=== PATIENT | female | born 1975 | race African-American/Black ===

== ENCOUNTER 2018-02-13 08:09 | Emergency (ER) | payer OTHER ==
[2018-02-13 09:10] LABS: Absolute Lymphocytes (CBC) 2.3 K/uL (0.7-4.9); Absolute Monocytes 0.4 K/uL (0.1-1.3); Absolute Neutrophil 4.7 K/uL (1.8-8.0); Basophils % 0.6 % (0-1.3); Eosinophils % 2.2 % (0-4.4); Hematocrit 39.2 % (36.0-45.0); Lymphocytes % 29.5 % (15.3-44.8); MCH 26.9 pg (27.0-35.0); MCV 83.8 fL (80-100); MPV 9.2 fL (7.6-11.3); Monocytes % 5.7 % (3.3-12.3); RBC Red Blood Cell Count 4.68 M/uL (3.86-4.86)
[2018-02-13] MEDS ORDERED: KETOROLAC 30 MG/ML INJ ONE (09:37)
[2018-02-13 10:01] LABS: Thyroid Stimulating Hormone 1.08 uIU/mL (0.34-5.60)
--- NOTE | 2018-02-13 10:49 | RAD REPORT ---
EXAM DESCRIPTION: CT - Soft Tissue Neck W/Contr - 02/13/2018 10:19 am CLINICAL HISTORY: Neck pain and neck swelling COMPARISON: September 2017 TECHNIQUE: Computed axial tomography of the neck was obtained. 50 cc Isovue-300 administered intrave nously. Coronal and sagittal reconstruction was performed All CT scans are performed using dose optimization technique as appropriate and may include automated exposure control or mA/KV adjustment according to patient size. FINDINGS: The adenoids and tonsils are mildly prominent without change from the prior exam. No stran ding is seen within the parapharyngeal fat. The remainder of the pharynx, larynx, tongue base and sub glottic trachea appear unremarkable. A left thyroidectomy has been performed. The right lobe of the thyroid gland is homogeneous. No lymphadenopathy is seen. The parotid and submandibular glands appear unremarkable. IMPRESSION: Mild prominence of the tonsils and adenoids without change from the prior exam may gopal jolie hypertrophy. Otherwise, unremarkable exam
--- NOTE | 2018-02-13 10:56 | ER ---
Nurse's Notes [facility] Name: Italia Avendano Age: 42 yrs Sex: Female : 1975 Arrival Date: 02/13/2018 Time: 08:12 Bed 20 Private MD: Diagnosis: Cervicalgia Presentation: 02/13 08:15 Presenting complaint: Patient states: Upper back and right sided neck pain x 4 days. hb Denies injury/fever. Transition of care: patient was not received from another setting of care. Onset of symptoms was February 10, 2018. Initial Sepsis Screen: Does the patient meet any 2 criteria? No. Patient's initial sepsis screen is negative. Does the patient have a suspected source of infection? No. Patient's initial sepsis screen is negative. Care prior to arrival: Aleve at 0300. 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 - Social history:: Smoking status: Patient/guardian denies using tobacco. Screenin:20 Abuse screen: Denies threats or abuse. Nutritional screening: No deficits noted. tw2 Tuberculosis screening: No symptoms or risk factors identified. Fall Risk None identified. Assessment: 08:25 General: Appears in no apparent distress. well groomed, Behavior is calm, cooperative, tw2 appropriate for age. Pain: Complains of pain in back of neck, right side, and pain right side of neck. Neuro: Level of Consciousness is awake, alert, obeys commands, Oriented to person, place, time, situation. Cardiovascular: Denies chest pain, shortness of breath, Heart tones S1 S2 Capillary refill < 3 seconds Patient's skin is warm and dry. Respiratory: Airway is patent Respiratory effort is even, unlabored, Respiratory pattern is regular, symmetrical, Breath sounds are clear bilaterally. GI: No signs and/or symptoms were reported involving the gastrointestinal system. : No signs and/or symptoms were reported regarding the genitourinary system. EENT: No signs and/or symptoms were reported regarding the EENT system. Derm: No signs and/or symptoms reported regarding the dermatologic system. Musculoskeletal: Reports pain in neck and upper back. 09:46 Reassessment: Patient appears in no apparent distress at this time. Patient and/or tw2 family updated on plan of care and expected duration. Pain level reassessed. Patient is alert, oriented x 3, equal unlabored respirations, skin warm/dry/pink. 10:34 Reassessment: Patient appears in no apparent distress at this time. Patient and/or tw2 family updated on plan of care and expected duration. Pain level reassessed. Patient is alert, oriented x 3, equal unlabored respirations, skin warm/dry/pink. 11:14 Reassessment: Patient appears in no apparent distress at this time. Patient and/or tw2 family updated on plan of care and expected duration. Pain level reassessed. Patient is alert, oriented x 3, equal unlabored respirations, skin warm/dry/pink. Vital Signs: 08:18 BP 130 / 83; Pulse 87; Resp 16; Temp 98.2; Pulse Ox 100% on R/A; Weight 107.5 kg; hb Height 5 ft. 3 in. (160.02 cm); Pain 8/10; 09:46 BP 134 / 93; Pulse 65; Resp 18; Pulse Ox 97% on R/A; tw2 10:34 BP 143 / 90; Pulse 72; Resp 17; Pulse Ox 98% on R/A; tw2 11:14 BP 124 / 74; Pulse 65; Resp 17; Pulse Ox 98% on R/A; tw2 08:18 Body Mass Index 41.98 (107.50 kg, 160.02 cm) ED Course: 08:12 Patient arrived in ED. mr 08:17 Triage completed. hb 08:17 Caty Diggs FNP-C is PHCP. kb 08:17 Jourdan Sanchez MD is Attending Physician. kb 08:18 Arm band placed on right wrist. hb 08:19 Deidre Alvarado, DESHAWN is Primary Nurse. tw2 08:20 Bed in low position. Call light in reach. Pulse ox on. NIBP on. tw2 08:40 No provider procedures requiring assistance completed. Missed attempt(s): 22 gauge in tw2 right antecubital area. Bleeding controlled, band aid applied, catheter tip intact. Inserted saline lock: 24 gauge in left antecubital area, using aseptic technique. Blood collected. 08:58 Radiology exam delayed due to lab results not completed at this time. (BUN/Creatinine). kw1 10:20 CT Soft Tissue Neck W/contr In Process Unspecified. EDMS 11:23 IV discontinued, intact, bleeding controlled, No redness/swelling at site. Pressure tw2 dressing applied. Administered Medications: 09:45 Drug: TORadol 30 mg Route: IVP; Site: left antecubital; tw2 11:23 Follow up: Response: No adverse reaction; Pain is decreased tw2 Outcome: 10:55 Discharge ordered by . marie 11:23 Discharged to home ambulatory. tw2 11:23 Condition: stable 11:23 Discharge instructions given to patient, Instructed on discharge instructions, follow up and referral plans. no drinking with medication, no driving heavy equipment, medication usage, Demonstrated understanding of instructions, follow-up care, medications, Prescriptions given X 1. 11:23 Patient left the ED. tw2 Signatures: Dispatcher [employer] EDMS Caty Diggs, BAG SHOP WORKER-C BAG SHOP WORKER-Lidia Her Heather, RN RN Deidre Alvarado RN RN tw2 Jazzy Jackson kw1
--- NOTE | 2018-02-13 10:56 | EDPHYS ---
Physician Documentation [facility] Name: Italia Avendano Age: 42 yrs Sex: Female : 1975 Arrival Date: 02/13/2018 Time: 08:12 Bed 20 Private MD: ED Physician Jourdan Sanchez HPI: 02/13 08:54 This 42 yrs old Black Female presents to ER via Ambulatory with complaints of Back kb Pain, Neck Problem. 08:54 The patient or guardian complains of pain, that is acute, tenderness. The symptoms are kb located at the right trapezius and right side of neck. Onset: The symptoms/episode began/occurred 5 day(s) ago. Context: The problem was sustained at home, The neck injury/problem resulted from from unknown cause. Associated signs and symptoms: The patient has no apparent associated signs or symptoms, The patient denies any alcohol use. The patient is not apparently intoxicated. No neurological symptoms were experienced by the patient prior to arrival in the emergency department. The pain radiates to the right trapezius. Modifying factors: The symptoms are alleviated by nothing. the symptoms are aggravated by movement, pressure. Severity of symptoms: At their worst the symptoms were moderate, in the emergency department the symptoms are unchanged. The patient has not experienced similar symptoms in the past. The patient has not recently seen a physician. 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 - Social history:: Smoking status: Patient/guardian denies using tobacco. ROS: 08:52 Constitutional: Negative for fever, chills, and weight loss, ENT: Negative for injury, kb pain, and discharge, Cardiovascular: Negative for chest pain, palpitations, and edema, Respiratory: Negative for shortness of breath, cough, wheezing, and pleuritic chest pain, Abdomen/GI: Negative for abdominal pain, nausea, vomiting, diarrhea, and constipation, : Negative for injury, bleeding, discharge, and swelling, MS/Extremity: Negative for injury and deformity, Skin: Negative for injury, rash, and discoloration, Neuro: Negative for headache, weakness, numbness, tingling, and seizure. 08:52 Neck: Positive for pain with movement, pain at rest, tenderness, of the right side of neck. 08:52 Back: Positive for pain at rest, pain with movement, of the right trapezius. Exam: 08:52 Constitutional: This is a well developed, well nourished patient who is awake, alert, kb and in no acute distress. Head/Face: Normocephalic, atraumatic. Chest/axilla: Normal chest wall appearance and motion. Nontender with no deformity. No lesions are appreciated. Cardiovascular: Regular rate and rhythm with a normal S1 and S2. No gallops, murmurs, or rubs. Normal PMI, no JVD. No pulse deficits. Respiratory: Lungs have equal breath sounds bilaterally, clear to auscultation and percussion. No rales, rhonchi or wheezes noted. No increased work of breathing, no retractions or nasal flaring. Abdomen/GI: Soft, non-tender, with normal bowel sounds. No distension or tympany. No guarding or rebound. No evidence of tenderness throughout. Skin: Warm, dry with normal turgor. Normal color with no rashes, no lesions, and no evidence of cellulitis. MS/ Extremity: Pulses equal, no cyanosis. Neurovascular intact. Full, normal range of motion. Neuro: Awake and alert, GCS 15, oriented to person, place, time, and situation. Cranial nerves II-XII grossly intact. Motor strength 5/5 in all extremities. Sensory grossly intact. Cerebellar exam normal. Normal gait. 08:52 Neck: External neck: tenderness, that is moderate, of the right side of neck. 08:52 Back: pain, that is moderate, ROM is painful, with rotation to the left, vertebral tenderness, is not appreciated. Vital Signs: 08:18 BP 130 / 83; Pulse 87; Resp 16; Temp 98.2; Pulse Ox 100% on R/A; Weight 107.5 kg; hb Height 5 ft. 3 in. (160.02 cm); Pain 8/10; 09:46 BP 134 / 93; Pulse 65; Resp 18; Pulse Ox 97% on R/A; tw2 10:34 BP 143 / 90; Pulse 72; Resp 17; Pulse Ox 98% on R/A; tw2 11:14 BP 124 / 74; Pulse 65; Resp 17; Pulse Ox 98% on R/A; tw2 08:18 Body Mass Index 41.98 (107.50 kg, 160.02 cm) hb MDM: 08:19 Patient medically screened. kb 08:54 Data reviewed: vital signs, nurses notes. Data interpreted: Pulse oximetry: on room air kb is 100 %. Interpretation: normal. 10:53 Counseling: I had a detailed discussion with the patient and/or guardian regarding: the kb historical points, exam findings, and any diagnostic results supporting the discharge/admit diagnosis, lab results, radiology results, the need for outpatient follow up, a family practitioner, to return to the emergency department if symptoms worsen or persist or if there are any questions or concerns that arise at home. 02/13 08:27 Order name: CBC with Diff; Complete Time: 09:14 kb 02/13 08:27 Order name: Basic Metabolic Panel; Complete Time: 10:04 kb 02/13 08:27 Order name: IV Start; Complete Time: 08:44 kb 02/13 08:27 Order name: CT Soft Tissue Neck W/contr; Complete Time: 10:50 kb 02/13 08:27 Order name: TSH; Complete Time: 10:04 kb Administered Medications: 09:45 Drug: TORadol 30 mg Route: IVP; Site: left antecubital; tw2 11:23 Follow up: Response: No adverse reaction; Pain is decreased tw2 Disposition: 14:19 Co-signature as Attending Physician, Jourdan Sanchez MD I agree with the assessment and vince plan of care. Disposition: 02/13/18 10:55 Discharged to Home. Impression: Cervicalgia. - Condition is Stable. - Discharge Instructions: Muscle Pain, Adult. - Prescriptions for Cyclobenzaprine 10 mg Oral Tablet - take 1 tablet by ORAL route every 8 hours As needed; 21 tablet. - Medication Reconciliation Form, Thank You Letter, Antibiotic Education, Prescription Opioid Use, Work release form form. - Follow up: Emergency Department; When: As needed; Reason: Worsening of condition. Follow up: Private Physician; When: 2 - 3 days; Reason: Recheck today's complaints, Continuance of care, Re-evaluation by your physician. Signatures: Dispatcher [employer] Caty Owens FNP-C CAN LINE OPERATOR-Jourdan Auguste MD MD cha Baxter, Heather, RN RN Deidre Alvarado RN RN tw2 Corrections: (The following items were deleted from the chart) 11:23 10:55 02/13/2018 10:55 Discharged to Home. Impression: Cervicalgia. Condition is tw2 Stable. Forms are Medication Reconciliation Form, Thank You Letter, Antibiotic Education, Prescription Opioid Use. Follow up: Emergency Department; When: As needed; Reason: Worsening of condition. Follow up: Private Physician; When: 2 - 3 days; Reason: Recheck today's complaints, Continuance of care, Re-evaluation by your physician. kb
[2018-02-13 11:27] VITALS: TEMP 98.2
[2018-02-13 11:30] VITALS: O2SAT 98
[2018-02-13 11:31] VITALS: BP 124/74
== END 2018-02-13 11:23 | disposition home or self-care (01) ==
LOC: ER 08:09
DX: M54.2 Cervicalgia (principal); Z88.0 Allergy status to penicillin; Z91.013 Allergy to seafood
CPT/HCPCS: 36415; 70491; 80048; 84443; 85025; 96374; 99284; Q9967

== ENCOUNTER 2018-11-15 09:12 | Emergency (ER) | payer OTHER ==
[2018-11-15] MEDS ORDERED: IBUPROFEN 400 MG TAB ONE (09:59)
[2018-11-15] MEDS ORDERED: NA CHLORIDE 0.9% 1,000 ML ONE (09:59)
--- NOTE | 2018-11-15 10:10 | RAD REPORT ---
EXAM DESCRIPTION: CT - Head Brain Wo Cont - 11/15/2018 10:04 am CLINICAL HISTORY: HEADACHE COMPARISON: No comparisons TECHNIQUE: All CT scans are performed using dose optimization technique as appropriate and may inclu de automated exposure control or mA/KV adjustment according to patient size. FINDINGS: No intracranial hemorrhage, hydrocephalus or extra-axial fluid collection.No areas of brai n edema or evidence of midline shift. The paranasal sinuses and mastoids are clear. The calvarium is intact. IMPRESSION: No acute intracranial abnormality.
--- NOTE | 2018-11-15 10:21 | RAD REPORT ---
EXAM DESCRIPTION: RAD - Chest Single View - 11/15/2018 10:16 am CLINICAL HISTORY: CHEST PAIN Chest pain. COMPARISON: No comparisons FINDINGS: Portable technique limits examination quality. The lungs are grossly clear. The heart is normal in size. No displaced fractures. IMPRESSION: No acute intrathoracic process suspected.
[2018-11-15] MEDS ORDERED: MEPERIDINE HCL 25 MG/0.5 ML ONE (10:42)
[2018-11-15] MEDS ORDERED: ONDANSETRON 4 MG/2 ML VIAL ONE (10:42)
[2018-11-15 10:46] LABS: Absolute Lymphocytes (CBC) 2.1 K/uL (0.7-4.9); Absolute Monocytes 0.3 K/uL (0.1-1.3); Absolute Neutrophil 4.6 K/uL (1.8-8.0); Basophils % 0.2 % (0-1.3); Eosinophils % 0.9 % (0-4.4); Hematocrit 39.8 % (36.0-45.0); Lymphocytes % 29.7 % (15.3-44.8); MPV 8.7 fL (7.6-11.3); Monocytes % 4.2 % (3.3-12.3); RBC Red Blood Cell Count 4.72 M/uL (3.86-4.86)
[2018-11-15 10:55] LABS: BUN Blood Urea Nitrogen 14 mg/dL (7-18); Bicarbonate 29 mmol/L (21-32); Glucose Level 101 mg/dL (74-106); NT PRO-BNP 8 pg/mL (<125); Potassium 3.7 mmol/L (3.5-5.1); Sodium Level 139 mmol/L (136-145); Troponin (Emerg Dept Use Only) < 0.02 ng/mL (0.0-0.045)
--- NOTE | 2018-11-15 11:30 | EDPHYS ---
Physician Documentation [facility] Name: Italia Avendano Age: 43 yrs Sex: Female : 1975 Arrival Date: 11/15/2018 Time: 09:15 Bed External Waiting Private MD: Ashanti Leach H ED Physician Ga Diaz HPI: 11/15 11:14 This 43 yrs old Black Female presents to ER via Ambulatory with complaints of rn Nausea/Vomiting, Headache, Neck Pain, >24Hrs Old, Chest Pain. 11:14 The patient complains of pain to the forehead. The patient describes the headache as rn aching. Onset: The symptoms/episode began/occurred 3 day(s) ago. Associated signs and symptoms: Pertinent positives: nausea, vomiting, Pertinent negatives: altered mental status, fever, vision changes, vision loss. Severity of symptoms: At its worst the pain was mild, in the emergency department the pain is unchanged. The symptoms are alleviated by nothing. the symptoms are aggravated by nothing. The patient has experienced similar episodes in the past. Reports hx of migraines, for last 3 days has been having headache not as bad as previous headaches, assoc with neck pain/nausea/chills/malaise. NO focal weakness or neuro complaints. . Historical: - Allergies: 09:30 PENICILLINS; ss 09:30 SHELLFISH; ss - PMHx: 13:02 Thyroid problem; Hypertension; sg - PSHx: 09:30 partial thyroidectomy; Tubal ligation; ss - Immunization history:: Adult Immunizations unknown. - Social history:: Smoking status: Patient/guardian denies using tobacco. - Ebola Screening: : Patient denies exposure to infectious person Patient denies travel to an Ebola-affected area in the 21 days before illness onset. Exam: 10:28 ECG was reviewed by the Attending Physician. rn Vital Signs: 09:30 BP 130 / 87; Pulse 104; Resp 15; Temp 99.3(TE); Pulse Ox 100% on R/A; Weight 111.58 kg; ss Height 5 ft. 3 in. (160.02 cm); Pain 10/10; 10:00 BP 142 / 98; Pulse 92; Resp 17; Pulse Ox 99% on R/A; Pain 7/10; sg 11:15 BP 140 / 112; Pulse 92; Resp 16; Pulse Ox 99% on R/A; sg 12:50 BP 121 / 97; Pulse 77; Resp 17; Pulse Ox 100% on R/A; sg 09:30 Body Mass Index 43.58 (111.58 kg, 160.02 cm) ss Annia Coma Score: 11:27 Eye Response: spontaneous(4). Verbal Response: oriented(5). Motor Response: obeys rn commands(6). Total: 15. MDM: 09:36 Patient medically screened. rn 11:27 Differential diagnosis: hypertensive headache, migraine, sinusitis, tension headache, rn vasomotor headache. Data reviewed: vital signs, nurses notes, lab test result(s), EKG, radiologic studies, CT scan, plain films, and as a result, I will discharge patient. Counseling: I had a detailed discussion with the patient and/or guardian regarding: the historical points, exam findings, and any diagnostic results supporting the discharge/admit diagnosis, lab results, radiology results, the need for outpatient follow up, to return to the emergency department if symptoms worsen or persist or if there are any questions or concerns that arise at home. Response to treatment: the patient's symptoms have mildly improved after treatment, and as a result, I will discharge patient. Special discussion: Based on the patient's history, exam, and Dx evaluation, there is no indication for emergent intervention or inpatient Tx. It is understood by the patient/guardian that if the Sx's persist or worsen they need to return immediately for re-evaluation. I discussed with the patient/guardian in detail that at this point there is no indication for admission to the hospital. It is understood, however, that if the symptoms persist or worsen the patient needs to return immediately for re-evaluation. 11:27 ED course: Constant chest pain for 3 days, normal ecg and neg trop, neg ct head, will rn dc home with return precautions, + low grade temp, possible viral cephalgia/syndrome. . 11:36 Counseling: I had a detailed discussion with the patient and/or guardian regarding: the rn presence of at least one elevated blood pressure reading (>120/80) during this emergency department visit. 11/15 09:45 Order name: CBC with Diff; Complete Time: 11: rn 11/15 09:45 Order name: Basic Metabolic Panel; Complete Time: 11: rn 11/15 09:45 Order name: Troponin (emerg Dept Use Only); Complete Time: 11:11 rn 11/15 09:45 Order name: PROBNP; Complete Time: 11: rn 11/15 09:45 Order name: Flu; Complete Time: 11: rn 11/15 09:45 Order name: [place] Screen Profile; Complete Time: 11:27 rn 11/15 09:45 Order name: CT Head Brain wo Cont; Complete Time: 10:32 rn 11/15 09:45 Order name: XRAY Chest (1 view); Complete Time: 10:32 rn 11/15 09:45 Order name: IV Start; Complete Time: 10:25 rn 11/15 09:45 Order name: EKG; Complete Time: 09:47 rn 11/15 09:45 Order name: EKG - Nurse/Tech; Complete Time: 10:25 rn EC:28 Rate is 81 beats/min. Rhythm is regular. QRS [place] is Normal. [place] interval is normal. QRS rn interval is normal. QT interval is normal. No Q waves. T waves are Normal. No ST changes noted. Clinical impression: Normal ECG. Interpreted by me. Administered Medications: 10:24 Drug: NS 0.9% 1000 ml Route: IV; Rate: 1000 ml; Site: left hand; ss 11:30 Follow up: Response: No adverse reaction; IV Status: Completed infusion; IV Intake: sv 1000ml 10:37 Drug: Zofran 4 mg Route: IVP; Site: left hand; ss 11:00 Follow up: Response: No adverse reaction sg 10:39 Drug: Motrin 800 mg Route: PO; ss 11:25 Follow up: Response: No adverse reaction sg 10:39 Drug: Demerol 25 mg Route: IVP; Site: left hand; ss 11:15 Follow up: Response: No adverse reaction sg 11:54 Drug: cloNIDine 0.1 mg Route: PO; sg 13:00 Follow up: Response: No adverse reaction; Blood pressure is lowered sv 14:05 Drug: Tylenol #3 (300 mg-30 mg) 1 tablet Route: PO; sv 14:05 Follow up: Response: Medication administered at discharge. sv Disposition: 11/15/18 11:29 Discharged to Home. Impression: Headache, Chest pain, unspecified, Cephalgia. - Condition is Stable. - Discharge Instructions: Nonspecific Chest Pain, General Headache Without Cause. - Medication Reconciliation Form, Thank You Letter, Antibiotic Education, Prescription Opioid Use form. - Follow up: Private Physician; When: As needed; Reason: Recheck today's complaints, Re-evaluation by your physician. - Problem is new. - Symptoms have improved. Signatures: Dispatcher [employer] EDMS Arlette Bryan RN RN sv Gay, Steven, RN RN Ga Diaz MD MD rn Smirch, Shelby, RN RN ss Corrections: (The following items were deleted from the chart) 14:05 11:29 11/15/2018 11:29 Discharged to Home. Impression: Headache; Chest pain, ss unspecified; Cephalgia. Condition is Stable. Forms are Medication Reconciliation Form, Thank You Letter, Antibiotic Education, Prescription Opioid Use. Follow up: Private Physician; When: As needed; Reason: Recheck today's complaints, Re-evaluation by your physician. Problem is new. Symptoms have improved. rn 17:27 14:05 11/15/2018 11:29 Discharged to Home. Impression: Headache; Chest pain, sv unspecified; Cephalgia. Condition is Stable. Discharge Instructions: Nonspecific Chest Pain, General Headache Without Cause. Forms are Medication Reconciliation Form, Thank You Letter, Antibiotic Education, Prescription Opioid Use. Follow up: Private Physician; When: As needed; Reason: Recheck today's complaints, Re-evaluation by your physician. Problem is new. Symptoms have improved. ss
--- NOTE | 2018-11-15 11:30 | ER ---
Nurse's Notes [facility] Name: Italia Avendano Age: 43 yrs Sex: Female : 1975 Arrival Date: 11/15/2018 Time: 09:15 Bed External Waiting Private MD: Ashanti Leach H Diagnosis: Headache;Chest pain, unspecified;Cephalgia Presentation: 11/15 09:26 Presenting complaint: Patient states: Throbbing headache, R sided neck pain, N/V and ss chest discomfort that began 3 days ago. Denies fever. Transition of care: patient was not received from another setting of care. Onset of symptoms was November 13, 2018. Risk Assessment: Do you want to hurt yourself or someone else? Patient reports no desire to harm self or others. Initial Sepsis Screen: Does the patient meet any 2 criteria? HR > 90 bpm. Does the patient have a suspected source of infection? No. Patient's initial sepsis screen is negative. Care prior to arrival: None. 09:26 Method Of Arrival: Ambulatory 09:26 Acuity: BARRY 3 ss Historical: - Allergies: 09:30 PENICILLINS; ss 09:30 SHELLFISH; ss - PMHx: 13:02 Thyroid problem; Hypertension; sg - PSHx: 09:30 partial thyroidectomy; Tubal ligation; ss - Immunization history:: Adult Immunizations unknown. - Social history:: Smoking status: Patient/guardian denies using tobacco. - Ebola Screening: : Patient denies exposure to infectious person Patient denies travel to an Ebola-affected area in the 21 days before illness onset. Screenin:10 Abuse screen: Denies threats or abuse. Denies injuries from another. Nutritional sg screening: No deficits noted. Tuberculosis screening: No symptoms or risk factors identified. Never had TB. Fall Risk None identified. Assessment: 09:55 General: Appears in no apparent distress. comfortable, well groomed, well developed, sg well nourished, Behavior is calm, cooperative, appropriate for age. Pain: Complains of pain in head and neck Quality of pain is described as aching, throbbing. Neuro: Level of Consciousness is awake, alert, obeys commands, Oriented to person, place, time, situation, Speech is normal, Facial symmetry appears normal, Pupils are PERRLA. Cardiovascular: Patient's skin is warm and dry. Chest pain is denied. Respiratory: Airway is patent Respiratory effort is even, unlabored, Respiratory pattern is regular, symmetrical. GI: Abdomen is round Bowel sounds. : No signs and/or symptoms were reported regarding the genitourinary system. EENT: No signs and/or symptoms were reported regarding the EENT system. Derm: Skin is pink, warm \T\ dry. Musculoskeletal: No signs and/or symptoms reported regarding the musculoskeletal system. 10:00 Reassessment: Patient appears in no apparent distress at this time. attempt to find IV sg access at this time, pt reports she is a difficult stick and the ultrasound machine has to be used a lot of times. pt transported to CT will attempt to look with ultrasound when pt returns from CT. 10:07 Reassessment: xray with pt at this time. sg Vital Signs: 09:30 BP 130 / 87; Pulse 104; Resp 15; Temp 99.3(TE); Pulse Ox 100% on R/A; Weight 111.58 kg; ss Height 5 ft. 3 in. (160.02 cm); Pain 10/10; 10:00 BP 142 / 98; Pulse 92; Resp 17; Pulse Ox 99% on R/A; Pain 7/10; sg 11:15 BP 140 / 112; Pulse 92; Resp 16; Pulse Ox 99% on R/A; sg 12:50 BP 121 / 97; Pulse 77; Resp 17; Pulse Ox 100% on R/A; sg 09:30 Body Mass Index 43.58 (111.58 kg, 160.02 cm) ss Annia Coma Score: 11:27 Eye Response: spontaneous(4). Verbal Response: oriented(5). Motor Response: obeys rn commands(6). Total: 15. ED Course: 09:15 Patient arrived in ED. sb2 09:16 Ashanti Leach DO is Private Physician. sb2 09:28 Triage completed. ss 09:30 Arm band placed on right wrist. ss 09:36 Ga Diaz MD is Attending Physician. rn 10:00 Santos Mercer RN is Primary Nurse. sg 10:04 CT completed. Patient tolerated procedure well. Patient moved to CT via wheelchair. jg6 Patient moved back from CT. 10:06 CT Head Brain wo Cont In Process Unspecified. EDMS 10:12 X-ray completed. Portable x-ray completed in exam room. Patient tolerated procedure jb2 well. 10:15 XRAY Chest (1 view) In Process Unspecified. EDMS 10:21 EKG done, by monitor tech. reviewed by Ga Diaz MD. at1 10:25 Inserted saline lock: 24 gauge in left hand, using aseptic technique. Patient maintains ss SpO2 saturation greater than 95% on room air. 10:30 Patient has correct armband on for positive identification. sv 14:05 No provider procedures requiring assistance completed. IV discontinued, intact, sv bleeding controlled, No redness/swelling at site. Pressure dressing applied. Administered Medications: 10:24 Drug: NS 0.9% 1000 ml Route: IV; Rate: 1000 ml; Site: left hand; ss 11:30 Follow up: Response: No adverse reaction; IV Status: Completed infusion; IV Intake: sv 1000ml 10:37 Drug: Zofran 4 mg Route: IVP; Site: left hand; ss 11:00 Follow up: Response: No adverse reaction sg 10:39 Drug: Motrin 800 mg Route: PO; ss 11:25 Follow up: Response: No adverse reaction sg 10:39 Drug: Demerol 25 mg Route: IVP; Site: left hand; ss 11:15 Follow up: Response: No adverse reaction sg 11:54 Drug: cloNIDine 0.1 mg Route: PO; sg 13:00 Follow up: Response: No adverse reaction; Blood pressure is lowered sv 14:05 Drug: Tylenol #3 (300 mg-30 mg) 1 tablet Route: PO; sv 14:05 Follow up: Response: Medication administered at discharge. sv Intake: 11:30 IV: 1000ml; Total: 1000ml. sv Outcome: 11:29 Discharge ordered by . rn 14:05 Patient left the ED. ss 14:05 Discharged to home ambulatory, with family. sv 14:05 Condition: stable 14:05 Discharge instructions given to patient, Instructed on discharge instructions, follow up and referral plans. Demonstrated understanding of instructions, follow-up care. Signatures: Dispatcher [employer] EDMS Arlette Bryan RN RN Santos Mercer RN RN sg Alejandro Hidalgo jb2 Ga Diaz MD MD rn Smirch, Shelby, RN RN Bobbi Rodriguez, veterinary surgeon EKG Tat1 Merle Edmonds sb2 Josette Daly jg6 Corrections: (The following items were deleted from the chart) 18:06 17:27 Patient left the ED. julianne vásquez
[2018-11-15] MEDS ORDERED: cloNIDine HCl 0.1 MG TAB ONE (12:04)
--- NOTE | 2018-11-15 12:22 | EKG ---
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
[2018-11-15] MEDS ORDERED: CODEINE 30MG/APAP 300MG TAB ONE (14:01)
[2018-11-15 14:32] VITALS: TEMP 99.3
[2018-11-15 14:36] VITALS: BP 121/97; O2SAT 100
== END 2018-11-15 17:27 | disposition home or self-care (01) ==
LOC: ER 09:12
DX: R11.2 Nausea with vomiting, unspecified (principal); R51 Headache; R07.9 Chest pain, unspecified; Z88.0 Allergy status to penicillin; Z91.013 Allergy to seafood; I10 Essential (primary) hypertension
CPT/HCPCS: 36415; 70450; 71045; 80048; 83880; 84484; 85025; 86308; 87804; 93005; 96361; 96374; 96375; 99285; J2175; J2405; J7030

== ENCOUNTER 2019-02-05 08:24 | Emergency (ER) | payer OTHER ==
[2019-02-05] MEDS ORDERED: KETOROLAC 30 MG/ML INJ ONE (10:26)
--- NOTE | 2019-02-05 11:02 | RAD REPORT ---
EXAM DESCRIPTION: RAD - Knee Left 2 View - 02/05/2019 10:52 am CLINICAL HISTORY: PAIN COMPARISON: No comparisons FINDINGS: Medial compartment space narrowing is present with small tibial spine osteophytes. No frac ture, dislocation or joint effusion. IMPRESSION: Mild medial compartment osteoarthritis.
--- NOTE | 2019-02-05 11:04 | RAD REPORT ---
EXAM DESCRIPTION: RAD - Lumbar Spine 3 Views - 02/05/2019 10:53 am CLINICAL HISTORY: LOWER BACK PAIN Radiculopathy COMPARISON: Lumbar Spine 3 Views dated 02/03/2017 FINDINGS: Vertebral body heights appear maintained. No compression fracture noted. Mild disc thinnin g with small endplate osteophytes at L5-S1. No spondylolysis or spondylolisthesis. IMPRESSION: Mild spondylosis L5-S1.
--- NOTE | 2019-02-05 11:14 | ER ---
Nurse's Notes [facility] Name: Italia Avendano Age: 43 yrs Sex: Female : 1975 Arrival Date: 02/05/2019 Time: 08:26 Bed 13 Private MD: Ashanti Leach H Diagnosis: Low back pain;Pain in left knee Presentation: 02/05 08:54 Presenting complaint: Patient states: mid low back pain since Tuesday feels like needles iw in her back, pt states she was putting together furniture this weekend, also has left knee pain that feels like needles. Transition of care: patient was not received from another setting of care. Onset of symptoms was February 02, 2019. Risk Assessment: Do you want to hurt yourself or someone else? Patient reports no desire to harm self or others. Initial Sepsis Screen: Does the patient meet any 2 criteria? No. Patient's initial sepsis screen is negative. Does the patient have a suspected source of infection? No. Patient's initial sepsis screen is negative. Care prior to arrival: None. 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 - Social history:: Smoking status: Patient/guardian denies using tobacco. - Ebola Screening: : Patient negative for fever greater than or equal to 101.5 degrees Fahrenheit, and additional compatible Ebola Virus Disease symptoms Patient denies exposure to infectious person Patient denies travel to an Ebola-affected area in the 21 days before illness onset No symptoms or risks identified at this time. Screenin:05 Abuse screen: Denies threats or abuse. Denies injuries from another. Nutritional hb screening: No deficits noted. Tuberculosis screening: No symptoms or risk factors identified. Fall Risk None identified. Assessment: 09:30 General: Appears in no apparent distress. uncomfortable, Behavior is calm, cooperative. hb Pain: Pain currently is 9 out of 10 on a pain scale. Neuro: Level of Consciousness is awake, alert, obeys commands, Oriented to person, place, time, situation. Cardiovascular: Capillary refill < 3 seconds Patient's skin is warm and dry. Respiratory: Airway is patent Respiratory effort is even, unlabored, Respiratory pattern is regular, symmetrical. GI: No signs and/or symptoms were reported involving the gastrointestinal system. : No signs and/or symptoms were reported regarding the genitourinary system. EENT: No signs and/or symptoms were reported regarding the EENT system. Derm: Skin is pink, warm \T\ dry. Musculoskeletal: Reports low back and right knee pain. 10:30 Reassessment: Patient appears in no apparent distress at this time. Patient and/or hb family updated on plan of care and expected duration. Pain level reassessed. Patient is alert, oriented x 3, equal unlabored respirations, skin warm/dry/pink. 11:30 Reassessment: Patient appears in no apparent distress at this time. Patient and/or hb family updated on plan of care and expected duration. Pain level reassessed. Patient is alert, oriented x 3, equal unlabored respirations, skin warm/dry/pink. Vital Signs: 08:58 BP 129 / 84; Pulse 85; Resp 16; Temp 97.6; Pulse Ox 100% on R/A; Weight 95.25 kg; iw Height 5 ft. 2 in. (157.48 cm); Pain 10/10; 08:58 Body Mass Index 38.41 (95.25 kg, 157.48 cm) iw ED Course: 08:26 Patient arrived in ED. mr 08:27 Ashanti Leach DO is Private Physician. mr 08:47 Caty Diggs FNP-C [facility]. kb 08:47 Jourdan Sanchez MD is Attending Physician. kb 08:57 Triage completed. iw 08:58 Arm band placed on. iw 09:06 Sudha Antonio, RN is Primary Nurse. hb 09:30 Patient has correct armband on for positive identification. Bed in low position. Call hb light in reach. Side rails up X 1. 09:50 Radiology exam delayed due to test not completed at this time. jr1 10:51 Lumbar Spine (3 Views) XRAY In Process Unspecified. EDMS 10:51 Knee Left 2 View XRAY In Process Unspecified. EDMS 11:14 Angel LeachDO Benoit is Referral Physician. kb 11:30 No provider procedures requiring assistance completed. Patient did not have IV access hb during this emergency room visit. Administered Medications: 10:16 Drug: TORadol 60 mg Route: IM; Site: left deltoid; hb 11:48 Follow up: Response: No adverse reaction hj 11:36 Drug: [place] (7.5 mg-325 mg) 1 tabs Route: PO; hj 11:48 Follow up: Response: No adverse reaction; Pain is decreased hj Outcome: 11:14 Discharge ordered by MD. kb 11:30 Discharged to home ambulatory. hb 11:30 Condition: stable 11:30 Discharge instructions given to patient, Instructed on discharge instructions, follow up and referral plans. medication usage, Demonstrated understanding of instructions, follow-up care, medications. 11:31 Prescriptions given X 2. hb 11:49 Patient left the ED. hb Signatures: Dispatcher [employer] EDMS Caty Diggs, NUT THREADER-C NUT THREADER-Moni StewartaMarisol mr McelroyElvira [facility] Jaqui Khanna, RN RN Elpidio Vega RN RN hj Baxter, Heather, DESHAWN RN hb
--- NOTE | 2019-02-05 11:14 | EDPHYS ---
Physician Documentation [facility] Name: Italia Avendano Age: 43 yrs Sex: Female : 1975 Arrival Date: 02/05/2019 Time: 08:26 Bed 13 Private MD: Ashanti Leach H ED Physician Jourdan Sanchez HPI: 02/05 09:47 This 43 yrs old Black Female presents to ER via Ambulatory with complaints of Back kb Pain, Knee Pain. 09:47 The patient presents with pain that is acute, with no known mechanism of injury. The kb symptoms are located in the low back. Onset: The symptoms/episode began/occurred 4 day(s) ago. The pain does not radiate. Associated signs and symptoms: The patient has no apparent associated signs or symptoms. The problem was sustained from unknown cause. Modifying factors: The patient symptoms are alleviated by nothing, the patient symptoms are aggravated by any movement. Severity of symptoms: At their worst the symptoms were moderate, in the emergency department the symptoms are unchanged. The patient has not experienced similar symptoms in the past. The patient has not recently seen a physician. Pt reports low back pain and left knee pain that started on Tuesday. Denies any injury or trauma. . 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 - Social history:: Smoking status: Patient/guardian denies using tobacco. - Ebola Screening: : Patient negative for fever greater than or equal to 101.5 degrees Fahrenheit, and additional compatible Ebola Virus Disease symptoms Patient denies exposure to infectious person Patient denies travel to an Ebola-affected area in the 21 days before illness onset No symptoms or risks identified at this time. ROS: 09:42 Constitutional: Negative for fever, chills, and weight loss, Cardiovascular: Negative kb for chest pain, palpitations, and edema, Respiratory: Negative for shortness of breath, cough, wheezing, and pleuritic chest pain, Abdomen/GI: Negative for abdominal pain, nausea, vomiting, diarrhea, and constipation, Skin: Negative for injury, rash, and discoloration, Neuro: Negative for headache, weakness, numbness, tingling, and seizure. 09:42 Back: Positive for pain at rest, pain with movement, of the low back area. 09:42 MS/extremity: Positive for pain, tenderness, of the left knee. Exam: 09:46 Constitutional: This is a well developed, well nourished patient who is awake, alert, kb and in no acute distress. Head/Face: Normocephalic, atraumatic. Chest/axilla: Normal chest wall appearance and motion. Nontender with no deformity. No lesions are appreciated. Cardiovascular: Regular rate and rhythm with a normal S1 and S2. No gallops, murmurs, or rubs. Normal PMI, no JVD. No pulse deficits. Respiratory: Lungs have equal breath sounds bilaterally, clear to auscultation and percussion. No rales, rhonchi or wheezes noted. No increased work of breathing, no retractions or nasal flaring. Abdomen/GI: Soft, non-tender, with normal bowel sounds. No distension or tympany. No guarding or rebound. No evidence of tenderness throughout. Skin: Warm, dry with normal turgor. Normal color with no rashes, no lesions, and no evidence of cellulitis. Neuro: Awake and alert, GCS 15, oriented to person, place, time, and situation. Cranial nerves II-XII grossly intact. Motor strength 5/5 in all extremities. Sensory grossly intact. Cerebellar exam normal. Normal gait. 09:46 Back: pain, that is moderate, ROM is painful, normal spinal alignment noted. 09:46 Musculoskeletal/extremity: Extremities: grossly normal except: noted in the left knee: pain, tenderness, ROM: intact in all extremities, Circulation is intact in all extremities. Sensation intact. Weight bearing: able to fully bear weight. 09:46 Neuro: Exam negative for acute changes. Vital Signs: 08:58 BP 129 / 84; Pulse 85; Resp 16; Temp 97.6; Pulse Ox 100% on R/A; Weight 95.25 kg; iw Height 5 ft. 2 in. (157.48 cm); Pain 10/10; 08:58 Body Mass Index 38.41 (95.25 kg, 157.48 cm) iw MDM: 08:47 Patient medically screened. kb 09:46 Data reviewed: vital signs, nurses notes. Data interpreted: Pulse oximetry: on room air kb is 100 %. Interpretation: normal. 09:48 ED course: x-rays ordered per pt request. kb 11:14 Counseling: I had a detailed discussion with the patient and/or guardian regarding: the kb historical points, exam findings, and any diagnostic results supporting the discharge/admit diagnosis, radiology results, the need for outpatient follow up, a family practitioner, to return to the emergency department if symptoms worsen or persist or if there are any questions or concerns that arise at home. 02/05 09:13 Order name: Lumbar Spine (3 Views) XRAY; Complete Time: 11:05 kb 02/05 09:13 Order name: Knee Left 2 View XRAY; Complete Time: 11:05 kb Administered Medications: 10:16 Drug: TORadol 60 mg Route: IM; Site: left deltoid; hb 11:48 Follow up: Response: No adverse reaction hj 11:36 Drug: [place] (7.5 mg-325 mg) 1 tabs Route: PO; hj 11:48 Follow up: Response: No adverse reaction; Pain is decreased hj Disposition: 02/06 06:57 Co-signature as Attending Physician, Jourdan Sanchez MD I agree with the assessment and vince plan of care. Disposition: 02/05/19 11:14 Discharged to Home. Impression: Low back pain, Pain in left knee. - Condition is Stable. - Discharge Instructions: Back Injury Prevention, [id number]-[id number], Back Pain, Adult, Xmrk-[id number], Back Exercises, Atmw-[id number], Knee Pain, Afvy-cy-Jcvj. - Prescriptions for Cyclobenzaprine 10 mg Oral Tablet - take 1 tablet by ORAL route every 8 hours As needed; 21 tablet. Diclofenac Sodium 75 mg Oral Tablet, Delayed Release (E.C.) - take 1 tablet by ORAL route 2 times per day As needed; 30 tablet. - Medication Reconciliation Form, Thank You Letter, Antibiotic Education, Prescription Opioid Use form. - Follow up: Emergency Department; When: As needed; Reason: Worsening of condition. Follow up: Ashanti Leach DO; When: 2 - 3 days; Reason: Recheck today's complaints, Continuance of care, Re-evaluation by your physician. Signatures: Dispatcher [employer] EDMS Caty Diggs FNP-C COATER HAND-Ckb Jourdan Sanchez MD MD cha Williams, Irene, RN RN Elpidio Vega, RN RN Sudha Hedrick, DESHAWN HESS Corrections: (The following items were deleted from the chart) 02/05 11:49 11:14 02/05/2019 11:14 Discharged to Home. Impression: Low back pain; Pain in left hb knee. Condition is Stable. Forms are Medication Reconciliation Form, Thank You Letter, Antibiotic Education, Prescription Opioid Use. Follow up: Emergency Department; When: As needed; Reason: Worsening of condition. Follow up: Ashanti Leach; When: 2 - 3 days; Reason: Recheck today's complaints, Continuance of care, Re-evaluation by your physician. kb
[2019-02-05] MEDS ORDERED: HYDROCODONE/APAP 7.5/325 MG TAB ONE (11:50)
[2019-02-05 12:20] VITALS: BP 129/84; TEMP 97.6; O2SAT 100
== END 2019-02-05 11:49 | disposition home or self-care (01) ==
LOC: ER 08:24
DX: M54.5 Low back pain (principal); M25.562 Pain in left knee; I10 Essential (primary) hypertension; E07.9 Disorder of thyroid, unspecified; Z88.0 Allergy status to penicillin; Z91.013 Allergy to seafood
CPT/HCPCS: 72100; 96372; 99283

== ENCOUNTER 2019-02-06 21:44 | Emergency (ER) | payer OTHER ==
[2019-02-06] MEDS ORDERED: KETOROLAC 30 MG/ML INJ ONE (22:22)
[2019-02-06] MEDS ORDERED: NA CHLORIDE 0.9% 1,000 ML ONE (22:22)
[2019-02-06 22:30] LABS: Urine Blood 2+ (NEG); Urine Glucose NEGATIVE (NEG); Urine Protein TRACE (NEG); Urine Specific Gravity 1.015 (1.005-1.030)
[2019-02-06] MEDS ORDERED: ONDANSETRON 4 MG/2 ML VIAL ONE (22:34)
[2019-02-06] MEDS ORDERED: MORPHINE 4 MG/ML SYR ONE (22:34)
[2019-02-06 23:07] LABS: Absolute Lymphocytes (CBC) 0.7 K/uL (0.7-4.9); Absolute Monocytes 0.2 K/uL (0.1-1.3); Absolute Neutrophil 4.3 K/uL (1.8-8.0); Basophils % 0.4 % (0-1.3); Eosinophils % 0.4 % (0-4.4); Hematocrit 40.1 % (36.0-45.0); MPV 8.8 fL (7.6-11.3); Monocytes % 4.5 % (3.3-12.3); RBC Red Blood Cell Count 4.81 M/uL (3.86-4.86)
[2019-02-06 23:18] LABS: Albumin 3.2 g/dL (3.4-5.0); Bilirubin Direct 0.1 mg/dL (0-0.2); Bilirubin Total 0.4 mg/dL (0.2-1.0); Potassium 4.1 mmol/L (3.5-5.1); Protein, Total 8.3 g/dL (6.4-8.2)
--- NOTE | 2019-02-07 00:34 | ER ---
Nurse's Notes [facility] Name: Italia Avendano Age: 43 yrs Sex: Female : 1975 Arrival Date: 02/06/2019 Time: 21:45 Bed 23 Private MD: Ashanti Leach H Diagnosis: Sciatica, left side Presentation: 02/06 21:47 Presenting complaint: Patient states: I was here yesterday and it is the same problem ed1 except I am getting worse. I can't eat and I just throw up. Transition of care: patient was not received from another setting of care. Onset of symptoms was February 01, 2019. Risk Assessment: Do you want to hurt yourself or someone else? Patient reports no desire to harm self or others. Initial Sepsis Screen: Does the patient meet any 2 criteria? No. Patient's initial sepsis screen is negative. Does the patient have a suspected source of infection? No. Patient's initial sepsis screen is negative. Care prior to arrival: None. 21:47 Method Of Arrival: Ambulatory ed1 21:47 Acuity: BARRY 3 ed1 Triage Assessment: 21:48 General: Appears uncomfortable, Behavior is calm, cooperative. Pain: Complains of pain ed1 in low back area Pain currently is 10 out of 10 on a pain scale. 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 - Social history:: Smoking status: Patient/guardian denies using tobacco. - Ebola Screening: : Patient negative for fever greater than or equal to 101.5 degrees Fahrenheit, and additional compatible Ebola Virus Disease symptoms Patient denies exposure to infectious person Patient denies travel to an Ebola-affected area in the 21 days before illness onset No symptoms or risks identified at this time. Screenin:58 Abuse screen: Denies threats or abuse. Denies injuries from another. Nutritional ca1 screening: No deficits noted. Tuberculosis screening: No symptoms or risk factors identified. Fall Risk None identified. Assessment: 21:58 General: Appears in no apparent distress. uncomfortable, Behavior is calm, cooperative, ca1 appropriate for age. Pain: Complains of pain in low back area Pain radiates to right leg and left leg Pain currently is 10 out of 10 on a pain scale. Quality of pain is described as stinging, Pain began 2-3 days ago. Is continuous. Neuro: Level of Consciousness is awake, alert, obeys commands, Oriented to person, place, time, situation. Cardiovascular: Heart tones S1 S2 present Capillary refill < 3 seconds Patient's skin is warm and dry. Respiratory: Airway is patent Respiratory effort is even, unlabored, Respiratory pattern is regular, symmetrical, Breath sounds are clear bilaterally. GI: Abdomen is round non-distended, Bowel sounds present X 4 quads. Abd is soft and non tender X 4 quads. Reports nausea, vomiting. : No deficits noted. No signs and/or symptoms were reported regarding the genitourinary system. EENT: No deficits noted. No signs and/or symptoms were reported regarding the EENT system. Derm: Skin is intact, is healthy with good turgor, Skin is pink, warm \T\ dry. Musculoskeletal: Circulation, motion, and sensation intact. Capillary refill < 3 seconds, Range of motion: intact in all extremities. 22:55 Reassessment: Patient appears in no apparent distress at this time. Patient and/or ca1 family updated on plan of care and expected duration. Pain level reassessed. Patient is alert, oriented x 3, equal unlabored respirations, skin warm/dry/pink. Vital Signs: 21:48 BP 130 / 89; Pulse 109; Resp 20; Temp 98.7(O); Pulse Ox 96% on R/A; Weight 97.52 kg; ed1 Height 5 ft. 3 in. (160.02 cm); Pain 10/10; 22:40 BP 138 / 95; Pulse 81; Resp 19 S; Temp 98.1(O); Pulse Ox 99% on R/A; ca1 23:30 BP 140 / 98; Pulse 92; Resp 18 S; Temp 98.6(O); Pulse Ox 100% on R/A; ca1 02/07 00:53 BP 134 / 86; Pulse 79; Resp 17; Temp 98; Pulse Ox 98% ; rv 02/06 21:48 Body Mass Index 38.09 (97.52 kg, 160.02 cm) ed1 ED Course: 02/06 21:45 Patient arrived in ED. am2 21:45 Stevie Bustillos MD is Private Physician. am2 21:45 Ashanti Leach DO is Private Physician. am2 21:48 Triage completed. ed1 21:48 Arm band placed on right wrist. ed1 21:52 Reina Lyons RN is Primary Nurse. ca1 21:58 Patient has correct armband on for positive identification. Bed in low position. Call ca1 light in reach. Side rails up X 1. Pulse ox on. NIBP on. Warm blanket given. 21:59 Miguelito Garcia MD is Attending Physician. tw4 22:30 Missed attempt(s): 20 gauge in right antecubital area. 22 gauge in left antecubital ca1 area. Bleeding controlled, band aid applied, catheter tip intact. 22:40 Inserted saline lock: 20 gauge in right antecubital area, using aseptic technique. ca1 ,using aseptic technique. by Andrew Macedo RN Blood collected. 02/07 00:09 CT completed. Patient tolerated procedure well. Patient moved to CT via wheelchair. eh Patient moved back from CT. 00:11 CT Stone Protocol In Process Unspecified. EDMS 00:33 Ashanti Leach DO is Referral Physician. tw4 00:53 No provider procedures requiring assistance completed. IV discontinued, intact, rv bleeding controlled, No redness/swelling at site. Pressure dressing applied. Administered Medications: 02/06 22:18 Not Given (Physician Discretion): TORadol 30 mg IVP once tw4 22:40 Drug: NS 0.9% 1000 ml Route: IV; Rate: 1 bolus; Site: left antecubital; ca1 02/07 00:53 Follow up: IV Status: Completed infusion; IV Intake: 1000ml rv 02/06 22:42 Drug: Zofran 4 mg Route: IVP; Site: left antecubital; ca1 02/07 00:52 Follow up: Response: No adverse reaction rv 02/06 22:45 Drug: morphine 4 mg Route: IVP; Site: left antecubital; ca1 02/07 00:52 Follow up: Response: Pain is decreased rv 00:52 Drug: morphine 2 mg Route: IVP; Site: left antecubital; rv 00:52 Follow up: Response: Medication administered at discharge. rv Intake: 00:53 IV: 1000ml; Total: 1000ml. rv Outcome: 00:33 Discharge ordered by . tw4 00:54 Discharged to home ambulatory, patient verbalized she has a ride home. is rv picking her up. 00:54 Condition: good 00:54 Discharge instructions given to patient, Instructed on discharge instructions, follow up and referral plans. medication usage, Demonstrated understanding of instructions, follow-up care, medications, Prescriptions given X 2. 00:55 Patient left the ED. rv Signatures: Dispatcher [employer] EDMS Curry Ron Erika, RN RN ed1 Bobbi Brady am2 Miguelito Garcia MD MD tw4 Andrew Macedo, RN RN rv Acob, DESHAWN Huang RN ca1 Corrections: (The following items were deleted from the chart) 02/06 23:15 22:55 Missed attempt(s): 20 gauge in right antecubital area. 22 gauge in left ca1 antecubital area. Bleeding controlled, band aid applied, catheter tip intact. ca1 23:15 23:05 Inserted saline lock: 20 gauge in right antecubital area, using aseptic ca1 technique. ,using aseptic technique. by Andrew Macedo RN Blood collected. ca1 23:48 22:40 Pulse 81bpm; Resp 19bpm; Spontaneous; Pulse Ox 99% RA; Temp 98.1F Oral; ca1 ca1 02/07 00:53 00:53 BP 134 / 86; Pulse 79bpm; Resp 17bpm; Pulse Ox 98%; rv rv
--- NOTE | 2019-02-07 00:34 | EDPHYS ---
Physician Documentation [facility] Name: Italia Avendano Age: 43 yrs Sex: Female : 1975 Arrival Date: 02/06/2019 Time: 21:45 Bed 23 Private MD: Ashanti Leach H ED Physician Miguelito Garcia HPI: 02/07 04:38 This 43 yrs old Black Female presents to ER via Ambulatory with complaints of Low Back tw4 Pain. 04:38 The patient presents with pain that is acute. The patient presents with pain that is tw4 acute. The symptoms are located in the low back. The pain does not radiate. Onset: The symptoms/episode began/occurred today. Modifying factors: The patient symptoms are alleviated by nothing, the patient symptoms are aggravated by any movement. The patient has not experienced similar symptoms in the past. 04:38 Associated signs and symptoms: Pertinent positives: radiation of pain down left leg, tw4 Pertinent negatives: nausea, numbness, tingling, urinary retention, vomiting, weakness. 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 - Social history:: Smoking status: Patient/guardian denies using tobacco. - Ebola Screening: : Patient negative for fever greater than or equal to 101.5 degrees Fahrenheit, and additional compatible Ebola Virus Disease symptoms Patient denies exposure to infectious person Patient denies travel to an Ebola-affected area in the 21 days before illness onset No symptoms or risks identified at this time. ROS: 02/07 04:38 Constitutional: Negative for fever, chills, and weight loss, Eyes: Negative for injury, tw4 pain, redness, and discharge, Cardiovascular: Negative for chest pain, palpitations, and edema, Respiratory: Negative for shortness of breath, cough, wheezing, and pleuritic chest pain, Abdomen/GI: Negative for abdominal pain, nausea, vomiting, diarrhea, and constipation, MS/Extremity: Negative for injury and deformity, Skin: Negative for injury, rash, and discoloration, Neuro: Negative for headache, weakness, numbness, tingling, and seizure. Back: Positive for injury or acute deformity, decreased range of motion, pain at rest, pain with movement, radiated pain, Negative for radiated pain. Exam: 04:38 Constitutional: This is a well developed, well nourished patient who is awake, alert, tw4 and in no acute distress. Head/Face: Normocephalic, atraumatic. Chest/axilla: Normal chest wall appearance and motion. Nontender with no deformity. No lesions are appreciated. Cardiovascular: Regular rate and rhythm with a normal S1 and S2. No gallops, murmurs, or rubs. Normal PMI, no JVD. No pulse deficits. Respiratory: Lungs have equal breath sounds bilaterally, clear to auscultation and percussion. No rales, rhonchi or wheezes noted. No increased work of breathing, no retractions or nasal flaring. Abdomen/GI: Soft, non-tender, with normal bowel sounds. No distension or tympany. No guarding or rebound. No evidence of tenderness throughout. MS/ Extremity: Pulses equal, no cyanosis. Neurovascular intact. Full, normal range of motion. Neuro: Awake and alert, GCS 15, oriented to person, place, time, and situation. Cranial nerves II-XII grossly intact. Motor strength 5/5 in all extremities. Sensory grossly intact. Cerebellar exam normal. Normal gait. 04:38 Back: pain, that is moderate, of the left low back, muscle spasm, is appreciated in the left low back. Vital Signs: 02/06 21:48 BP 130 / 89; Pulse 109; Resp 20; Temp 98.7(O); Pulse Ox 96% on R/A; Weight 97.52 kg; ed1 Height 5 ft. 3 in. (160.02 cm); Pain 10/10; 22:40 BP 138 / 95; Pulse 81; Resp 19 S; Temp 98.1(O); Pulse Ox 99% on R/A; ca1 23:30 BP 140 / 98; Pulse 92; Resp 18 S; Temp 98.6(O); Pulse Ox 100% on R/A; ca1 02/07 00:53 BP 134 / 86; Pulse 79; Resp 17; Temp 98; Pulse Ox 98% ; rv 02/06 21:48 Body Mass Index 38.09 (97.52 kg, 160.02 cm) ed1 MDM: 02/06 21:59 Patient medically screened. 02/07 04:38 Differential diagnosis: arthritis, sciatica, UTI. Data reviewed: vital signs, nurses tw4 notes. Counseling: I had a detailed discussion with the patient and/or guardian regarding: the historical points, exam findings, and any diagnostic results supporting the discharge/admit diagnosis. Medication response: morphine partially relieved the patient's pain. Response to treatment: the patient's symptoms have mildly improved after treatment, and as a result, I will discharge patient. Special discussion: I discussed with the patient/guardian in detail that at this point there is no indication for admission to the hospital. It is understood, however, that if the symptoms persist or worsen the patient needs to return immediately for re-evaluation. 02/06 22:06 Order name: Basic Metabolic Panel; Complete Time: 00:35 02/07 00:35 Interpretation: Normal except: GFR 58. 02/06 22:06 Order name: CBC with Diff; Complete Time: 23:11 [facility] 02/06 22:06 Order name: Creatinine for Radiology; Complete Time: 00:35 [facility] 02/06 22:06 Order name: Hepatic Function; Complete Time: 00:35 02/07 00:35 Interpretation: Normal except: TP 8.3; ALB 3.2; GLOB 5.1; A/G 0.6. 02/06 22:06 Order name: Lipase; Complete Time: 00:35 [facility] 02/07 00:35 Interpretation: Normal except: LIP 57. 02/06 22:28 Order name: Urine Dipstick--Ancillary (enter results) [facility] 02/06 22:01 Order name: Urine Dipstick-Ancillary (obtain specimen); Complete Time: 23:16 [facility] 02/06 22:28 Order name: Urine --Ancillary (enter results) nv02/06 23:11 Order name: CT Stone Protocol [facility] 02/06 22:01 Order name: Urine Test (obtain specimen); Complete Time: 23:16 [facility] 02/06 22:06 Order name: IV Saline Lock; Complete Time: 23:16 [facility] 02/06 22:06 Order name: Labs collected and sent; Complete Time: 23:16 tw4 Administered Medications: 02/06 22:18 Not Given (Physician Discretion): TORadol 30 mg IVP once tw4 22:40 Drug: NS 0.9% 1000 ml Route: IV; Rate: 1 bolus; Site: left antecubital; ca1 02/07 00:53 Follow up: IV Status: Completed infusion; IV Intake: 1000ml rv 02/06 22:42 Drug: Zofran 4 mg Route: IVP; Site: left antecubital; ca1 02/07 00:52 Follow up: Response: No adverse reaction rv 02/06 22:45 Drug: morphine 4 mg Route: IVP; Site: left antecubital; ca1 02/07 00:52 Follow up: Response: Pain is decreased rv 00:52 Drug: morphine 2 mg Route: IVP; Site: left antecubital; rv 00:52 Follow up: Response: Medication administered at discharge. rv Disposition: 02/07/19 00:33 Discharged to Home. Impression: Sciatica, left side. - Condition is Stable. - Discharge Instructions: Sciatica. - Prescriptions for Tylenol- Codeine #4 300-60 mg Oral Tablet - take 1 tablet by ORAL route every 6 hours As needed; 6 tablet. Tramadol 50 mg Oral Tablet - take 1 tablet by ORAL route every 8 hours as needed; 12 tablet. - Medication Reconciliation Form, Thank You Letter, Antibiotic Education, Prescription Opioid Use form. - Follow up: Ashanti Leach DO; When: Upon discharge from the Emergency Department; Reason: If symptoms return, Recheck today's complaints, Continuance of care. - Problem is new. - Symptoms have improved. Signatures: Dispatcher [employer] EDMS Ayesha Alvarado RN RN ed1 Miguelito Garcia MD MD tw4 Andrew Macedo RN RN rv Reina Lyons RN RN ca1 Corrections: (The following items were deleted from the chart) 00:55 00:33 02/07/2019 00:33 Discharged to Home. Impression: Sciatica, left side. Condition rv is Stable. Forms are Medication Reconciliation Form, Thank You Letter, Antibiotic Education, Prescription Opioid Use. Follow up: Ashanti Leach; When: Upon discharge from the Emergency Department; Reason: If symptoms return, Recheck today's complaints, Continuance of care. Problem is new. Symptoms have improved. tw4
[2019-02-07] MEDS ORDERED: MORPHINE 2 MG/ML SYR ONE (01:00)
[2019-02-07 01:20] VITALS: BP 134/86; TEMP 98; O2SAT 98
--- NOTE | 2019-02-07 10:02 | RAD REPORT ---
EXAM DESCRIPTION: CT - Stone Protocol - 02/07/2019 3:05 am CLINICAL HISTORY: The patient is 43 years old and is Female; PAIN TECHNIQUE: Axial computed tomography images of the abdomen and pelvis without intravenous contrast. Sagittal and coronal reformatted images were created and reviewed. This CT exam was performed usi ng one or more of the following dose reduction techniques: automated exposure control, adjustment o f the mA and/or kV according to patient size, and/or use of iterative reconstruction technique. COMPARISON: CT of the abdomen and pelvis June 28, 2014. FINDINGS: LUNG BASES: Unremarkable. No mass. No consolidation. ABDOMEN: LIVER: Redemonstration of ill-defined low attenuating lesion within the inferior right hepatic l obe measuring grossly 2.2 x 3.1 cm is noted. This is overall unchanged from prior exam of June 042013. The liver is otherwise unremarkable. GALLBLADDER AND BILE DUCTS: No calcified stones. No ductal dilation. PANCREAS: Unremarkable. No ductal dilation. SPLEEN: Unremarkable. ADRENALS: Unremarkable. No mass. KIDNEYS AND URETERS: No obstructing stones. No hydronephrosis. STOMACH AND BOWEL: The stomach is minimally distended. The small bowel is normal in caliber. A m oderate amount stool is present throughout colon. No evidence of bowel obstruction. No significant jimmy wel wall thickening. Colonic diverticulosis is noted, without associated inflammatory changes to sugg est diverticulitis. PELVIS: APPENDIX: The appendix is normal in caliber without surrounding inflammation. BLADDER: Unremarkable. No stones. REPRODUCTIVE: Unremarkable as visualized. ABDOMEN and PELVIS: INTRAPERITONEAL SPACE: Trace free fluid is present within the pelvis which is likely physiologic . No free air. BONES/JOINTS: No acute fracture. SOFT TISSUES: The soft tissues are normal. VASCULATURE: Unremarkable. No abdominal aortic aneurysm. LYMPH NODES: Unremarkable. No enlarged lymph nodes. IMPRESSION: Colonic diverticulosis without evidence of diverticulitis. Electronically signed by: Yoselin Brown MD 02/07/2019 12:14 AM CDT Due to temporary technical issues with the PACS/Fluency reporting system, reports are being signed by the in house radiologist as a courtesy to ensure prompt reporting. The interpreting radiologist is f ully responsible for the content of the report.
== END 2019-02-07 00:55 | disposition home or self-care (01) ==
LOC: ER 21:44
DX: M54.32 Sciatica, left side (principal); I10 Essential (primary) hypertension; Z88.0 Allergy status to penicillin; Z91.013 Allergy to seafood
CPT/HCPCS: 36415; 74176; 76377; 80048; 80076; 81003; 81025; 83690; 85025; 96361; 96374; 96375; 99284; J2270; J2405; J7030

== ENCOUNTER 2019-06-06 15:53 | Emergency (ER) | payer OTHER ==
[2019-06-06] MEDS ORDERED: NA CHLORIDE 0.9% 1,000 ML ONE ×2 (16:38→18:47)
[2019-06-06] MEDS ORDERED: MORPHINE 4 MG/ML SYR ONE ×2 (16:38→19:14)
[2019-06-06] MEDS ORDERED: ONDANSETRON 4 MG/2 ML VIAL ONE (16:38)
[2019-06-06] MEDS ORDERED: FAMOTIDINE 20 MG/2 ML VIAL IV ONE (17:06)
[2019-06-06 17:18] LABS: Absolute Lymphocytes (CBC) 2.5 K/uL (0.7-4.9); Basophils % 0.7 % (0-1.3); Hematocrit 42.7 % (36.0-45.0); MPV 8.6 fL (7.6-11.3); RBC Red Blood Cell Count 5.07 M/uL (3.86-4.86)
[2019-06-06 17:37] LABS: ALT/SGPT 26 U/L (12-78); AST/SGOT 18 U/L (15-37); Albumin 3.8 g/dL (3.4-5.0); Alkaline Phosphatase 101 U/L (45-117); BUN Blood Urea Nitrogen 13 mg/dL (7-18); Bicarbonate 27 mmol/L (21-32); Bilirubin Direct < 0.1 mg/dL (0-0.2); Bilirubin Total 0.4 mg/dL (0.2-1.0); Glucose Level 87 mg/dL (74-106); Lipase 74 U/L (73-393); Magnesium 2.2 mg/dL (1.8-2.4); Potassium 4.8 mmol/L (3.5-5.1); Protein, Total 9.3 g/dL (6.4-8.2); Sodium Level 139 mmol/L (136-145)
[2019-06-06] MEDS ORDERED: METHYLPREDNISOLONE 125 MG INJ ONE (18:10)
[2019-06-06] MEDS ORDERED: DIPHENHYDRAMINE 50 MG/ML VIAL ONE (18:10)
--- NOTE | 2019-06-06 18:28 | RAD REPORT ---
EXAM DESCRIPTION: CTAbdomen Pelvis W Contrast - 06/06/2019 6:20 pm CLINICAL HISTORY: Abdominal pain. ABD PAIN COMPARISON: <Comparisons> TECHNIQUE: Biphasic CT imaging of the abdomen and pelvis was performed with 100 ml non-ionic IV cont rast. All CT scans are performed using dose optimization technique as appropriate and may include automated exposure control or mA/KV adjustment according to patient size. FINDINGS: The lung bases are clear. The liver demonstrates a 3 cm benign hemangioma in the inferior right lobe. No additional liver lesio n or biliary dilatation. Spleen, pancreas, adrenal glands and kidneys are within normal limits. No bowel obstruction, free air, free fluid or abscess. The appendix is normal. No evidence of signi ficant lymphadenopathy. No suspicious bony findings. IMPRESSION: No acute intra-abdominal or pelvic finding.
[2019-06-06 18:46] LABS: Urine Blood 1+ (NEG); Urine Glucose NEGATIVE (NEG); Urine Protein NEGATIVE (NEG)
--- NOTE | 2019-06-06 19:00 | ER ---
Nurse's Notes [facility] Name: Italia Avendano Age: 44 yrs Sex: Female : 1975 Arrival Date: 06/06/2019 Time: 15:57 Bed 6 Private MD: Ashanti Leach H Diagnosis: Nausea and vomiting;Diarrhea, unspecified Presentation: 06/06 16:02 Presenting complaint: Patient states: going on 2 days now i have been having real tw2 really bad lower abdomen pain, vomiting, diarrhea, my throat has been burning. Transition of care: patient was not received from another setting of care. Onset of symptoms was June 06, 2019. Risk Assessment: Do you want to hurt yourself or someone else? Patient reports no desire to harm self or others. Initial Sepsis Screen: Does the patient meet any 2 criteria? No. Patient's initial sepsis screen is negative. Does the patient have a suspected source of infection? No. Patient's initial sepsis screen is negative. Care prior to arrival: None. 16:02 Method Of Arrival: Ambulatory tw2 16:02 Acuity: BARRY 3 tw2 Triage Assessment: 16:04 General: Appears uncomfortable, obese, Behavior is calm, cooperative, appropriate for tw2 age. Pain: Complains of pain in abdomen. Respiratory: Reports sore throat. GI: Reports lower abdominal pain, diarrhea, nausea, vomiting. 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 - Social history:: Smoking status: . - Ebola Screening: : Patient denies travel to an Ebola-affected area in the 21 days before illness onset. Screenin:50 Abuse screen: Denies threats or abuse. Denies injuries from another. Nutritional sv screening: No deficits noted. Tuberculosis screening: No symptoms or risk factors identified. Fall Risk None identified. Assessment: 16:55 General: Appears in no apparent distress. uncomfortable, well groomed, well developed, sv Behavior is calm, cooperative, appropriate for age. Pain: Complains of pain in abdomen Pain currently is 10 out of 10 on a pain scale. Is continuous. Neuro: Level of Consciousness is awake, alert, obeys commands, Oriented to person, place, time, situation, Moves all extremities. Full function Speech is normal. Respiratory: Respiratory effort is even, unlabored, Respiratory pattern is regular, symmetrical. GI: Abdomen is round Reports diarrhea, vomiting. Derm: Skin is normal. 17:50 Reassessment: Patient appears in no apparent distress at this time. Patient and/or sg family updated on plan of care and expected duration. Pain level reassessed. Patient is alert, oriented x 3, equal unlabored respirations, skin warm/dry/pink. 18:09 Reassessment: pt reports a mild reaction to CT contrast during a previous exam, reports sg having itching after IV contrast, Caitlyn DOYLE notified, ordered to premedicate pt, pt medicated, see EMAR. 19:15 Reassessment: NS fluid ongoing as bolus.patient complaining of abdominal pain. ED rr5 provider aware with order made and carried out. Patient states symptoms have not improved. General: Appears in no apparent distress. uncomfortable, Behavior is calm, cooperative, appropriate for age. Pain: Complains of pain in right lower quadrant Pain does not radiate. Pain currently is 10 out of 10 on a pain scale. Quality of pain is described as aching, Pain began gradually, Is intermittent. Neuro: Level of Consciousness is awake, alert, obeys commands, Oriented to person, place, time, situation. Cardiovascular: Capillary refill < 3 seconds Patient's skin is warm and dry. Respiratory: Airway is patent Respiratory effort is even, unlabored, Respiratory pattern is regular, symmetrical. GI: Abdomen is round Bowel sounds present X 4 quads. Abd is soft and non tender Reports lower abdominal pain, diarrhea. : No signs and/or symptoms were reported regarding the genitourinary system. EENT: No signs and/or symptoms were reported regarding the EENT system. Derm: Skin is pink, warm \T\ dry. Musculoskeletal: Circulation, motion, and sensation intact. Capillary refill < 3 seconds. 19:58 Reassessment: Patient appears in no apparent distress at this time. Patient is alert, rr5 oriented x 3, equal unlabored respirations, skin warm/dry/pink. discharge instruction given and explained without complaints made. Patient states feeling better. Patient states symptoms have improved. Pain: Pain currently is 7 out of 10 on a pain scale. Vital Signs: 16:02 BP 124 / 79; Pulse 88; Resp 17; Temp 98.3(TE); Pulse Ox 100% on R/A; Weight 99.34 kg tw2 (R); Height 5 ft. 2 in. (157.48 cm); Pain 10/10; 17:02 BP 139 / 86; Pulse 68; Resp 16; Pulse Ox 100% ; sv 17:38 BP 136 / 92; Pulse 62; Resp 16; Pulse Ox 98% ; sv 19:15 BP 125 / 84; Pulse 66; Resp 19; Temp 98; Pulse Ox 99% ; Pain 10/10; rr5 16:02 Body Mass Index 40.06 (99.34 kg, 157.48 cm) tw2 ED Course: 15:57 Patient arrived in ED. mr 15:57 Ashanti Leach DO is Private Physician. mr 16:02 Triage completed. tw2 16:02 Arm band placed on. tw2 16:06 Jourdan Manning PA is PHCP. cp 16:06 Ga Diaz MD is Attending Physician. cp 16:25 Arlette Bryan, DESHAWN is Primary Nurse. sv 16:50 Patient has correct armband on for positive identification. Bed in low position. Call sv light in reach. Adult w/ patient. Pulse ox on. NIBP on. Door closed. Head of bed elevated. 16:52 Radiology exam delayed due to lab results not completed at this time. (BUN/Creatinine). vm2 16:55 Missed attempt(s): 22 gauge in left antecubital area. Bleeding controlled, band aid sv applied, catheter tip intact. 17:00 Initial lab(s) drawn, by me, sent to lab. Inserted saline lock: 22 gauge in right sv antecubital area, using aseptic technique. ,using aseptic technique. DIFFUSICS Blood collected. Flushed right antecubital with 5 ml normal saline. 17:08 Awaiting lab results. sv 17:[address] Scan. sv 17:38 Throat Culture Sent. sv 17:42 Primary Nurse role handed off by Arlette Bryan, RN sv 18:07 Santos Mercer, RN is Primary Nurse. sg 18:21 CT Abd/Pelvis - IV Contrast Only In Process Unspecified. EDMS 18:59 Woody Braswell MD is Referral Physician. cp 19:58 No provider procedures requiring assistance completed. IV discontinued, intact, rr5 bleeding controlled, No redness/swelling at site. Pressure dressing applied. Administered Medications: 17:02 Drug: NS 0.9% 1000 ml Route: IV; Rate: 1 bolus; Site: right antecubital; sv 17:02 Drug: Zofran 4 mg Route: IVP; Site: right antecubital; sv 17:04 Drug: morphine 4 mg {Note: RASS 1.} Route: IVP; Site: right antecubital; sv 17:05 Drug: Pepcid 20 mg Route: IVP; Site: right antecubital; sv 18:10 Drug: Benadryl 25 mg Route: IVP; Site: right antecubital; sg 19:10 Follow up: Response: No adverse reaction rr5 18:10 Drug: SOLU-Medrol 125 mg Route: IVP; Site: right antecubital; sg 19:10 Follow up: Response: No adverse reaction rr5 18:48 Drug: NS 0.9% 1000 ml Route: IV; Rate: 1 bolus; Site: right antecubital; aa5 19:57 Follow up: Response: No adverse reaction; IV Status: Completed infusion; IV Intake: rr5 1000ml 19:22 Drug: morphine 4 mg {Note: rass 0.} Route: IVP; Site: right antecubital; rr5 19:57 Follow up: Response: No adverse reaction; RASS: Alert and Calm (0) rr5 Intake: 19:57 IV: 1000ml; Total: 1000ml. rr5 Outcome: 19:00 Discharge ordered by . cp 19:58 Discharged to home ambulatory. rr5 19:58 Condition: stable 19:58 Discharge instructions given to patient, Instructed on discharge instructions, follow up and referral plans. Demonstrated understanding of instructions, follow-up care, medications, Prescriptions given X 2. 19:59 Patient left the ED. rr5 Signatures: Dispatcher [employer] EDAR Arlette Bryan RN RN Santos Mercer RN RN [facility] PembrokeMarisol keith CarrionElizabeth everett RN RN aa5 Jourdan Manning PA PA cp Wise, Tara, RN RN tw2 Camilla Desai 2 Caio Matthew, RN RN rr5
--- NOTE | 2019-06-06 19:01 | EDPHYS ---
Physician Documentation [facility] Name: Italia Avendano Age: 44 yrs Sex: Female : 1975 Arrival Date: 06/06/2019 Time: 15:57 Bed 6 Private MD: Ashanti Leach H ED Physician Ga Diaz HPI: 06/06 16:40 This 44 yrs old Black Female presents to ER via Ambulatory with complaints of Abdominal cp Pain, Vomiting/Diarrhea. 16:40 The patient presents with abdominal pain in the periumbilical area. cp 16:40 Onset: The symptoms/episode began/occurred 2 day(s) ago. Associated signs and symptoms: cp Pertinent positives: diarrhea, nausea, vomiting, Pertinent negatives: blood in stools, constipation, fever, vomiting blood. The symptoms are described as sharp. Severity of pain: in the emergency department the pain is a 10 / 10. 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 - Social history:: Smoking status: . - Ebola Screening: : Patient denies travel to an Ebola-affected area in the 21 days before illness onset. ROS: 16:45 Cardiovascular: Negative for chest pain, edema, palpitations. cp 16:45 Eyes: Negative for injury, pain, redness, and discharge. cp 16:45 Constitutional: Positive for poor PO intake, Negative for body aches, chills, fever. 16:45 ENT: Negative for drainage from ear(s), ear pain, sore throat, difficulty swallowing, difficulty handling secretions. 16:45 Respiratory: Negative for cough, shortness of breath, wheezing. 16:45 Abdomen/GI: Positive for abdominal pain, nausea, vomiting, and diarrhea, anorexia, Negative for constipation, abdominal distension, black/tarry stool, rectal bleeding. 16:45 Back: Negative for radiated pain. 16:45 : Negative for urinary symptoms. 16:45 Skin: Negative for rash. 16:45 Neuro: Negative for altered mental status, headache, weakness. 16:45 All other systems are negative. Exam: 17:00 Constitutional: The patient appears in no acute distress, alert, awake, cp non-diaphoretic, non-toxic, well developed, well nourished, uncomfortable. 17:00 Head/Face: Normocephalic, atraumatic. cp 17:00 Eyes: Periorbital structures: appear normal, Conjunctiva: normal, no exudate, no injection, Sclera: no appreciated abnormality, Lids and lashes: appear normal, bilaterally. 17:00 ENT: External ear(s): are unremarkable, Nose: is normal, Mouth: is normal, Posterior pharynx: Airway: no evidence of obstruction, patent, swelling, is not appreciated, erythema, that is mild, exudate, is not appreciated. 17:00 Chest/axilla: Inspection: normal, Palpation: is normal, no crepitus, no tenderness. 17:00 Cardiovascular: Rate: normal, Rhythm: regular. 17:00 Respiratory: the patient does not display signs of respiratory distress, Respirations: normal, no use of accessory muscles, no retractions, no splinting, no tachypnea, labored breathing, is not present, Breath sounds: are clear throughout, no decreased breath sounds, no stridor, no wheezing. 17:00 Abdomen/GI: Inspection: abdomen appears normal, Bowel sounds: active, all quadrants, Palpation: soft, in all quadrants, mild abdominal tenderness, in the umbilical area, rebound tenderness, is not appreciated, voluntary guarding, is elicited in the umbilical area, involuntary guarding, is not appreciated. 17:00 Neuro: Orientation: to person, place \T\ time. Mentation: is normal, Motor: moves all fours, strength is normal. Vital Signs: 16:02 BP 124 / 79; Pulse 88; Resp 17; Temp 98.3(TE); Pulse Ox 100% on R/A; Weight 99.34 kg tw2 (R); Height 5 ft. 2 in. (157.48 cm); Pain 10/10; 17:02 BP 139 / 86; Pulse 68; Resp 16; Pulse Ox 100% ; sv 17:38 BP 136 / 92; Pulse 62; Resp 16; Pulse Ox 98% ; sv 19:15 BP 125 / 84; Pulse 66; Resp 19; Temp 98; Pulse Ox 99% ; Pain 10/10; rr5 16:02 Body Mass Index 40.06 (99.34 kg, 157.48 cm) tw2 MDM: 16:17 Patient medically screened. 19:00 Data reviewed: vital signs, nurses notes, lab test result(s), radiologic studies, CT cp scan, and as a result, I will discharge patient. 19:00 Counseling: I had a detailed discussion with the patient and/or guardian regarding: the cp historical points, exam findings, and any diagnostic results supporting the discharge/admit diagnosis, lab results, radiology results, the need for outpatient follow up, a terminal gauger, to return to the emergency department if symptoms worsen or persist or if there are any questions or concerns that arise at home. Response to treatment: improved, and as a result, I will discharge patient. 06/06 16:33 Order name: Basic Metabolic Panel; Complete Time: 18:04 06/06 18:04 Interpretation: Normal except: CRE 1.33; GFR 53. 06/06 16:33 Order name: CBC with Diff; Complete Time: 18:04 06/06 16:33 Order name: Creatinine for Radiology; Complete Time: 18:04 06/06 16:33 Order name: Hepatic Function; Complete Time: 18:04 06/06 16:33 Order name: Lipase; Complete Time: 18:04 06/06 16:33 Order name: Magnesium; Complete Time: 18:04 06/06 16:33 Order name: Strep; Complete Time: 18:04 06/06 16:33 Order name: CT Abd/Pelvis - IV Contrast Only; Complete Time: 18:39 06/06 17:38 Order name: Throat Culture [facility] 06/06 18:41 Order name: Urine Dipstick--Ancillary (enter results) em1 06/06 18:41 Order name: Urine --Ancillary (enter results) 1 06/06 16:33 Order name: IV Saline Lock; Complete Time: 17:05 06/06 16:33 Order name: Labs collected and sent; Complete Time: 17:05 06/06 16:33 Order name: Urine Dipstick-Ancillary (obtain specimen); Complete Time: 18:49 06/06 16:33 Order name: Urine Test (obtain specimen); Complete Time: 18:49 cp 06/06 18:40 Order name: PO challenge; Complete Time: 19:18 cp Administered Medications: 17:02 Drug: NS 0.9% 1000 ml Route: IV; Rate: 1 bolus; Site: right antecubital; sv 17:02 Drug: Zofran 4 mg Route: IVP; Site: right antecubital; sv 17:04 Drug: morphine 4 mg {Note: RASS 1.} Route: IVP; Site: right antecubital; sv 17:05 Drug: Pepcid 20 mg Route: IVP; Site: right antecubital; sv 18:10 Drug: Benadryl 25 mg Route: IVP; Site: right antecubital; sg 19:10 Follow up: Response: No adverse reaction rr5 18:10 Drug: SOLU-Medrol 125 mg Route: IVP; Site: right antecubital; sg 19:10 Follow up: Response: No adverse reaction rr5 18:48 Drug: NS 0.9% 1000 ml Route: IV; Rate: 1 bolus; Site: right antecubital; aa5 19:57 Follow up: Response: No adverse reaction; IV Status: Completed infusion; IV Intake: rr5 1000ml 19:22 Drug: morphine 4 mg {Note: rass 0.} Route: IVP; Site: right antecubital; rr5 19:57 Follow up: Response: No adverse reaction; RASS: Alert and Calm (0) rr5 Disposition: 06/07 07:00 Co-signature as Attending Physician, Ga Diaz MD. rn Disposition: 06/06/19 19:00 Discharged to Home. Impression: Nausea and vomiting, Diarrhea, unspecified. - Condition is Stable. - Discharge Instructions: Diarrhea, Adult, Nausea and Vomiting, Adult. - Prescriptions for Bentyl 20 mg Oral Tablet - take 1 tablet by ORAL route every 6 hours As needed; 30 tablet. Zofran 4 mg Oral Tablet - take 1 tablet by ORAL route every 12 hours As needed; 20 tablet. - Medication Reconciliation Form, Thank You Letter, Antibiotic Education, Prescription Opioid Use form. - Follow up: Woody Braswell MD; When: 1 - 2 days; Reason: Recheck today's complaints. - Problem is new. - Symptoms have improved. Signatures: Dispatcher [employer] Arlette Stacy, RN RN Santos Mcmanus, RN RN Ga Gonzalez MD MD rn Calderon, Audri RN RN aa5 Jourdan Manning PA PA cp Wise, Tara RN RN tw2 Caio Matthew, RN RN rr5 Corrections: (The following items were deleted from the chart) 06/06 19:59 19:00 06/06/2019 19:00 Discharged to Home. Impression: Nausea and vomiting; Diarrhea, rr5 unspecified. Condition is Stable. Forms are Medication Reconciliation Form, Thank You Letter, Antibiotic Education, Prescription Opioid Use. Follow up: Woody Braswell; When: 1 - 2 days; Reason: Recheck today's complaints. Problem is new. Symptoms have improved. cp
[2019-06-06 21:36] VITALS: BP 125/84; TEMP 98; O2SAT 99
== END 2019-06-06 19:59 | disposition home or self-care (01) ==
LOC: ER 15:53
DX: R19.7 Diarrhea, unspecified (principal); I10 Essential (primary) hypertension; E07.9 Disorder of thyroid, unspecified; Z88.0 Allergy status to penicillin; Z91.013 Allergy to seafood
CPT/HCPCS: 96361; 87070; 85025; 80048; 36415; 83735; 81025; 80076; 87081; 81003; 83690; 74177; 96375; 96374; 99284; Q9967; J7030 ×2; J2930; J2405

== ENCOUNTER 2019-07-26 12:43 | Emergency (ER) | payer OTHER ==
[2019-07-26] MEDS ORDERED: LIDOCAINE VISCOUS 2% SOLN 15 ML UDC ONE (13:25)
[2019-07-26] MEDS ORDERED: MAGNE/ALUM HYDROXD 30 ML UCUP ONE (13:25)
[2019-07-26] MEDS ORDERED: HYDROCODONE/APAP 7.5/325 MG TAB ONE (14:42)
[2019-07-26] MEDS ORDERED: KETOROLAC 30 MG/ML INJ ONE (14:42)
[2019-07-26] MEDS ORDERED: FENTANYL CITR 100 MCG/2 ML ONE (15:47)
--- NOTE | 2019-07-26 15:54 | ER ---
Nurse's Notes [facility] Name: Italia Avendano Age: 44 yrs Sex: Female : 1975 Arrival Date: 07/26/2019 Time: 12:45 Bed 19 Private MD: Ashanti Leach H Diagnosis: Pain in throat Presentation: 07/26 12:50 Presenting complaint: Difficulty swallowing and nonproductive cough x 2 weeks, sore hb throat , bilateral ear pain, and hoarse voice x 2 days. Denies fever. Transition of care: patient was not received from another setting of care. Onset of symptoms was July 2019. Risk Assessment: Do you want to hurt yourself or someone else? Patient reports no desire to harm self or others. Initial Sepsis Screen: Does the patient meet any 2 criteria? No. Patient's initial sepsis screen is negative. Does the patient have a suspected source of infection? No. Patient's initial sepsis screen is negative. Care prior to arrival: None. 12:50 Method Of Arrival: Ambulatory hb 12:50 Acuity: BARRY 4 hb Historical: - Allergies: 12:53 PENICILLINS; hb 12:53 SHELLFISH; hb - Home Meds: 12:53 topiramate 50 mg Oral CSpX 1 cap once daily [Active]; hb - PMHx: 12:53 Hypertension; Thyroid problem; hb - PSHx: 12:53 Tubal ligation; partial thyroidectomy; hb - Immunization history:: Adult Immunizations up to date. - Social history:: Smoking status: Patient/guardian denies using tobacco. - Ebola Screening: : No symptoms or risks identified at this time. Screenin:24 Abuse screen: Denies threats or abuse. Denies injuries from another. Nutritional aj1 screening: No deficits noted. Tuberculosis screening: No symptoms or risk factors identified. Fall Risk None identified. Assessment: 13:00 General: Appears in no apparent distress. uncomfortable, Behavior is calm, cooperative, aj1 appropriate for age. Pain: Complains of pain in right ear, left ear, left aspect of posterior pharynx, right aspect of posterior pharynx and neck Pain currently is 10 out of 10 on a pain scale. Neuro: Level of Consciousness is awake, alert, obeys commands, Oriented to person, place, time, situation. Cardiovascular: Patient's skin is warm and dry. Respiratory: Airway is patent Respiratory effort is even, unlabored, Respiratory pattern is regular, symmetrical. GI: No signs and/or symptoms were reported involving the gastrointestinal system. : No signs and/or symptoms were reported regarding the genitourinary system. EENT: Throat is reddened bilaterally. Derm: No signs and/or symptoms reported regarding the dermatologic system. Skin is pink, warm \T\ dry. normal. Musculoskeletal: No signs and/or symptoms reported regarding the musculoskeletal system. Circulation, motion, and sensation intact. 13:45 Reassessment: Patient given GI cocktail, states that it hurts to swallow, but manages aj1 to get it down. A couple minutes later patient begins making gagging noises and vomits a small amount. Notified provider. 14:30 Reassessment: Patient given water for PO challenge, as soon as patient takes a sip of aj1 the water she begins making gagging noises again and then vomits a small amount. Provider notified. 14:45 Reassessment: Patient was given Toradol for pain, patient was offered Chester, but aj1 refuses at this time, states that she does not feel like she would be able to swallow it. 15:20 Reassessment: Patient states that she is not feeling any better and she does not feel aj1 like she would be able to swallow the Chester. Notified provider. 16:20 Reassessment: Patient appears in no apparent distress at this time. No changes from aj1 previously documented assessment. Patient and/or family updated on plan of care and expected duration. Pain level reassessed. Patient is alert, oriented x 3, equal unlabored respirations, skin warm/dry/pink. 17:23 Reassessment: Patient states that the fentanyl given brought her pain from a 10 down to aj1 a 8. Vital Signs: 12:53 BP 118 / 79; Pulse 107; Resp 16; Temp 97.3; Pulse Ox 98% on R/A; Weight 90.72 kg; hb Height 5 ft. 3 in. (160.02 cm); Pain 10/10; 14:45 BP 126 / 89; Pulse 91; Resp 20; Pulse Ox 99% on R/A; aj1 17:24 BP 127 / 90; Pulse 88; Resp 18; Pulse Ox 97% on R/A; aj1 12:53 Body Mass Index 35.43 (90.72 kg, 160.02 cm) hb ED Course: 12:45 Patient arrived in ED. as 12:46 Ashanti Leach DO is Private Physician. as 12:52 Triage completed. hb 12:53 [facility] kb 12:53 Rubens Amaya MD is Attending Physician. kb 12:53 Arm band placed on. hb 12:55 Kyra Mendez, RN is Primary Nurse. aj1 17:24 Patient has correct armband on for positive identification. Bed in low position. Call aj1 light in reach. Side rails up X 1. 17:24 No provider procedures requiring assistance completed. Patient did not have IV access aj1 during this emergency room visit. Administered Medications: 13:34 Drug: GI Cocktail without - (Maalox Suspension 30 ml, Lidocaine Liquid 2 % 15 aj1 ml) Route: PO; 17:22 Follow up: Response: No adverse reaction aj1 14:45 Drug: TORadol 30 mg Route: IM; Site: right deltoid; aj1 17:22 Follow up: Response: No adverse reaction aj1 15:46 Not Given (Patient Refused): Chester (7.5 mg-325 mg) 1 tabs PO once; RASS on ADMIN: kb Combtv4, Very Agttd3, Agttd2, Rstlss1, AlertClm0, Drwsy-1, Lt Sdtn-2, Mod Sdtn-3, Dp Sdtn-4, UnArsble-5 16:25 Drug: fentaNYL (PF) 50 mcg Route: IM; Site: left deltoid; aj1 17:22 Follow up: Response: No adverse reaction aj1 Outcome: 15:54 Discharge ordered by . kb 17:24 Discharged to home ambulatory. aj1 17:24 Condition: good 17:24 Discharge instructions given to patient, Instructed on discharge instructions, follow up and referral plans. Demonstrated understanding of instructions, follow-up care. 17:25 Patient left the ED. aj1 Signatures: Caty Diggs FNP-C FNP-Kyra Saldaña RN RN aj1 Samara Carpio Heather, RN RN Corrections: (The following items were deleted from the chart) 15:04 14:35 Reassessment: Patient was given Toradol for pain, patient was offered Chester, but aj1 refuses at this time, states that she does not feel like she would be able to swallow it aj1
--- NOTE | 2019-07-26 15:55 | EDPHYS ---
Physician Documentation [facility] Name: Italia Avendano Age: 44 yrs Sex: Female : 1975 Arrival Date: 07/26/2019 Time: 12:45 Bed 19 Private MD: Ashanti Leach H ED Physician Rubens Amaya HPI: 07/26 13:28 This 44 yrs old Black Female presents to ER via Ambulatory with complaints of Neck kb Pain, <24hrs Old, Sore Throat, Cough, Ear Pain. 13:31 The patient presents with sore throat. The patient describes throat pain as constant. kb Onset: The symptoms/episode began/occurred 1.5 week(s) ago. Severity of symptoms: At their worst the symptoms were moderate, in the emergency department the symptoms are unchanged. Modifying factors: The symptoms are alleviated by nothing, the symptoms are aggravated by swallowing, Patient's oral intake status: limited fluid intake, limited food intake, unaware of sick contact. Associated signs and symptoms: Pertinent positives: cough, Sore throat. The patient has not experienced similar symptoms in the past. The patient has not recently seen a physician. 13:[address] Watts for this before and was told her right lobe of her thyroid had kb grown to accommodate the removal of the left. . Historical: - Allergies: 12:53 PENICILLINS; hb 12:53 SHELLFISH; hb - Home Meds: 12:53 topiramate 50 mg Oral CSpX 1 cap once daily [Active]; hb - PMHx: 12:53 Hypertension; Thyroid problem; hb - PSHx: 12:53 Tubal ligation; partial thyroidectomy; hb - Immunization history:: Adult Immunizations up to date. - Social history:: Smoking status: Patient/guardian denies using tobacco. - Ebola Screening: : No symptoms or risks identified at this time. ROS: 13:26 Constitutional: Negative for fever, chills, and weight loss, Neck: Negative for injury, kb pain, and swelling, Cardiovascular: Negative for chest pain, palpitations, and edema, Abdomen/GI: Negative for abdominal pain, nausea, vomiting, diarrhea, and constipation, Back: Negative for injury and pain, MS/Extremity: Negative for injury and deformity, Skin: Negative for injury, rash, and discoloration, Neuro: Negative for headache, weakness, numbness, tingling, and seizure. 13:26 ENT: Positive for sore throat. 13:26 Respiratory: Positive for cough. Exam: 13:27 Constitutional: This is a well developed, well nourished patient who is awake, alert, kb and in no acute distress. Head/Face: Normocephalic, atraumatic. Neck: Trachea midline, no thyromegaly or masses palpated, and no cervical lymphadenopathy. Supple, full range of motion without nuchal rigidity, or vertebral point tenderness. No Meningismus. Chest/axilla: Normal chest wall appearance and motion. Nontender with no deformity. No lesions are appreciated. Cardiovascular: Regular rate and rhythm with a normal S1 and S2. No gallops, murmurs, or rubs. Normal PMI, no JVD. No pulse deficits. Respiratory: Lungs have equal breath sounds bilaterally, clear to auscultation and percussion. No rales, rhonchi or wheezes noted. No increased work of breathing, no retractions or nasal flaring. Abdomen/GI: Soft, non-tender, with normal bowel sounds. No distension or tympany. No guarding or rebound. No evidence of tenderness throughout. Back: No spinal tenderness. No costovertebral tenderness. Full range of motion. Skin: Warm, dry with normal turgor. Normal color with no rashes, no lesions, and no evidence of cellulitis. MS/ Extremity: Pulses equal, no cyanosis. Neurovascular intact. Full, normal range of motion. Neuro: Awake and alert, GCS 15, oriented to person, place, time, and situation. Cranial nerves II-XII grossly intact. Motor strength 5/5 in all extremities. Sensory grossly intact. Cerebellar exam normal. Normal gait. 13:27 ENT: External ear(s): are unremarkable, Ear canal(s): are normal, TM's: are normal, no evidence of bulging, Nose: is normal, Mouth: is normal, Posterior pharynx: Airway: normal, no evidence of obstruction, Tonsils: bilaterally enlarged, with erythema, Uvula: normal, midline, swelling, that is mild, erythema, that is mild, exudate, is not appreciated. Vital Signs: 12:53 BP 118 / 79; Pulse 107; Resp 16; Temp 97.3; Pulse Ox 98% on R/A; Weight 90.72 kg; hb Height 5 ft. 3 in. (160.02 cm); Pain 10/10; 14:45 BP 126 / 89; Pulse 91; Resp 20; Pulse Ox 99% on R/A; aj1 17:24 BP 127 / 90; Pulse 88; Resp 18; Pulse Ox 97% on R/A; aj1 12:53 Body Mass Index 35.43 (90.72 kg, 160.02 cm) hb MDM: 12:54 Patient medically screened. kb 13:28 Data reviewed: vital signs, nurses notes. Data interpreted: Pulse oximetry: on room air kb is 98 %. Interpretation: normal. 14:34 ED course: Pt has appt with Dr Watts on 08/01/19 for evaluation of this complaint. kb Educated to keep appt for further evaluation. 15:49 Counseling: I had a detailed discussion with the patient and/or guardian regarding: the kb historical points, exam findings, and any diagnostic results supporting the discharge/admit diagnosis, the need for outpatient follow up, an ENT specialist, to return to the emergency department if symptoms worsen or persist or if there are any questions or concerns that arise at home. ED course: Pt reports urinating within normal limits. Has appt scheduled with Dr Watts and will call tomorrow to see if there is an opening sooner. O2 is 100%. Pt is in no obvious distress. Educated to return for worsening symptoms, shortness of breath or any other concerns.. 07/26 12:54 Order name: Flu; Complete Time: 14:09 kb 07/26 12:54 Order name: Strep; Complete Time: 14:04 kb 07/26 14:02 Order name: Throat Culture EDHI 07/26 14:08 Order name: PO challenge; Complete Time: 14:32 kb Administered Medications: 13:34 Drug: GI Cocktail without - (Maalox Suspension 30 ml, Lidocaine Liquid 2 % 15 aj1 ml) Route: PO; 17:22 Follow up: Response: No adverse reaction aj1 14:45 Drug: TORadol 30 mg Route: IM; Site: right deltoid; aj1 17:22 Follow up: Response: No adverse reaction aj1 15:46 Not Given (Patient Refused): Daggett (7.5 mg-325 mg) 1 tabs PO once; RASS on ADMIN: kb Combtv4, Very Agttd3, Agttd2, Rstlss1, AlertClm0, Drwsy-1, Lt Sdtn-2, Mod Sdtn-3, Dp Sdtn-4, UnArsble-5 16:25 Drug: fentaNYL (PF) 50 mcg Route: IM; Site: left deltoid; aj1 17:22 Follow up: Response: No adverse reaction aj1 Disposition: 07/27 06:50 Co-signature as Attending Physician, Rubens Amaya MD I agree with the assessment and kdr plan of care. Disposition: 07/26/19 15:54 Discharged to Home. Impression: Pain in throat. - Condition is Stable. - Discharge Instructions: Sore Throat, [id number]. - Medication Reconciliation Form, Thank You Letter, Antibiotic Education, Prescription Opioid Use form. - Follow up: Emergency Department; When: As needed; Reason: Worsening of condition. Follow up: Private Physician; When: 2 - 3 days; Reason: Recheck today's complaints, Continuance of care, Re-evaluation by your physician. Signatures: Dispatcher [employer] EDCaty Wick, SUPERVISOR FRAME ASSEMBLY-C SUPERVISOR FRAME ASSEMBLY-Kyra Saldaña RN RN aj1 Rubens Amaya MD MD [facility] Sudha Antonio RN RN Corrections: (The following items were deleted from the chart) 07/26 13:28 13:28 Counseling: I had a detailed discussion with the patient and/or guardian regarding: the historical points, exam findings, and any diagnostic results supporting the discharge/admit diagnosis, lab results, the need for outpatient follow up, a family practitioner, to return to the emergency department if symptoms worsen or persist or if there are any questions or concerns that arise at home, 14:35 13:28 Counseling: I had a detailed discussion with the patient and/or guardian regarding: the historical points, exam findings, and any diagnostic results supporting the discharge/admit diagnosis, lab results, the need for outpatient follow up, an ENT specialist, to return to the emergency department if symptoms worsen or persist or if there are any questions or concerns that arise at home, 17:25 15:54 07/26/2019 15:54 Discharged to Home. Impression: Pain in throat. Condition is aj1 Stable. Forms are Medication Reconciliation Form, Thank You Letter, Antibiotic Education, Prescription Opioid Use. Follow up: Emergency Department; When: As needed; Reason: Worsening of condition. Follow up: Private Physician; When: 2 - 3 days; Reason: Recheck today's complaints, Continuance of care, Re-evaluation by your physician. kb
[2019-07-26 18:26] VITALS: TEMP 97.3
[2019-07-26 18:29] VITALS: BP 127/90; O2SAT 97
== END 2019-07-26 17:25 | disposition home or self-care (01) ==
LOC: ER 12:43
DX: R07.0 Pain in throat (principal); I10 Essential (primary) hypertension; E07.9 Disorder of thyroid, unspecified; Z88.0 Allergy status to penicillin; Z91.013 Allergy to seafood
CPT/HCPCS: 87070; 87081; 87804 ×2; 96372; 99283; J3010

== ENCOUNTER 2019-12-12 09:24 | Emergency (ER) | payer OTHER ==
--- NOTE | 2019-12-12 11:41 | RAD REPORT ---
EXAM DESCRIPTION: MRI - Lumbar Spine Wo Con - 12/12/2019 11:28 am CLINICAL HISTORY: Leg radiculopathy/weakness and back pain COMPARISON: 2013 TECHNIQUE: Sagittal T1, T2 and STIR weighted sequences were obtained. Axial T1 and T2 sequences were obtained through the lumbar disc levels. FINDINGS: Minimal spondylosis involves the lumbar spine. No central spinal stenosis. No foraminal stenosis. No abnormal signal within the bones A disc herniation is not present IMPRESSION: Minimal spondylosis involves the lumbar spine
[2019-12-12] MEDS ORDERED: METHYLPREDNISOLONE 125 MG INJ ONE (12:28)
[2019-12-12] MEDS ORDERED: KETOROLAC 30 MG/ML INJ ONE (12:29)
--- NOTE | 2019-12-12 12:40 | ER ---
Nurse's Notes [facility] Name: Italia Avendano Age: 44 yrs Sex: Female : 1975 Arrival Date: 12/12/2019 Time: 09:28 Bed 20 Private MD: Diagnosis: Right Neck Pain, Low back pain Presentation: 12/11 09:38 Acuity: BARRY 4 dm5 09:38 Chief complaint: Patient states: back and neck pain x 2 years, weakness in legs this dm5 morning. Coronavirus screen: The patient has NOT traveled to a country currently being monitored by the [facility] within the last 14 days. The patient has NOT had contact with any known and/or suspected case of coronavirus. Proceed with normal triage procedures. Ebola Screen: Patient negative for fever greater than or equal to 101.5 degrees Fahrenheit, and additional compatible Ebola Virus Disease symptoms Patient denies exposure to infectious person. Patient denies travel to an Ebola-affected area in the 21 days before illness onset. No symptoms or risks identified at this time. Initial Sepsis Screen:. Risk Assessment: Do you want to hurt yourself or someone else? Patient reports no desire to harm self or others. 09:38 Method Of Arrival: Ambulatory dm5 09:46 Note has appointment with Dr. Leach tomorrow. dm5 12:00 Initial Sepsis Screen: Does the patient meet any 2 criteria? No. Patient's initial vc sepsis screen is negative. Does the patient have a suspected source of infection? No. Patient's initial sepsis screen is negative. Triage Assessment: 12:00 General: Appears in no apparent distress. uncomfortable, Behavior is calm, cooperative, vc appropriate for age. Pain: Complains of pain in low back area. Musculoskeletal: Circulation, motion, and sensation intact. Range of motion: intact in all extremities. Historical: - Allergies: 12:00 PENICILLINS; vc 12:00 SHELLFISH; vc - Home Meds: 12:00 topiramate 50 mg Oral CSpX 1 cap once daily [Active]; vc - PMHx: 12:00 Hypertension; Thyroid problem; vc - Immunization history:: Adult Immunizations up to date. - Social history:: Smoking status: Patient denies any tobacco usage or history of. Screenin:00 Abuse screen: Denies threats or abuse. Nutritional screening: No deficits noted. vc Tuberculosis screening: No symptoms or risk factors identified. Fall Risk None identified. Assessment: 12:00 Neuro: Level of Consciousness is awake, alert, obeys commands. vc 12:00 General: Appears in no apparent distress. uncomfortable, Behavior is calm, cooperative, vc appropriate for age. Pain: Complains of pain in low back area. Cardiovascular: Capillary refill < 3 seconds Patient's skin is warm and dry. Respiratory: Respiratory effort is even, unlabored, Respiratory pattern is regular, symmetrical. GI: No signs and/or symptoms were reported involving the gastrointestinal system. : No signs and/or symptoms were reported regarding the genitourinary system. EENT: No signs and/or symptoms were reported regarding the EENT system. Derm: Skin temperature is warm. Musculoskeletal: Circulation, motion, and sensation intact. Range of motion: intact in all extremities, Reports pain in low back area. 13:00 Reassessment: Patient and/or family updated on plan of care and expected duration. Pain vc level reassessed. Patient states symptoms have not improved. Vital Signs: 10:02 BP 122 / 89; Pulse 96; Resp 18; Pulse Ox 100% ; Pain 9/10; ms 12:45 BP 108 / 61; Pulse 80; Resp 18; Temp 98.3(O); Pulse Ox 100% on R/A; vc ED Course: 09:28 Patient arrived in ED. fj1 09:34 Martha Rubalcava, RN is Primary Nurse. dm5 09:38 Triage completed. dm5 09:52 Rubens Amaya MD is Attending Physician. kdr 11:06 Patient moved to MRI via wheelchair. em2 12:00 Arm band placed on. vc 13:00 No provider procedures requiring assistance completed. IV discontinued, intact, vc bleeding controlled, No redness/swelling at site. Pressure dressing applied. Administered Medications: 13:06 Drug: SOLU-Medrol 125 mg Route: IVP; Site: left antecubital; vc 13:10 Follow up: Response: No adverse reaction vc 13:07 Drug: TORadol - Ketorolac 15 mg Route: IVP; Site: left antecubital; vc 13:10 Follow up: Response: No adverse reaction vc 13:08 Drug: traMADol 50 mg Route: PO; vc 13:10 Follow up: Response: No adverse reaction; Medication administered at discharge. vc Outcome: 12:39 Discharge ordered by . kdr 13:10 Patient left the ED. vc 13:10 Discharged to home ambulatory, with family. vc 13:10 Condition: good 13:10 Discharge instructions given to patient, Instructed on discharge instructions, follow up and referral plans. medication usage, Demonstrated understanding of instructions, follow-up care, medications, Prescriptions given X 1. Signatures: Martha Rubalcava, DESHAWN RN dm5 Rubens Amaya MD MD kdr Villarreal, Maria ms Montes, Enrique em2 Juany Dubon RN RN vc James, Frank fj1
--- NOTE | 2019-12-12 12:41 | EDPHYS ---
Physician Documentation [facility] Name: Italia Avendano Age: 44 yrs Sex: Female : 1975 Arrival Date: 12/12/2019 Time: 09:28 Bed 20 Private MD: ED Physician Rubens Amaya HPI: 12/11 11:55 This 44 yrs old Black Female presents to ER via Ambulatory with complaints of Back kdr Pain, Neck Pain, >24Hrs Old. 11:55 The patient c/o intermittent but progressively worsening pain, weakness and tingling kdr that is in her neck and lower back and that radiates into her legs. This has waxed and waned over the last two years but seems to be getting worse. She has had prior CT's that were negative for any acute significant pathology. Onset: The symptoms/episode began/occurred gradually, 2 year(s) ago. Severity of symptoms: At their worst the symptoms were mild moderate in the emergency department the symptoms are unchanged. The patient has experienced similar episodes in the past, multiple times, but today's symptoms are worse, more painful. Historical: - Allergies: 12:00 PENICILLINS; vc 12:00 SHELLFISH; vc - Home Meds: 12:00 topiramate 50 mg Oral CSpX 1 cap once daily [Active]; vc - PMHx: 12:00 Hypertension; Thyroid problem; vc - Immunization history:: Adult Immunizations up to date. - Social history:: Smoking status: Patient denies any tobacco usage or history of. ROS: 11:55 Constitutional: Negative for fever, chills, and weight loss, Eyes: Negative for injury, kdr pain, redness, and discharge, ENT: Negative for injury, pain, and discharge, Neck: Negative for injury, and swelling - she had had pain to the right lateral aspect of her neck Cardiovascular: Negative for chest pain, palpitations, and edema, Respiratory: Negative for shortness of breath, cough, wheezing, and pleuritic chest pain, Abdomen/GI: Negative for abdominal pain, nausea, vomiting, diarrhea, and constipation, : Negative for injury, bleeding, discharge, and swelling, MS/Extremity: Negative for injury and deformity, Skin: Negative for injury, rash, and discoloration, Psych: Negative for depression, anxiety, suicide ideation, homicidal ideation, and hallucinations, Allergy/Immunology: Negative for hives, rash, and allergies, Endocrine: Negative for neck swelling, polydipsia, polyuria, polyphagia, and marked weight changes, Hematologic/Lymphatic: Negative for swollen nodes, abnormal bleeding, and unusual bruising. 11:55 Back: Positive for pain at rest, pain with movement, of the low back area. Exam: 11:55 Constitutional: This is a well developed, well nourished patient who is awake, alert, kdr and in no acute distress. Head/Face: Normocephalic, atraumatic. Eyes: Pupils equal round and reactive to light, extra-ocular motions intact. Lids and lashes normal. Conjunctiva and sclera are non-icteric and not injected. Cornea within normal limits. Periorbital areas with no swelling, redness, or edema. Chest/axilla: Normal chest wall appearance and motion. Nontender with no deformity. No lesions are appreciated. Cardiovascular: Regular rate and rhythm with a normal S1 and S2. No gallops, murmurs, or rubs. Normal PMI, no JVD. No pulse deficits. Respiratory: Lungs have equal breath sounds bilaterally, clear to auscultation and percussion. No rales, rhonchi or wheezes noted. No increased work of breathing, no retractions or nasal flaring. Abdomen/GI: Soft, non-tender, with normal bowel sounds. No distension or tympany. No guarding or rebound. No evidence of tenderness throughout. Skin: Warm, dry with normal turgor. Normal color with no rashes, no lesions, and no evidence of cellulitis. MS/ Extremity: Pulses equal, no cyanosis. Neurovascular intact. Full, normal range of motion. Neuro: Awake and alert, GCS 15, oriented to person, place, time, and situation. Cranial nerves II-XII grossly intact. Motor strength 5/5 in all extremities. Sensory grossly intact. Cerebellar exam normal. Normal gait. Psych: Awake, alert, with orientation to person, place and time. Behavior, mood, and affect are within normal limits. 11:55 Neck: External neck: tenderness, that is mild, Right lateral chest. Vital Signs: 10:02 BP 122 / 89; Pulse 96; Resp 18; Pulse Ox 100% ; Pain 9/10; ms 12:45 BP 108 / 61; Pulse 80; Resp 18; Temp 98.3(O); Pulse Ox 100% on R/A; vc MDM: 11:55 Data reviewed: vital signs, nurses notes, lab test result(s), radiologic studies. kdr Counseling: I had a detailed discussion with the patient and/or guardian regarding: the historical points, exam findings, and any diagnostic results supporting the discharge/admit diagnosis, lab results, radiology results. 12:39 Patient medically screened. kdr 12/11 10:46 Order name: MRI Lumbar Spine wo Con kdr Administered Medications: 13:06 Drug: SOLU-Medrol 125 mg Route: IVP; Site: left antecubital; vc 13:10 Follow up: Response: No adverse reaction vc 13:07 Drug: TORadol - Ketorolac 15 mg Route: IVP; Site: left antecubital; vc 13:10 Follow up: Response: No adverse reaction vc 13:08 Drug: traMADol 50 mg Route: PO; vc 13:10 Follow up: Response: No adverse reaction; Medication administered at discharge. vc Disposition: 12/12/19 12:39 Discharged to Home. Impression: Right Neck Pain, Low back pain. - Condition is Stable. - Discharge Instructions: Back Pain, Adult, [id number]. - Prescriptions for Tramadol 50 mg Oral Tablet - take 1 tablet by ORAL route every 8 hours as needed; 12 tablet. - Medication Reconciliation Form, Thank You Letter form. - Follow up: Private Physician; When: 2 - 3 days; Reason: If symptoms return, Further diagnostic work-up, Recheck today's complaints, Continuance of care, Re-evaluation by your physician. - Problem is an acute exacerbation. - Symptoms have improved. Signatures: Dispatcher [employer] EDMS Rubens Amaya MD MD kdr Juany Dubon RN RN vc Corrections: (The following items were deleted from the chart) 13:10 12:39 12/12/2019 12:39 Discharged to Home. Impression: Right Neck Pain, Low back pain. vc Condition is Stable. Forms are Medication Reconciliation Form, Thank You Letter, Antibiotic Education, Prescription Opioid Use. Follow up: Private Physician; When: 2 - 3 days; Reason: If symptoms return, Further diagnostic work-up, Recheck today's complaints, Continuance of care, Re-evaluation by your physician. Problem is an acute exacerbation. Symptoms have improved. kdr
[2019-12-12] MEDS ORDERED: TRAMADOL HCL 50 MG TAB ONE (13:02)
[2019-12-12 13:15] VITALS: BP 122/89; O2SAT 100
== END 2019-12-12 13:10 | disposition home or self-care (01) ==
LOC: ER 09:24
DX: M54.5 Low back pain (principal); M54.2 Cervicalgia; Z88.0 Allergy status to penicillin; Z91.013 Allergy to seafood
CPT/HCPCS: 72148; 96375; 96374; 99284; J2930

== ENCOUNTER 2020-05-05 06:28 | Emergency (ER) | payer OTHER ==
--- NOTE | 2020-05-05 08:22 | RAD REPORT ---
EXAM DESCRIPTION: RAD - Chest Single View - 05/05/2020 7:43 am CLINICAL HISTORY: COUGH, body aches, chest pain with coughing COMPARISON: November 2018 TECHNIQUE: AP portable chest image was obtained 05/05/2020 7:43 am . FINDINGS: Lung volumes are relatively low. No peripheral mass consolidation. No significant failure or volume overload. Low lung volumes to accentuate the interstitial pattern which could potentially m ask early interstitial edema or infiltrate. Trachea is midline. Heart and vasculature are normal. No measurable pleural effusion and no pneumothorax. No acute bony abnormality seen. No acute aortic find ings suspected. IMPRESSION: No focal mass or consolidation. Increased interstitial pattern may be the affects of shallow inspiration. Early edema or infiltrate c ould be masked.
[2020-05-05] MEDS ORDERED: ASPIRIN 81 MG CHEWABLE TABLET ONE (08:50)
[2020-05-05] MEDS ORDERED: FENTANYL CITR 100 MCG/2 ML ONE (08:51)
[2020-05-05] MEDS ORDERED: ZINC SULFATE 220 MG CAP PO ONE (09:00)
[2020-05-05] MEDS ORDERED: AZITHROMYCIN IV 500 MG in NA CHLORIDE 0.9% 250 ML IVPB ONE (09:00)
--- NOTE | 2020-05-05 09:51 | ER ---
Nurse's Notes [facility] Name: Italia Avendano Age: 45 yrs Sex: Female : 1975 Arrival Date: 05/05/2020 Time: 06:28 Bed 14 Private MD: Diagnosis: Bronchitis, not specified as acute or chronic Presentation: 05/05 06:44 Chief complaint: Patient states: I am not feeling good for couple of days now. I am rr5 having bodyache, congestion , colds, cough and my chest hurts when i cough. Coronavirus screen: Client denies travel out of the [place] in the last 14 days. congestion, cough unrelated to allergies, fatigue, headache, muscle pain, Client presents with at least one sign or symptom that may indicate coronavirus-19. Standard/surgical mask placed on the client. Provider contacted for isolation considerations. Ebola Screen: Patient negative for fever greater than or equal to 101.5 degrees Fahrenheit, and additional compatible Ebola Virus Disease symptoms Patient denies exposure to infectious person. Patient denies travel to an Ebola-affected area in the 21 days before illness onset. Initial Sepsis Screen: Does the patient meet any 2 criteria? HR > 90 bpm. Does the patient have a suspected source of infection? Yes: Productive cough/pneumonia. Risk Assessment: Do you want to hurt yourself or someone else? Patient reports no desire to harm self or others. Onset of symptoms was May 05, 2020. 06:44 Method Of Arrival: Ambulatory rr5 06:44 Acuity: BARRY 3 rr5 06:44 Note has been tested fro covid last 04/21/20 resulted negative. rr5 Triage Assessment: 06:50 General: Appears in no apparent distress. uncomfortable, Behavior is calm, cooperative, rr5 appropriate for age, Reports feeling ill for. Pain: Complains of pain in head chest body Pain currently is 9 out of 10 on a pain scale. Quality of pain is described as aching, Pain began gradually, Is intermittent. EENT: No signs and/or symptoms were reported regarding the EENT system. Neuro: Level of Consciousness is awake, alert, obeys commands, Oriented to person, place, time, situation. Cardiovascular: Capillary refill < 3 seconds Patient's skin is warm and dry. Respiratory: Reports cough that is Airway is patent Respiratory effort is even, unlabored, Respiratory pattern is regular, symmetrical. GI: No signs and/or symptoms were reported involving the gastrointestinal system. : No signs and/or symptoms were reported regarding the genitourinary system. Derm: Skin is intact, is healthy with good turgor, Skin temperature is warm. Musculoskeletal: Capillary refill < 3 seconds. Historical: - Allergies: 06:50 PENICILLINS; rr5 06:50 SHELLFISH; rr5 06:50 Iodinated Contrast Media - IV Dye; rr5 - Home Meds: 06:50 topiramate 50 mg Oral CSpX 1 cap once daily [Active]; Metoprolol Tartrate Oral [Active];rr5 - PMHx: 06:50 Hypertension; Thyroid problem; rr5 - PSHx: 06:50 Tubal ligation; rr5 - Immunization history:: Adult Immunizations up to date. - Social history:: Smoking status: unknown Patient uses alcohol, but reports only rare drinking. Patient/guardian denies using street drugs. Screenin:50 Abuse screen: Denies threats or abuse. Denies injuries from another. Nutritional rr5 screening: No deficits noted. Tuberculosis screening: No symptoms or risk factors identified. Fall Risk None identified. Total Zhou Fall Scale indicates No Risk (0-24 pts). Assessment: 08:00 General: Appears in no apparent distress. Behavior is calm, cooperative, appropriate jr10 for age. Pain: Complains of pain in generalized body aches and SALAZAR. Neuro: No deficits noted. Level of Consciousness is awake, alert, Oriented to person, place, time, situation, Appropriate for age. Cardiovascular: Reports chest pain, since Tuesday, worse with deep breathing and cough. Respiratory: No deficits noted. Reports shortness of breath on exertion cough that is non-productive, Airway is patent Respiratory effort is even, unlabored, Respiratory pattern is regular, symmetrical, Breath sounds are clear bilaterally. GI: Reports nausea, vomiting, since yesterday. : No deficits noted. EENT: No deficits noted. Derm: No deficits noted. Musculoskeletal: Reports weakness in generalized weakness in pilar legs. 11:00 Neuro: Level of Consciousness is awake, alert, obeys commands, Oriented to person, aa5 place, time, situation. Respiratory: Airway is patent Respiratory effort is even, unlabored, Respiratory pattern is regular, symmetrical. Derm: Skin is dry, Skin is normal, Skin temperature is warm. Vital Signs: 06:44 BP 124 / 77; Pulse 118; Resp 19; Temp 99.2; Pulse Ox 100% ; Weight 89.36 kg; Height 5 rr5 ft. 5 in. (165.10 cm); Pain 9/10; 07:15 BP 118 / 77; Pulse 107; Resp 20; Pulse Ox 100% on R/A; Pain 8/10; jr10 08:00 BP 105 / 71; Pulse 103; Resp 20; Pulse Ox 100% on R/A; jr10 09:00 BP 118 / 69; Pulse 97; Resp 18; Pulse Ox 100% ; Pain 5/10; jr10 10:20 BP 112 / 58; Pulse 101; Resp 18; Pulse Ox 100% on R/A; Pain 6/10; jr10 06:44 Body Mass Index 32.78 (89.36 kg, 165.10 cm) rr5 ED Course: 06:28 Patient arrived in ED. cl3 06:39 [facility]C [facility] snw 06:39 Miguelito Garcia MD is Attending Physician. snw 06:44 Caio Matthew RN is Primary Nurse. rr5 06:49 Triage completed. rr5 06:50 Arm band placed on right wrist. rr5 07:43 CXR XRAY In Process Unspecified. EDMS 08:00 Patient has correct armband on for positive identification. Bed in low position. Call jr10 light in reach. Side rails up X2. Pulse ox on. NIBP on. 11:00 No provider procedures requiring assistance completed. IV discontinued, intact, aa5 bleeding controlled, No redness/swelling at site. Pressure dressing applied. Administered Medications: 08:15 Drug: NS 0.9% 1000 ml Route: IV; Rate: 125 ml/hr; Site: right upper arm; snw 10:38 Follow up: Response: No adverse reaction; IV Status: Completed infusion jr10 09:03 Drug: Aspirin Chewable Tablet 324 mg Route: PO; jr10 10:37 Follow up: Response: No adverse reaction jr10 09:03 Drug: fentaNYL (PF) 50 mcg Route: IVP; Site: right antecubital; jr10 10:00 Follow up: Response: No adverse reaction; Pain is unchanged, physician notified jr10 09:57 Drug: Zinc Sulfate 220 mg Route: PO; jr10 10:37 Follow up: Response: No adverse reaction jr10 09:58 Drug: Zithromax 500 mg Route: IVPB; Infused Over: 1 hrs; Site: right antecubital; jr10 10:58 Follow up: Response: No adverse reaction; IV Status: Completed infusion aa5 10:30 Drug: Grimes (7.5 mg-325 mg) 1 tabs Route: PO; jr10 Outcome: 09:50 Discharge ordered by . snw 11:02 Discharged to home ambulatory. aa5 11:02 Condition: stable 11:02 Discharge instructions given to patient, Instructed on discharge instructions, follow up and referral plans. medication usage, Demonstrated understanding of instructions, follow-up care, medications, Prescriptions given X 5 11:03 Patient left the ED. aa5 Addendum: 05/06/2020 18:24 Addendum: COVID-19 Result: Positive result giiven to ED physician to notify pt. a a5 Physician: Jourdan Sanchez MD Physician was able to contact pt and pt was notified of positive COVID-19 swab result. Physician answered pt questions. Signatures: Dispatcher [employer] EDOR Yuli Barahona, REPAIRER WOOD FURNITURE-C REPAIRER WOOD FURNITURE-Csnw Elizabeth Carrion, RN RN aa5 Caio Matthew, RN RN elizabeth5 Donna Doty cl3 Josette Mendez, RN RN jr10
--- NOTE | 2020-05-05 09:51 | EDPHYS ---
Physician Documentation [facility] Name: Italia Avendano Age: 45 yrs Sex: Female : 1975 Arrival Date: 05/05/2020 Time: 06:28 Bed 14 Private MD: ED Physician Miguelito Garcia HPI: 05/05 08:32 This 45 yrs old Black Female presents to ER via Ambulatory with complaints of General snw Weakness, Cough. 08:32 The patient or guardian reports cough, flu symptoms, arthralgias, low-grade fever, snw myalgias, no appetite. Onset: The symptoms/episode began/occurred gradually, 3 day(s) ago, and became persistent. Modifying factors: The symptoms are alleviated by nothing. Severity of symptoms: At their worst the symptoms were moderate severe in the emergency department the symptoms are unchanged. The patient has not experienced similar symptoms in the past. The patient has not recently seen a physician. Historical: - Allergies: 06:50 PENICILLINS; rr5 06:50 SHELLFISH; rr5 06:50 Iodinated Contrast Media - IV Dye; rr5 - Home Meds: 06:50 topiramate 50 mg Oral CSpX 1 cap once daily [Active]; Metoprolol Tartrate Oral [Active];rr5 - PMHx: 06:50 Hypertension; Thyroid problem; rr5 - PSHx: 06:50 Tubal ligation; rr5 - Immunization history:: Adult Immunizations up to date. - Social history:: Smoking status: unknown Patient uses alcohol, but reports only rare drinking. Patient/guardian denies using street drugs. ROS: 07:55 Eyes: Negative for injury, pain, redness, and discharge, ENT: Negative for injury, snw pain, and discharge, Neck: Negative for injury, pain, and swelling, Cardiovascular: Negative for chest pain, palpitations, and edema. 07:55 Abdomen/GI: Negative for abdominal pain, nausea, vomiting, diarrhea, and constipation, Back: Negative for injury and pain, : Negative for injury, bleeding, discharge, and swelling, MS/Extremity: Negative for injury and deformity, Skin: Negative for injury, rash, and discoloration. 07:55 Constitutional: Positive for body aches, chills, fatigue, malaise, poor PO intake. 07:55 Respiratory: Positive for cough, pleurisy, of the anterior aspect of right upper chest, anterior aspect of left upper chest and mid-sternal area. 07:55 Neuro: Positive for headache, insomnia. Exam: 07:51 Constitutional: This is a well developed, well nourished patient who is awake, alert, snw and in no acute distress. Head/Face: Normocephalic, atraumatic. Eyes: Pupils equal round and reactive to light, extra-ocular motions intact. Lids and lashes normal. Conjunctiva and sclera are non-icteric and not injected. Cornea within normal limits. Periorbital areas with no swelling, redness, or edema. ENT: Nares patent. No nasal discharge, no septal abnormalities noted. Tympanic membranes are normal and external auditory canals are clear. Oropharynx with no redness, swelling, or masses, exudates, or evidence of obstruction, uvula midline. Mucous membranes moist. Neck: Trachea midline, no thyromegaly or masses palpated, and no cervical lymphadenopathy. Supple, full range of motion without nuchal rigidity, or vertebral point tenderness. No Meningismus. Chest/axilla: Normal chest wall appearance and motion. Nontender with no deformity. No lesions are appreciated. 07:51 Abdomen/GI: Soft, non-tender, with normal bowel sounds. No distension or tympany. No guarding or rebound. No evidence of tenderness throughout. Back: No spinal tenderness. No costovertebral tenderness. Full range of motion. Skin: Warm, dry with normal turgor. Normal color with no rashes, no lesions, and no evidence of cellulitis. MS/ Extremity: Pulses equal, no cyanosis. Neurovascular intact. Full, normal range of motion. Neuro: Awake and alert, GCS 15, oriented to person, place, time, and situation. Cranial nerves II-XII grossly intact. Motor strength 5/5 in all extremities. Sensory grossly intact. Cerebellar exam normal. Normal gait. Psych: Awake, alert, with orientation to person, place and time. Behavior, mood, and affect are within normal limits. 07:51 Cardiovascular: Rate: tachycardic, Rhythm: regular, Pulses: no pulse deficits are appreciated, Edema: is not appreciated. 07:51 Respiratory: the patient does not display signs of respiratory distress, Respirations: shallow respirations, tachypnea, that is moderate, Breath sounds: decreased breath sounds, that are mild, that are moderate. Vital Signs: 06:44 BP 124 / 77; Pulse 118; Resp 19; Temp 99.2; Pulse Ox 100% ; Weight 89.36 kg; Height 5 rr5 ft. 5 in. (165.10 cm); Pain 9/10; 07:15 BP 118 / 77; Pulse 107; Resp 20; Pulse Ox 100% on R/A; Pain 8/10; jr10 08:00 BP 105 / 71; Pulse 103; Resp 20; Pulse Ox 100% on R/A; jr10 09:00 BP 118 / 69; Pulse 97; Resp 18; Pulse Ox 100% ; Pain 5/10; jr10 10:20 BP 112 / 58; Pulse 101; Resp 18; Pulse Ox 100% on R/A; Pain 6/10; jr10 06:44 Body Mass Index 32.78 (89.36 kg, 165.10 cm) rr5 MDM: 06:39 Patient medically screened. snw 10:06 Data reviewed: vital signs, nurses notes. Data interpreted: Pulse oximetry: on room air snw is 100 %. Interpretation: normal. Counseling: I had a detailed discussion with the patient and/or guardian regarding: the historical points, exam findings, and any diagnostic results supporting the discharge/admit diagnosis, lab results, radiology results, the need for outpatient follow up, to return to the emergency department if symptoms worsen or persist or if there are any questions or concerns that arise at home. Special discussion: Based on the history and exam findings, there is no indication for further emergent testing or inpatient evaluation. I discussed with the patient/guardian the need to see the primary care provider for further evaluation of the symptoms. 05/05 07:09 Order name: COVID-19 snw 05/05 07:09 Order name: Flu; Complete Time: 09:44 snw 05/05 07:09 Order name: CXR XRAY; Complete Time: 08:30 snw 05/05 07:09 Order name: Strep; Complete Time: 09:44 snw 05/05 09:42 Order name: Throat Culture EDMS 05/05 07:09 Order name: O2 Per Protocol; Complete Time: 07:13 snw 05/05 08:32 Order name: Misc. Order: increase IVF rate to bolus x 1 L; Complete Time: 08:32 snw Administered Medications: 08:15 Drug: NS 0.9% 1000 ml Route: IV; Rate: 125 ml/hr; Site: right upper arm; snw 10:38 Follow up: Response: No adverse reaction; IV Status: Completed infusion jr10 09:03 Drug: Aspirin Chewable Tablet 324 mg Route: PO; jr10 10:37 Follow up: Response: No adverse reaction jr10 09:03 Drug: fentaNYL (PF) 50 mcg Route: IVP; Site: right antecubital; jr10 10:00 Follow up: Response: No adverse reaction; Pain is unchanged, physician notified jr10 09:57 Drug: Zinc Sulfate 220 mg Route: PO; jr10 10:37 Follow up: Response: No adverse reaction jr10 09:58 Drug: Zithromax 500 mg Route: IVPB; Infused Over: 1 hrs; Site: right antecubital; jr10 10:58 Follow up: Response: No adverse reaction; IV Status: Completed infusion aa5 10:30 Drug: Marianna (7.5 mg-325 mg) 1 tabs Route: PO; jr10 Disposition: 05/05/20 09:50 Discharged to Home. Impression: Bronchitis, not specified as acute or chronic. - Condition is Stable. - Discharge Instructions: Acute Bronchitis, Adult, Fever, Adult, Cough, Adult, COVID-19. - Prescriptions for zinc lozenges - take 10 milligram by ORAL route once daily; 30 lozenge. Pepcid 20 mg Oral Tablet - take 1 tablet by ORAL route every 12 hours for 5 days; 10 tablet. Vitamin 27- 0.8 mg Oral Tablet - take 1 tablet by ORAL route once daily; 30 tablet. Zithromax 500 mg Oral Tablet - take 1 tablet by ORAL route once daily for 5 days; 5 tablet. melatonin - take 10 milligram by ORAL route once daily; 30 milligram. - Work release form, Medication Reconciliation Form, Thank You Letter, Antibiotic Education, Prescription Opioid Use form. - Follow up: Emergency Department; When: As needed; Reason: Worsening of condition. Follow up: Private Physician; When: 1 week; Reason: Recheck today's complaints, Continuance of care, Re-evaluation by your physician. - Notes: Take 1 baby aspirin daily with small amount of seltzer water. Quarantine x 10 days. Signatures: Dispatcher [employer] EDMS Laina Culver bd Yuli Barahona, ANESTHESIA ATTENDING-C ANESTHESIA ATTENDING-Csnw Elizabeth Carrion, RN RN aa5 Caio Matthew, RN RN rr5 Josette Mendez, RN RN jr10 Corrections: (The following items were deleted from the chart) 09:50 08:41 Labs - recollect needed ordered. bd snw 11:03 09:50 05/05/2020 09:50 Discharged to Home. Impression: Bronchitis, not specified as aa5 acute or chronic. Condition is Stable. Forms are Medication Reconciliation Form, Thank You Letter, Antibiotic Education, Prescription Opioid Use. Follow up: Emergency Department; When: As needed; Reason: Worsening of condition. Follow up: Private Physician; When: 1 week; Reason: Recheck today's complaints, Continuance of care, Re-evaluation by your physician. snw
[2020-05-05] MEDS ORDERED: HYDROCODONE/APAP 7.5/325 MG TAB ONE (10:35)
[2020-05-05 11:08] VITALS: TEMP 99.2; O2SAT 100
[2020-05-05 11:14] VITALS: BP 112/58
== END 2020-05-05 11:03 | disposition home or self-care (01) ==
LOC: ER 06:28
DX: U07.1 COVID-19 (principal); J40 Bronchitis, not specified as acute or chronic; I10 Essential (primary) hypertension; E07.9 Disorder of thyroid, unspecified; Z88.0 Allergy status to penicillin; Z91.013 Allergy to seafood; Z91.041 Radiographic dye allergy status
CPT/HCPCS: 87070; 87081; 87804 ×2; 71045; U0002; J0456; J3010; J7050; 96361; 96365; 96375; 99284

== ENCOUNTER 2020-09-14 13:25 | Emergency (ER) | payer OTHER ==
[2020-09-14] MEDS ORDERED: DIAZEPAM 5 MG TABLET ONE (14:10)
[2020-09-14] MEDS ORDERED: KETOROLAC 30 MG/ML INJ ONE (14:10)
--- NOTE | 2020-09-14 14:55 | ER ---
Nurse's Notes [facility] Name: Italia Avendano Age: 45 yrs Sex: Female : 1975 Arrival Date: 09/14/2020 Time: 13:30 Bed 5 Private MD: Diagnosis: Strain of unspecified muscle, fascia and tendon at shoulder and upper arm level, left arm Presentation: 09/14 13:30 Chief complaint: Patient states: "I was helping my daughter move a dresser and one of aa5 her hands slid off the dresser and she lost pie filler of it and the dresser ended up pulling my left arm coming down". Pt c/o pain to left arm. 13:30 Acuity: BARRY 3 aa5 13:30 Method Of Arrival: Ambulatory aa5 13:30 Coronavirus screen: Client denies travel out of the [place] in the last 14 days. At this aa5 time, the client does not indicate any symptoms associated with coronavirus-19. Ebola Screen: Patient negative for fever greater than or equal to 101.5 degrees Fahrenheit, and additional compatible Ebola Virus Disease symptoms. Initial Sepsis Screen: Does the patient meet any 2 criteria? No. Patient's initial sepsis screen is negative. Does the patient have a suspected source of infection? No. Patient's initial sepsis screen is negative. Risk Assessment: Do you want to hurt yourself or someone else? Patient reports no desire to harm self or others. Onset of symptoms was September 12, 2020. Historical: - Allergies: 13:45 Iodinated Contrast Media - IV Dye; aa5 13:45 PENICILLINS; aa5 13:45 SHELLFISH; aa5 - PMHx: 13:45 Hypertension; Thyroid problem; aa5 - PSHx: 13:45 Tubal ligation; aa5 - Immunization history:: Adult Immunizations unknown. - Social history:: Smoking status: Patient denies any tobacco usage or history of. Screenin:41 Abuse screen: Denies threats or abuse. Denies injuries from another. Nutritional iw screening: No deficits noted. Tuberculosis screening: No symptoms or risk factors identified. Fall Risk None identified. Assessment: 14:00 General: Appears in no apparent distress. Behavior is calm, cooperative. Pain: iw Complains of pain in left antecubital area and left bicep and anterior aspect of left shoulder Pain currently is 10 out of 10 on a pain scale. Neuro: Level of Consciousness is awake, alert, obeys commands, Oriented to person, place, time, situation, Moves all extremities. Full function. Cardiovascular: Patient's skin is warm and dry. Respiratory: Respiratory effort is even, unlabored, Respiratory pattern is regular, symmetrical. Derm: Skin is intact, is healthy with good turgor. Musculoskeletal: Range of motion: intact in all extremities, Reports pain in left antecubital area and left bicep and anterior aspect of left shoulder. Vital Signs: 13:30 BP 122 / 92; Pulse 79; Resp 16 S; Temp 97.1(TE); Pulse Ox 96% on R/A; Weight 86.18 kg aa5 (R); Height 5 ft. 2 in. (157.48 cm) (R); Pain 10/10; 13:30 Body Mass Index 34.75 (86.18 kg, 157.48 cm) aa5 ED Course: 13:30 Patient arrived in ED. bp1 13:30 Dave Blanco NP is PHCP. pm1 13:30 Arm band placed on Patient placed in an exam room, on a stretcher. aa5 13:30 Patient has correct armband on for positive identification. Bed in low position. Call jl7 light in reach. Side rails up X 1. Pulse ox on. NIBP on. 13:31 Jourdan Sanchez MD is Attending Physician. pm1 13:45 Triage completed. aa5 14:22 Elbow Left 3 View XRAY In Process Unspecified. EDMS 14:22 Shoulder Left (2 View) XRAY In Process Unspecified. EDMS 14:27 Jaqui Khanna, RN is Primary Nurse. iw 15:10 No provider procedures requiring assistance completed. Patient did not have IV access jl7 during this emergency room visit. Administered Medications: 14:28 Drug: TORadol 30 mg Route: IM; Site: left deltoid; iw 14:29 Drug: Valium 5 mg Route: PO; iw Outcome: 14:55 Discharge ordered by . pm1 15:10 Discharged to home ambulatory. jl7 15:10 Condition: stable 15:10 Discharge instructions given to patient, Instructed on discharge instructions, follow up and referral plans. medication usage, Demonstrated understanding of instructions, follow-up care, medications, Prescriptions given X 2. 15:10 Patient left the ED. jl7 Signatures: Dispatcher [employer] EDJaqui Michael RN RN iw Elizabeth Carrion RN RN aa5 Dave Blanco, DESPATCH CLERK DESPATCH CLERK pm1 Jimmy Jeter RN RN jl7 Darleen España [facility] Corrections: (The following items were deleted from the chart) 13:47 13:30 Chief complaint: Patient states: "I was helping my daughter move a dresser and aa5 one of her hand slid off and ended up pulling my left arm coming down". Pt c/o pain to left arm. aa5
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
--- NOTE | 2020-09-14 15:14 | RAD REPORT ---
EXAM DESCRIPTION: RAD - Shoulder Left 2 View - 09/14/2020 2:21 pm CLINICAL HISTORY: PAINtrauma, lifting injury COMPARISON: No comparisons TECHNIQUE: Internal and external rotation views of the left shoulder were obtained. FINDINGS: There is no fracture or dislocation. AC joint is normal in appearance. No acute or suspici ous findings. IMPRESSION: Negative two-view left shoulder examination for acute findings.
--- NOTE | 2020-09-14 15:14 | RAD REPORT ---
EXAM DESCRIPTION: RAD - Elbow Left 3 View - 09/14/2020 2:21 pm CLINICAL HISTORY: PAIN, trauma to the elbow COMPARISON: None. FINDINGS: No fracture is identified and no elevated posterior fat pad. There is no dislocation or pe riosteal reaction noted. No foreign body or other soft tissue abnormality. IMPRESSION: Negative left elbow examination.
[2020-09-18 01:28] VITALS: BP 122/92; TEMP 97.1; O2SAT 96
== END 2020-09-14 15:10 | disposition home or self-care (01) ==
LOC: ER 13:25
DX: S46.912A Strain of unspecified muscle, fascia and tendon at shoulder and upper arm level, left arm, initial encounter (principal); X50.0XXA Overexertion from strenuous movement or load, initial encounter; Y93.89 Activity, other specified; Y92.009 Unspecified place in unspecified non-institutional (private) residence as the place of occurrence of the external cause; I10 Essential (primary) hypertension; Z88.0 Allergy status to penicillin; Z91.013 Allergy to seafood; Z91.041 Radiographic dye allergy status
CPT/HCPCS: 96372; 99284

== ENCOUNTER 2021-01-23 10:05 | Emergency (ER) | payer OTHER ==
--- NOTE | 2021-01-23 12:52 | EDPHYS ---
Physician Documentation [facility] Name: Italia Avendano Age: 45 yrs Sex: Female : 1975 Arrival Date: 01/23/2021 Time: 10:09 Bed 23 Private MD: Ashanti Leach H ED Physician Jourdan Sanchez HPI: 01/23 12:47 This 45 yrs old Black Female presents to ER via Ambulatory with complaints of Knee jr8 Pain, Foot Pain. 12:47 Patient stated that she started and has continued with knee pain for past few days. Now jr8 having dorsal anterior ankle/foot pain. Denies injury but does climb and work on legs a lot . Severity of symptoms: At their worst the symptoms were moderate in the emergency department the symptoms are unchanged. The patient has not experienced similar symptoms in the past. The patient has not recently seen a physician. Historical: - Allergies: 10:26 Iodinated Contrast Media - IV Dye; ss 10:26 PENICILLINS; ss 10:26 SHELLFISH; ss - Home Meds: 10:26 Metoprolol Tartrate Oral [Active]; topiramate 50 mg Oral CSpX 1 cap once daily [Active];ss - PMHx: 10:26 Hypertension; Thyroid problem; ss - PSHx: 10:26 Tubal ligation; ss - Immunization history:: Adult Immunizations up to date. - Social history:: Smoking status: Patient denies any tobacco usage or history of. ROS: 12:47 Eyes: Negative for injury, pain, redness, and discharge, ENT: Negative for injury, jr8 pain, and discharge, Neck: Negative for injury, pain, and swelling, Cardiovascular: Negative for chest pain, palpitations, and edema, Respiratory: Negative for shortness of breath, cough, wheezing, and pleuritic chest pain, Abdomen/GI: Negative for abdominal pain, nausea, vomiting, diarrhea, and constipation, Back: Negative for injury and pain, Skin: Negative for injury, rash, and discoloration, Neuro: Negative for headache, weakness, numbness, tingling, and seizure. 12:47 MS/extremity: Positive for pain, swelling, tenderness, of the left foot and left leg. Exam: 12:47 Constitutional: This is a well developed, well nourished patient who is awake, alert, jr8 and in no acute distress. Cardiovascular: Regular rate and rhythm with a normal S1 and S2. No gallops, murmurs, or rubs. Normal PMI, no JVD. No pulse deficits. Respiratory: Lungs have equal breath sounds bilaterally, clear to auscultation and percussion. No rales, rhonchi or wheezes noted. No increased work of breathing, no retractions or nasal flaring. Skin: Warm, dry with normal turgor. Normal color with no rashes, no lesions, and no evidence of cellulitis. Neuro: Awake and alert, GCS 15, oriented to person, place, time, and situation. Cranial nerves II-XII grossly intact. Motor strength 5/5 in all extremities. Sensory grossly intact. Cerebellar exam normal. Normal gait. 12:47 Musculoskeletal/extremity: Extremities: Patient has mild swelling noted to suprapatellar region with pain to palpation left side. No warmth or redness noted. Pain noted with passive and active ROM but no limitation on ROM. Pulses 2+ bilaterally with normal sensation. Mild tenderness also noted to left anterior ankle without swelling or decreased ROM. Pain with dorsiflexion only. Vital Signs: 10:23 BP 125 / 79; Pulse 77; Resp 16; Temp 97.1; Pulse Ox 100% on R/A; Pain 10/10; ss Procedures: 12:47 Splinting: Splint applied to left knee. jr8 MDM: 12:05 Patient medically screened. jr8 12:47 Differential Diagnosis septic arthritis, osteoarthritis, rheumatologic, cellulitis, jr8 roe cyst, sprain, strain . Data reviewed: vital signs, nurses notes, and as a result, I will discharge patient. Data interpreted: Pulse oximetry: on room air is 100 %. Interpretation: normal. Counseling: I had a detailed discussion with the patient and/or guardian regarding: the historical points, exam findings, and any diagnostic results supporting the discharge/admit diagnosis, the need for outpatient follow up, a orthopedic surgeon, to return to the emergency department if symptoms worsen or persist or if there are any questions or concerns that arise at home. 01/23 12:34 Order name: Shin Wrap; Complete Time: 12:51 jr8 Administered Medications: No medications were administered Disposition: 01/23/21 12:52 Discharged to Home. Impression: Effusion, left knee, Pain in left knee, Pain in left ankle and joints of left foot. - Condition is Stable. - Discharge Instructions: Joint Pain, Arthritis, Knee Effusion, Knee Pain. - Prescriptions for meloxicam 15 mg Oral tablet - take 1 tablet by ORAL route once daily As needed; 12 tablet. - Medication Reconciliation Form, Thank You Letter, Antibiotic Education, Prescription Opioid Use form. - Follow up: Santos Rogers MD; When: 7 - 10 days; Reason: If symptoms return, Recheck today's complaints, Continuance of care, Re-evaluation by your physician. - Problem is new. - Symptoms are unchanged. Addendum: 01/25/2021 08:07 Co-signature as Attending Physician, Jourdan Sanchez MD I agree with the assessment and c yang plan of care. Signatures: Jourdan Sanchez MD MD cha Smirch, Shelby, RN RN Rafael Steward PA PA jr8 Sudha Antonio RN RN Corrections: (The following items were deleted from the chart) 01/23 13:04 12:52 01/23/2021 12:52 Discharged to Home. Impression: Effusion, left knee; Pain in hb left knee; Pain in left ankle and joints of left foot. Condition is Stable. Forms are Medication Reconciliation Form, Thank You Letter, Antibiotic Education, Prescription Opioid Use. Follow up: Santos Rogers; When: 7 - 10 days; Reason: If symptoms return, Recheck today's complaints, Continuance of care, Re-evaluation by your physician. Problem is new. Symptoms are unchanged. jr8
--- NOTE | 2021-01-23 12:52 | ER ---
Nurse's Notes [facility] Name: Italia Avendano Age: 45 yrs Sex: Female : 1975 Arrival Date: 01/23/2021 Time: 10:09 Bed 23 Private MD: Ashanti Leach H Diagnosis: Effusion, left knee;Pain in left knee;Pain in left ankle and joints of left foot Presentation: 01/23 10:23 Chief complaint: Left knee swelling and pain that radiates to left ankle after knee ss gave out 3 days ago. Coronavirus screen: At this time, the client does not indicate any symptoms associated with coronavirus-19. Ebola Screen: No symptoms or risks identified at this time. Initial Sepsis Screen: Does the patient meet any 2 criteria? No. Patient's initial sepsis screen is negative. Does the patient have a suspected source of infection? No. Patient's initial sepsis screen is negative. Risk Assessment: Do you want to hurt yourself or someone else? Patient reports no desire to harm self or others. Onset of symptoms was January 20, 2021. 10:23 Method Of Arrival: Ambulatory ss 10:23 Acuity: BARRY 4 ss Historical: - Allergies: 10:26 Iodinated Contrast Media - IV Dye; ss 10:26 PENICILLINS; ss 10:26 SHELLFISH; ss - Home Meds: 10:26 Metoprolol Tartrate Oral [Active]; topiramate 50 mg Oral CSpX 1 cap once daily [Active];ss - PMHx: 10:26 Hypertension; Thyroid problem; ss - PSHx: 10:26 Tubal ligation; ss - Immunization history:: Adult Immunizations up to date. - Social history:: Smoking status: Patient denies any tobacco usage or history of. Screenin:00 Abuse screen: Denies threats or abuse. Denies injuries from another. Nutritional hb screening: No deficits noted. Tuberculosis screening: No symptoms or risk factors identified. Fall Risk None identified. Vital Signs: 10:23 BP 125 / 79; Pulse 77; Resp 16; Temp 97.1; Pulse Ox 100% on R/A; Pain 10/10; ss ED Course: 10:09 Patient arrived in ED. mr 10:09 Ashanti Leach DO is Private Physician. mr 10:25 Triage completed. ss 10:26 Arm band placed on. 12:05 Rafael Steward PA is PHCP. jr8 12:05 Jourdan Sanchez MD is Attending Physician. jr8 12:30 Patient has correct armband on for positive identification. Bed in low position. Call hb light in reach. 12:51 Santos Rogers MD is Referral Physician. jr8 13:03 No provider procedures requiring assistance completed. Patient did not have IV access hb during this emergency room visit. Administered Medications: No medications were administered Outcome: 12:52 Discharge ordered by . jr8 13:03 Discharged to home ambulatory. hb 13:03 Condition: stable 13:03 Discharge instructions given to patient, Instructed on discharge instructions, follow up and referral plans. medication usage, Demonstrated understanding of instructions, follow-up care, medications, Prescriptions given X 1. 13:04 Patient left the ED. hb Signatures: Mendez, Marisol mr MaureencurtAleida RN RN Rafael Steward PA PA [facility] Sudha Antonio RN RN hb
[2021-01-23 13:10] VITALS: BP 125/79; TEMP 97.1; O2SAT 100
== END 2021-01-23 13:04 | disposition home or self-care (01) ==
LOC: ER 10:05
DX: M25.562 Pain in left knee (principal); M25.572 Pain in left ankle and joints of left foot; M25.462 Effusion, left knee; I10 Essential (primary) hypertension
CPT/HCPCS: 99282

== ENCOUNTER 2022-04-16 13:35 | Emergency (ER) | payer OTHER ==
[2022-04-16] MEDS ORDERED: MORPHINE 2 MG/ML SYR ONE (14:34)
[2022-04-16] MEDS ORDERED: KETOROLAC 30 MG/ML INJ ONE (14:34)
[2022-04-16] MEDS ORDERED: NA CHLORIDE 0.9% 1,000 ML ONE ×2 (14:34→15:14)
[2022-04-16] MEDS ORDERED: ONDANSETRON 4 MG/2 ML VIAL ONE (14:34)
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
[2022-04-16 15:20] LABS: Urine Blood 1+ (Negative); Urine Glucose Negative (Negative); Urine Protein Negative (Negative); Urine Specific Gravity 1.015 (1.005-1.030); Urine pH 5.5 (5.0-7.0)
[2022-04-16 15:24] LABS: ALT/SGPT 18 U/L (12-78); AST/SGOT 8 U/L (15-37); Albumin 3.2 g/dL (3.4-5.0); Alkaline Phosphatase 77 U/L (45-117); BUN Blood Urea Nitrogen 11 mg/dL (7-18); Bicarbonate 24 mmol/L (21-32); Bilirubin Total 0.3 mg/dL (0.2-1.0); Glomerular Filtration Rate 65 ml/min (=/>90); Glucose Level 97 mg/dL (74-106); Lipase 74 U/L (73-393); Potassium 3.8 mmol/L (3.5-5.1); Sodium Level 137 mmol/L (136-145)
[2022-04-16 15:27] LABS: Bilirubin Direct < 0.1 mg/dL (0-0.2)
[2022-04-16 15:32] LABS: Absolute Lymphocytes (CBC) 2.4 K/uL (0.7-4.9); Hematocrit 36.6 % (36.0-45.0); Lymphocytes % 25.4 % (15.3-44.8); MCV 81.2 fL (80-100); MPV 8.7 fL (7.6-11.3); RBC Red Blood Cell Count 4.51 M/uL (3.86-4.86)
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
[2022-04-16] MEDS ORDERED: HYDROCODONE/APAP 10/325 TAB ONE (16:17)
[2022-04-16 16:40] VITALS: TEMP 98; O2SAT 100
[2022-04-16 16:41] VITALS: BP 129/91
[2022-04-16 17:38] LABS: Blood Morphology Comment NOT SEEN (NOT SEEN); Platelet Estimate ADEQ; White Blood Cell Scan OK (OK)
== END 2022-04-16 16:35 | disposition home or self-care (01) ==
LOC: ER 13:35
DX: S16.1XXA Strain of muscle, fascia and tendon at neck level, initial encounter (principal); S29.012A Strain of muscle and tendon of back wall of thorax, initial encounter; V49.9XXA Car occupant (driver) (passenger) injured in unspecified traffic accident, initial encounter; E07.9 Disorder of thyroid, unspecified; I10 Essential (primary) hypertension; Z88.0 Allergy status to penicillin; Z91.013 Allergy to seafood; Z91.041 Radiographic dye allergy status
CPT/HCPCS: 96361; 85025; 80048; 36415; 80076; 81003; 83690; 70450; 71250; 72125; 96375; 96374; 99284; J2270; J7030 ×2; J2405

== ENCOUNTER 2022-07-05 05:19 | Emergency (ER) | payer OTHER ==
[2022-07-05] MEDS ORDERED: HYDROCODONE/APAP 10/325 TAB ONE (06:36)
[2022-07-05] MEDS ORDERED: METHYLPREDNISOLONE 125 MG INJ ONE (06:36)
[2022-07-05] MEDS ORDERED: KETOROLAC 30 MG/ML INJ ONE (06:37)
--- NOTE | 2022-07-05 07:57 | EDPHYS ---
Physician Documentation [facility] Name: Italia Avendano Age: 47 yrs Sex: Female : 1975 Arrival Date: 07/05/2022 Time: 05:23 Bed 7 Private MD: ED Physician Negrito Cronin HPI: 07/05 07:47 This 47 yrs old Black Female presents to ER via Ambulatory with complaints of Low Back jr11 Pain, Knee Pain. 07:47 The patient presents with pain that is acute. The symptoms are located in the low back. jr11 The pain does not radiate. The problem was sustained from unknown cause, works at [employer], active on feet all day . Onset: The symptoms/episode began/occurred at night . Modifying factors: The patient symptoms are alleviated by nothing, the patient symptoms are aggravated by movement. Associated signs and symptoms: Pertinent negatives: abdominal pain, dysuria, incontinence, weakness. Severity of symptoms: At their worst the symptoms were moderate, in the emergency department the symptoms are actually worse. denies trauma . 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 - Social history:: Smoking status: . ROS: 07:47 All other systems are negative. jr11 Exam: 07:47 Constitutional: This is a well developed, well nourished patient who is awake, alert, jr11 and in no acute distress. Head/Face: Normocephalic, atraumatic. ENT: Nares patent. No nasal discharge, no septal abnormalities noted. Oropharynx with no redness, swelling, or masses, exudates, or evidence of obstruction, uvula midline. Mucous membranes moist. Neck: Trachea midline, no thyromegaly or masses palpated, and no cervical lymphadenopathy. Supple, full range of motion without nuchal rigidity, or vertebral point tenderness. No Meningismus. Chest/axilla: Normal chest wall appearance and motion. Nontender with no deformity. No lesions are appreciated. Cardiovascular: Regular rate and rhythm with a normal S1 and S2. No gallops, murmurs, or rubs. Normal PMI, no JVD. No pulse deficits. Respiratory: Lungs have equal breath sounds bilaterally, clear to auscultation and percussion. No rales, rhonchi or wheezes noted. No increased work of breathing, no retractions or nasal flaring. Abdomen/GI: Soft, non-tender, with normal bowel sounds. No distension or tympany. No guarding or rebound. No evidence of tenderness throughout. Back: No spinal tenderness. No costovertebral tenderness. Full range of motion. Skin: Warm, dry with normal turgor. Normal color with no rashes, no lesions, and no evidence of cellulitis. MS/ Extremity: Pulses equal, no cyanosis. Neurovascular intact. Full, normal range of motion. Neuro: Awake and alert, GCS 15, oriented to person, place, time, and situation. No gross motor or sensory deficits. Vital Signs: 05:27 BP 130 / 82; Pulse 73; Resp 18; Temp 97.8; Pulse Ox 99% ; Weight 95.25 kg; Height 5 ft. tw5 4 in. (162.56 cm); Pain 9/10; 06:53 BP 141 / 108; Pulse 64; Resp 16; Pulse Ox 100% on R/A; jb4 08:17 BP 132 / 82; Pulse 59; Resp 17; Pulse Ox 100% on R/A; kr3 05:27 Body Mass Index 36.05 (95.25 kg, 162.56 cm) tw5 MDM: 07:47 Patient medically screened. jr11 07:47 Differential diagnosis: arthritis, strain. Data reviewed: vital signs, nurses notes. jr11 07:55 ED course: Pt has had prior knee pain before, both joints with crepitus, enlarged, will jr11 f/u rheum . Administered Medications: 06:43 Drug: Ketorolac 15 mg Route: IVP; Site: right forearm; jb4 08:14 Follow up: Response: No adverse reaction kr3 06:43 Drug: SOLU-Medrol (methylPrednisoLONE) 125 mg Route: IVP; Site: right forearm; jb4 08:13 Follow up: Response: No adverse reaction kr3 06:43 Drug: [place] (HYDROcodone-acetaminophen) 10 mg-325 mg 1 tabs Route: PO; jb4 08:13 Follow up: Response: No adverse reaction; RASS: Alert and Calm (0) kr3 Disposition Summary: 07/05/22 07:57 Discharge Ordered Location: Home jr Condition: Stable jr11 Diagnosis - Polyarthritis, unspecified jr11 - Unspecified osteoarthritis, unspecified site jr11 Discharge Instructions: - Discharge Summary Sheet jr11 - Arthritis jr11 - Osteoarthritis jr11 Forms: - Medication Reconciliation Form jr11 - Thank You Letter jr11 - Antibiotic Education jr11 - Prescription Opioid Use jr11 Prescriptions: - methocarbamol 750 mg Oral tablet - take 1 tablet by ORAL route every 6 hours prn musc spasms; 20 tablet; Refills: jr11 0, Product Selection Permitted - Ibuprofen 600 mg Oral Tablet - take 1 tablet by ORAL route every 6 hours As needed take with food; 30 tablet; jr11 Refills: 0, Product Selection Permitted Signatures: Rubens Amaya MD MD kdr Jame Falcon RN RN jb4 Lydia Carter tw5 Negrito Cronin MD MD jr11 Stacy Wolfe RN kr3
--- NOTE | 2022-07-05 07:57 | ER ---
Nurse's Notes [facility] Name: Italia Avendano Age: 47 yrs Sex: Female : 1975 Arrival Date: 07/05/2022 Time: 05:23 Bed 7 Private MD: Diagnosis: Polyarthritis, unspecified;Unspecified osteoarthritis, unspecified site Presentation: 07/05 05:27 Chief complaint: Patient states: "I woke up out of my sleep around 4 AM, both of my tw5 knees are throbbing and my lower back is throbbing. I don't know what is going on. I know my left knee has been having issues since last year.". Ebola Screen: Patient negative for fever greater than or equal to 101.5 degrees Fahrenheit, and additional compatible Ebola Virus Disease symptoms Patient denies exposure to infectious person. Patient denies travel to an Ebola-affected area in the 21 days before illness onset. Initial Sepsis Screen: Does the patient meet any 2 criteria? No. Patient's initial sepsis screen is negative. Does the patient have a suspected source of infection? No. Patient's initial sepsis screen is negative. Risk Assessment: Do you want to hurt yourself or someone else? Patient reports no desire to harm self or others. Onset of symptoms was July 05, 2022 at 04:00. 05:27 Method Of Arrival: Ambulatory tw5 05:27 Acuity: BARRY 3 tw5 05:27 Coronavirus screen: Vaccine status: Patient reports receiving the 2nd dose of the covid tw5 vaccine. [employer]. Triage Assessment: 05:30 General: Appears in no apparent distress. uncomfortable, Behavior is calm, cooperative, tw5 appropriate for age. Pain: Complains of pain in right knee and left knee Pain currently is 9 out of 10 on a pain scale. [employer]: 05:30 LMP 07/05/2022 tw5 Historical: - Allergies: 05:30 Iodinated Contrast Media - IV Dye; tw 05:30 PENICILLINS; tw 05:30 SHELLFISH; tw - Home Meds: 05:30 Metoprolol Tartrate Oral [Active]; topiramate 50 mg Oral CSpX 1 cap once daily [Active];tw5 - PMHx: 05:30 Hypertension; Thyroid problem; tw5 - Immunization history:: Flu vaccine is up to date. - Social history:: Smoking status: . Screenin:14 Abuse screen: Denies threats or abuse. Nutritional screening: No deficits noted. kr3 Tuberculosis screening: No symptoms or risk factors identified. Fall Risk IV access (20 points). Total Zhou Fall Scale indicates No Risk (0-24 pts). Assessment: 06:08 General: Appears in no apparent distress. uncomfortable, Behavior is calm, cooperative, jb4 appropriate for age. Pain: Complains of pain in lumbar area, right knee and left knee Pain does not radiate. Pain currently is 9 out of 10 on a pain scale. Neuro: Level of Consciousness is awake, alert, obeys commands, Oriented to person, place, time, situation, Weakness in bilateral leg(s) Tingling in right quadriceps, right knee, right sosa, anterior aspect of right ankle, left gluteal fold, left hamstring, posterior aspect of left knee, left upper thigh and left quadriceps. Cardiovascular: Patient's skin is warm and dry. Respiratory: Airway is patent Respiratory effort is even, unlabored, Respiratory pattern is regular, symmetrical. GI: No signs and/or symptoms were reported involving the gastrointestinal system. : No signs and/or symptoms were reported regarding the genitourinary system. EENT: No signs and/or symptoms were reported regarding the EENT system. Derm: Skin is intact, Skin is pink, warm \\T\\ dry. Musculoskeletal: Circulation, motion, and sensation intact. Range of motion: intact in all extremities. 06:53 Reassessment: Patient appears in no apparent distress at this time. Patient and/or jb4 family updated on plan of care and expected duration. Pain level reassessed. Patient is alert, oriented x 3, equal unlabored respirations, skin warm/dry/pink. 08:15 Reassessment: No changes from previously documented assessment. Patient and/or family kr3 updated on plan of care and expected duration. Pain level reassessed. Vital Signs: 05:27 BP 130 / 82; Pulse 73; Resp 18; Temp 97.8; Pulse Ox 99% ; Weight 95.25 kg; Height 5 ft. tw5 4 in. (162.56 cm); Pain 9/10; 06:53 BP 141 / 108; Pulse 64; Resp 16; Pulse Ox 100% on R/A; jb4 08:17 BP 132 / 82; Pulse 59; Resp 17; Pulse Ox 100% on R/A; kr3 05:27 Body Mass Index 36.05 (95.25 kg, 162.56 cm) tw5 ED Course: 05:23 Patient arrived in ED. bp1 05:29 Triage completed. tw5 05:30 Arm band placed on. tw5 05:35 Rubens Amaya MD is Attending Physician. kdr 06:32 Jame Falcon, RN is Primary Nurse. jb4 06:43 Inserted saline lock: 20 gauge in right forearm, using aseptic technique. jb4 07:47 Attending Physician role handed off by Rubens Amaya MD jr11 07:47 Negrito Cronin MD is Attending Physician. jr11 08:14 No provider procedures requiring assistance completed. IV discontinued, intact, kr3 bleeding controlled, No redness/swelling at site. Pressure dressing applied. 08:15 Bed in low position. Call light in reach. Side rails up X 1. kr3 08:16 Dressings: wrapped bilateral knees with maximo bandages per dr orders. kr3 Administered Medications: 06:43 Drug: Ketorolac 15 mg Route: IVP; Site: right forearm; jb4 08:14 Follow up: Response: No adverse reaction kr3 06:43 Drug: SOLU-Medrol (methylPrednisoLONE) 125 mg Route: IVP; Site: right forearm; jb4 08:13 Follow up: Response: No adverse reaction kr3 06:43 Drug: Wynona (HYDROcodone-acetaminophen) 10 mg-325 mg 1 tabs Route: PO; jb4 08:13 Follow up: Response: No adverse reaction; RASS: Alert and Calm (0) kr3 Medication: 08:15 VIS not applicable for this client. kr3 Outcome: 07:57 Discharge ordered by . jr11 08:15 Discharged to home ambulatory. kr3 08:15 Condition: stable 08:15 Discharge instructions given to patient, Instructed on discharge instructions, follow up and referral plans. medication usage, Demonstrated understanding of instructions, follow-up care, medications, Prescriptions given X 2. 08:18 Patient left the ED. kr3 Signatures: Rubens Amaya MD MD kdr Jame Falcon, DESHAWN RN jb4 Darleen España Tiffany tw5 Negrito Cronin MD MD jr11 Stacy Wolfe RN RN kr3 Corrections: (The following items were deleted from the chart) 05:29 05:27 Acuity: BARRY 4 tw5 tw5
[2022-07-05 08:50] VITALS: TEMP 97.8
[2022-07-05 08:55] VITALS: O2SAT 100
[2022-07-05 08:57] VITALS: BP 132/82
== END 2022-07-05 08:18 | disposition home or self-care (01) ==
LOC: ER 05:19
DX: M13.0 Polyarthritis, unspecified (principal); Z88.0 Allergy status to penicillin; Z91.09 Other allergy status, other than to drugs and biological substances; Z91.013 Allergy to seafood; I10 Essential (primary) hypertension
CPT/HCPCS: 96375; 96374; 99283; J2930

== ENCOUNTER 2022-08-22 10:40 | Emergency (ER) | payer OTHER ==
[2022-08-22] MEDS ORDERED: ONDANSETRON 4 MG/2 ML VIAL ONE ×2 (11:15→12:50)
[2022-08-22] MEDS ORDERED: NA CHLORIDE 0.9% 1,000 ML ONE (11:15)
[2022-08-22] MEDS ORDERED: ASPIRIN 81 MG CHEWABLE TABLET ONE (11:15)
[2022-08-22 11:58] LABS: Absolute Lymphocytes (CBC) 1.2 K/uL (0.7-4.9); Hematocrit 39.7 % (36.0-45.0); Lymphocytes % 28.1 % (15.3-44.8); MCV 82.5 fL (80-100); MPV 7.7 fL (7.6-11.3); RBC Red Blood Cell Count 4.82 M/uL (3.86-4.86)
[2022-08-22 12:02] LABS: Protime INR 1.02
--- NOTE | 2022-08-22 12:04 | RAD REPORT ---
EXAM DESCRIPTION: RAD - Chest Single View - 08/22/2022 11:51 am CLINICAL HISTORY: CHEST PAIN Chest pain. COMPARISON: Chest Single View dated 05/05/2020; Chest Single View dated 11/15/2018 FINDINGS: Portable technique limits examination quality. The lungs are grossly clear. The heart is normal in size. No displaced fractures. IMPRESSION: No acute intrathoracic process suspected.
[2022-08-22 12:05] LABS: SARS-CoV-2 Antigen Rapid Res Negative (Negative)
[2022-08-22 12:18] LABS: ALT/SGPT 25 U/L (12-78); AST/SGOT 19 U/L (15-37); Albumin 3.4 g/dL (3.4-5.0); Alkaline Phosphatase 70 U/L (45-117); BUN Blood Urea Nitrogen 11 mg/dL (7-18); Bicarbonate 29 mmol/L (21-32); Bilirubin Total 0.3 mg/dL (0.2-1.0); Glomerular Filtration Rate 57 ml/min (=/>90); Glucose Level 104 mg/dL (74-106); Lipase 66 U/L (73-393); Magnesium 2.3 mg/dL (1.8-2.4); NT PRO-BNP 10 pg/mL (<125); Potassium 3.3 mmol/L (3.5-5.1); Protein, Total 8.5 g/dL (6.4-8.2); Sodium Level 139 mmol/L (136-145); Troponin High Sensitivity 6.1 pg/mL (<58.9)
--- NOTE | 2022-08-22 12:20 | ER ---
Nurse's Notes [facility] Name: Italia Avendano Age: 47 yrs Sex: Female : 1975 Arrival Date: 08/22/2022 Time: 10:48 Bed 6 Private MD: Diagnosis: Chest pain on breathing;Chest pain, unspecified;Essential (primary) hypertension Presentation: 08/22 10:49 Chief complaint: EMS states: client reports chest pain with breathing that started at kc6 about 8am this morning. 05/12. Coronavirus screen: Vaccine status: Patient reports receiving the 2nd dose of the covid vaccine. At this time, the client does not indicate any symptoms associated with coronavirus-19. Ebola Screen: No symptoms or risks identified at this time. Initial Sepsis Screen: Does the patient meet any 2 criteria? No. Patient's initial sepsis screen is negative. Does the patient have a suspected source of infection? No. Patient's initial sepsis screen is negative. Risk Assessment: Do you want to hurt yourself or someone else? Patient reports no desire to harm self or others. Onset of symptoms was August 22, 2022 at 08:00. 10:49 Method Of Arrival: EMS: [facility] kc6 10:49 Acuity: BARRY 3 kc6 Triage Assessment: 10:52 General: Appears in no apparent distress. uncomfortable, Behavior is calm, cooperative, kc6 appropriate for age. Pain: Complains of pain in right breast and left breast Pain does not radiate. Pain currently is 9 out of 10 on a pain scale. Quality of pain is described as sharp, Pain began 3 hours ago. Is continuous, Alleviated by nothing. Aggravated by increased activity, Also complains of nausea. EENT: No signs and/or symptoms were reported regarding the EENT system. Neuro: Peterson Agitation-Sedation Scale (RASS): 0 - Alert and Calm Level of Consciousness is awake, alert, obeys commands, Oriented to person, place, time, situation, Appropriate for age. Cardiovascular: Reports chest pain, Heart tones S1 S2 present Capillary refill < 3 seconds Rhythm is sinus rhythm. Respiratory: Airway is patent Trachea midline Respiratory effort is even, unlabored, Respiratory pattern is regular, symmetrical, Breath sounds are clear bilaterally. GI: Abdomen is flat, non-distended, Pt is actively vomiting Bowel sounds present X 4 quads. Abd is soft and non tender X 4 quads. : No signs and/or symptoms were reported regarding the genitourinary system. Derm: No signs and/or symptoms reported regarding the dermatologic system. Skin is intact, Skin is pink, warm \T\ dry. Musculoskeletal: No signs and/or symptoms reported regarding the musculoskeletal system. Circulation, motion, and sensation intact. Capillary refill < 3 seconds, Range of motion: intact in all extremities. Historical: - Allergies: 10:55 PENICILLINS; kc6 10:55 SHELLFISH; kc6 10:55 Iodinated Contrast Media - IV Dye; kc6 - Home Meds: 10:55 Metoprolol Tartrate Oral [Active]; kc6 - PMHx: 10:55 Hypertension; thyroid cancer; ovarian cancer; kc6 - PSHx: 10:55 Thyroidectomy; tubal ligation; kc6 - Immunization history:: Adult Immunizations up to date, Client reports receiving the 2nd dose of the Covid vaccine, Flu vaccine is up to date. - Social history:: Smoking status: Patient denies any tobacco usage or history of. - Family history:: not pertinent. Screenin:56 Abuse screen: Denies threats or abuse. Denies injuries from another. Nutritional kc screening: No deficits noted. Tuberculosis screening: No symptoms or risk factors identified. Fall Risk No fall in past 12 months (0 pts). No secondary diagnosis (0 pts). No IV (0 pts). Ambulatory Aid- None/Bed Rest/Nurse Assist (0 pts). Gait- Normal/Bed Rest/Wheelchair (0 pts) Mental Status- Oriented to own ability (0 pts). Total Zhou Fall Scale indicates No Risk (0-24 pts). Assessment: 10:54 Reassessment: please see triage assessment. kc6 11:54 Reassessment: Patient appears in no apparent distress at this time. No changes from 6 previously documented assessment. Patient and/or family updated on plan of care and expected duration. Pain level reassessed. Patient is alert, oriented x 3, equal unlabored respirations, skin warm/dry/pink. 12:54 Reassessment: Patient appears in no apparent distress at this time. No changes from [facility] previously documented assessment. Patient and/or family updated on plan of care and expected duration. Pain level reassessed. Patient is alert, oriented x 3, equal unlabored respirations, skin warm/dry/pink. 13:54 Reassessment: Patient appears in no apparent distress at this time. No changes from kc6 previously documented assessment. Patient and/or family updated on plan of care and expected duration. Pain level reassessed. Patient is alert, oriented x 3, equal unlabored respirations, skin warm/dry/pink. 14:54 Reassessment: Patient appears in no apparent distress at this time. No changes from kc6 previously documented assessment. Patient and/or family updated on plan of care and expected duration. Pain level reassessed. Patient is alert, oriented x 3, equal unlabored respirations, skin warm/dry/pink. 15:54 Reassessment: Patient appears in no apparent distress at this time. No changes from kc6 previously documented assessment. Patient and/or family updated on plan of care and expected duration. Pain level reassessed. Patient is alert, oriented x 3, equal unlabored respirations, skin warm/dry/pink. 16:52 Reassessment: Patient appears in no apparent distress at this time. No changes from kc previously documented assessment. Patient and/or family updated on plan of care and expected duration. Pain level reassessed. Patient is alert, oriented x 3, equal unlabored respirations, skin warm/dry/pink. 17:52 Reassessment: Patient appears in no apparent distress at this time. No changes from kc6 previously documented assessment. Patient and/or family updated on plan of care and expected duration. Pain level reassessed. Patient is alert, oriented x 3, equal unlabored respirations, skin warm/dry/pink. Vital Signs: 10:49 BP 125 / 97; Pulse 68; Resp 19 S; Temp 98.4; Pulse Ox 100% on R/A; Weight 99.79 kg (R); kc6 Height 5 ft. 3 in. (160.02 cm) (R); Pain 9/10; 12:00 BP 138 / 90; Pulse 80; Resp 12 S; Pulse Ox 100% on R/A; kc6 13:00 BP 112 / 83; Pulse 66; Resp 16 S; Pulse Ox 100% on R/A; kc6 14:00 BP 138 / 110; Pulse 71; Resp 16 S; Pulse Ox 100% on R/A; kc6 15:00 BP 124 / 99; Pulse 71; Resp 15; Pulse Ox 97% on R/A; kc6 16:00 BP 103 / 57; Pulse 69; Resp 16 S; Pulse Ox 99% on R/A; kc6 18:00 BP 108 / 76; Pulse 65; Resp 12 S; Pulse Ox 99% on R/A; kc6 10:49 Body Mass Index 38.97 (99.79 kg, 160.02 cm) kc6 ED Course: 10:48 Patient arrived in ED. kc6 10:49 Farzaneh Wild, DESHAWN is Primary Nurse. kc6 10:51 Triage completed. kc6 10:54 Jourdan Sanchez MD is Attending Physician. vince 11:22 Arm band placed on. jd3 11:22 EKG done, by ED staff, reviewed by Jourdan Sanchez MD. jd3 11:53 XRAY Chest (1 view) In Process Unspecified. EDMS 12:08 Accessed peripheral vein via ultrasound, utilizing dynamic ultrasound technique using jd3 20G Nexia IV catheter ,sterile technique, per hospital protocol. Clean \T\ dry. Dressing intact. Good blood return. Flushes easily. Right AC. 12:20 Bridger Naik MD is Hospitalizing Provider. vince 12:36 Elio Phelan is Hospitalizing Provider. vince 12:42 initiated a transfer with Alonso Prince from the [facility] transfer center at the request eb of the patient due to her insurance not being accepted at this facility. 14:13 US Extremity Venous W Compression [place] In Process Unspecified. EDMS 14:44 connected the hospitalist educational technician for [facility] with Sarbjit DOYLE for patient transfer eb consultation. 15:13 initiated a transfer with Colleen Smith Rn from the [facility] Transfer Center. eb 16:57 Patient has correct armband on for positive identification. Bed in low position. Call kc6 light in reach. Side rails up X 1. 16:57 No provider procedures requiring assistance completed. kc6 17:23 administrative approval given by Alonso Prince/ patient has been accepted to [id number] eb rm 1063/ Dr. Wiley has accepted the patient in transfer/ report to be called to [phone]. 18:49 Patient transferred, IV remains in place. kc6 Administered Medications: 11:33 Drug: Aspirin Chewable Tablet 162 mg Route: PO; kc6 12:30 Follow up: Response: No adverse reaction jd3 12:12 Drug: NS 0.9% 1000 ml Route: IV; Rate: 125 ml/hr; Site: right antecubital; kc6 13:18 Follow up: Response: No adverse reaction; IV Status: Infusion continued upon admission jd3 12:12 Drug: Zofran (Ondansetron) 4 mg Route: IVP; Site: right antecubital; kc6 13:00 Follow up: Response: No adverse reaction jd3 13:05 Drug: Lopressor (metoprolol TARTRATE)) 25 mg Route: PO; kc6 14:05 Follow up: Response: No adverse reaction; Blood pressure is lowered kc6 13:05 Drug: Norvasc (amlodipine) 10 mg Route: PO; kc6 14:05 Follow up: Response: No adverse reaction; Blood pressure is lowered kc6 13:05 Drug: Lovenox (enoxaparin) 100 mg Route: Sub-Q; Site: right lower abdomen; kc6 14:05 Follow up: Response: No adverse reaction kc6 13:05 Drug: morphine 4 mg Route: IVP; Infused Over: 4 mins; Site: right antecubital; kc6 14:05 Follow up: Response: No adverse reaction; Pain is decreased; RASS: Alert and Calm (0) kc6 13:05 Drug: Zofran (Ondansetron) 4 mg Route: IVP; Site: right antecubital; kc6 14:05 Follow up: Response: No adverse reaction; Nausea is decreased kc6 13:05 Drug: Pepcid (famotidine) 20 mg Route: IVP; Site: right antecubital; kc6 14:05 Follow up: Response: No adverse reaction kc6 Medication: 16:57 VIS not applicable for this client. kc6 Outcome: 12:20 Decision to Hospitalize by Provider. vince 14:58 ER care complete, transfer ordered by . vince 18:49 Transferred by ground EMS to [facility], Transfer form kc6 completed. 18:49 Condition: stable 18:49 Instructed on the need for transfer. 18:50 Patient left the ED. kc6 Signatures: Dispatcher [employer] EDMS Daniel, Jourdan, MD MD vince Keller, Rudy, RN RN jd3 Hale, Azra eb Wild, Farzaneh, RN RN kc6
--- NOTE | 2022-08-22 12:21 | EDPHYS ---
Physician Documentation [facility] Name: Italia Avendano Age: 47 yrs Sex: Female : 1975 Arrival Date: 08/22/2022 Time: 10:48 Bed 6 Private MD: ED Physician Jourdan Sanchez HPI: 08/22 12:12 This 47 yrs old Black Female presents to ER via EMS with complaints of chest pain and vince htn. 12:12 The patient has shortness of breath at rest, with light activity. Onset: The vince symptoms/episode began/occurred this morning. Duration: The symptoms are intermittent, with no pattern. The patient's shortness of breath is aggravated by exertion. The patient or guardian reports chest pain that is located primarily in the anterior chest wall, bilaterally. Onset: this morning. The pain does not radiate. Associated signs and symptoms: Pertinent positives: dizziness. Severity of symptoms: At their worst the symptoms were mild moderate in the emergency department the symptoms are unchanged. The chest pain is described as a pressure. Historical: - Allergies: 10:55 PENICILLINS; kc6 10:55 SHELLFISH; kc6 10:55 Iodinated Contrast Media - IV Dye; kc6 - Home Meds: 10:55 Metoprolol Tartrate Oral [Active]; kc6 - PMHx: 10:55 Hypertension; thyroid cancer; ovarian cancer; kc6 - PSHx: 10:55 Thyroidectomy; tubal ligation; kc6 - Immunization history:: Adult Immunizations up to date, Client reports receiving the 2nd dose of the Covid vaccine, Flu vaccine is up to date. - Social history:: Smoking status: Patient denies any tobacco usage or history of. - Family history:: not pertinent. ROS: 12:12 Constitutional: Negative for fever, chills, and weight loss, Eyes: Negative for injury, vince pain, redness, and discharge, ENT: Negative for injury, pain, and discharge, Neck: Negative for injury, pain, and swelling, Abdomen/GI: Negative for abdominal pain, nausea, vomiting, diarrhea, and constipation, Back: Negative for injury and pain, : Negative for injury, bleeding, discharge, and swelling, MS/Extremity: Negative for injury and deformity, Skin: Negative for injury, rash, and discoloration, Neuro: Negative for headache, weakness, numbness, tingling, and seizure, Psych: Negative for depression, anxiety, suicide ideation, homicidal ideation, and hallucinations, Allergy/Immunology: Negative for hives, rash, and allergies, Endocrine: Negative for neck swelling, polydipsia, polyuria, polyphagia, and marked weight changes, Hematologic/Lymphatic: Negative for swollen nodes, abnormal bleeding, and unusual bruising. 12:12 Cardiovascular: Positive for chest pain, of the chest. 12:12 Respiratory: Positive for shortness of breath, at rest. Exam: 12:12 Constitutional: This is a well developed, well nourished patient who is awake, alert, vince and in no acute distress. Head/Face: Normocephalic, atraumatic. Eyes: Pupils equal round and reactive to light, extra-ocular motions intact. Lids and lashes normal. Conjunctiva and sclera are non-icteric and not injected. Cornea within normal limits. Periorbital areas with no swelling, redness, or edema. ENT: Nares patent. No nasal discharge, no septal abnormalities noted. Tympanic membranes are normal and external auditory canals are clear. Oropharynx with no redness, swelling, or masses, exudates, or evidence of obstruction, uvula midline. Mucous membranes moist. Neck: Trachea midline, no thyromegaly or masses palpated, and no cervical lymphadenopathy. Supple, full range of motion without nuchal rigidity, or vertebral point tenderness. No Meningismus. Chest/axilla: Normal chest wall appearance and motion. Nontender with no deformity. No lesions are appreciated. Cardiovascular: Regular rate and rhythm with a normal S1 and S2. No gallops, murmurs, or rubs. Normal PMI, no JVD. No pulse deficits. Respiratory: Lungs have equal breath sounds bilaterally, clear to auscultation and percussion. No rales, rhonchi or wheezes noted. No increased work of breathing, no retractions or nasal flaring. Abdomen/GI: Soft, non-tender, with normal bowel sounds. No distension or tympany. No guarding or rebound. No evidence of tenderness throughout. Back: No spinal tenderness. No costovertebral tenderness. Full range of motion. Skin: Warm, dry with normal turgor. Normal color with no rashes, no lesions, and no evidence of cellulitis. MS/ Extremity: Pulses equal, no cyanosis. Neurovascular intact. Full, normal range of motion. Neuro: Awake and alert, GCS 15, oriented to person, place, time, and situation. Cranial nerves II-XII grossly intact. Motor strength 5/5 in all extremities. Sensory grossly intact. Cerebellar exam normal. Normal gait. Psych: Awake, alert, with orientation to person, place and time. Behavior, mood, and affect are within normal limits. 12:12 ECG was reviewed by the Attending Physician. Vital Signs: 10:49 BP 125 / 97; Pulse 68; Resp 19 S; Temp 98.4; Pulse Ox 100% on R/A; Weight 99.79 kg (R); kc6 Height 5 ft. 3 in. (160.02 cm) (R); Pain 9/10; 12:00 BP 138 / 90; Pulse 80; Resp 12 S; Pulse Ox 100% on R/A; kc6 13:00 BP 112 / 83; Pulse 66; Resp 16 S; Pulse Ox 100% on R/A; kc6 14:00 BP 138 / 110; Pulse 71; Resp 16 S; Pulse Ox 100% on R/A; kc6 15:00 BP 124 / 99; Pulse 71; Resp 15; Pulse Ox 97% on R/A; kc6 16:00 BP 103 / 57; Pulse 69; Resp 16 S; Pulse Ox 99% on R/A; kc6 18:00 BP 108 / 76; Pulse 65; Resp 12 S; Pulse Ox 99% on R/A; kc6 10:49 Body Mass Index 38.97 (99.79 kg, 160.02 cm) [facility] MDM: 10:54 Patient medically screened. vince 12:15 Differential diagnosis: Anxiety Reaction CHF exacerbation, Chronic Obstructive vince Pulmonary Disease abnormal EKG, acute myocardial infarction, anxiety, Cholelithiasis costochondritis, esophagitis, gastritis, herpes zoster, hiatal hernia, myocarditis, pneumonia, pneumothorax, pulmonary embolus, stable angina, unstable angina, Myocardial Infarction pneumonia, pulmonary edema, Pulmonary Embolism reactive airway disease, Unstable Angina. Antibiotic administration: Not indicated. HEART Score: History: Slightly Suspicious (0), ECG: Normal (0), Age: > 45 and < 65 years (1), Risk Factors: > or = 3 Risk factors for atherosclerotic disease (2), [Hypertension] [+ Family HX] [Obesity] Troponin: < or = 1 x Normal Limit (0). The patient was given aspirin in the Emergency Department. The patient's Wells Deep Vein Thrombosis Score was calculated as follows: the patient is receiving ongoing or pallative cancer treatment (1.0 Pts) Total Score: 1 to 2 points. This patient was found to be at moderate risk for a deep vein thrombosis by using the Well's assessment criteria Malignancy Total Score: 0-2 Pts- Low Risk. The patient's pulmonary embolism risk score was calculated as follows: malignancy Total Score: 0-2 points. This patient was found to be at low risk for a pulmonary embolism by using the Well's assessment criteria malignancy Total Score: 0-2 points. This patient was found to be at low risk for a pulmonary embolism by using the Well's assessment criteria. JANE Risk Score: TOTAL SCORE = 0. Immunization status:. Data reviewed: vital signs, nurses notes, lab test result(s), EKG, radiologic studies, plain films. Data interpreted: mathematical technician: rate is 80 beats/min, rhythm is regular, Pulse oximetry: on room air is 100 %. Test interpretation: by ED physician or midlevel provider: ECG, plain radiologic studies. Counseling: I had a detailed discussion with the patient and/or guardian regarding: the historical points, exam findings, and any diagnostic results supporting the discharge/admit diagnosis, the presence of at least one elevated blood pressure reading (>120/80) during this emergency department visit, lab results, the need for further work-up and treatment in the hospital. 08/22 10:58 Order name: Basic Metabolic Panel; Complete Time: 14:44 08/22 10:58 Order name: CBC with Diff; Complete Time: 12:04 08/22 10:58 Order name: LFT's; Complete Time: 14:44 08/22 10:58 Order name: Magnesium; Complete Time: 14:44 08/22 10:58 Order name: NT PRO-BNP; Complete Time: 14:44 08/22 10:58 Order name: PT-INR; Complete Time: 12:04 08/22 10:58 Order name: Troponin HS; Complete Time: 14:44 08/22 10:58 Order name: Lipase; Complete Time: 14:44 08/22 10:58 Order name: SARS RAPID; Complete Time: 12:19 08/22 12:04 Order name: D-Dimer; Complete Time: 14:44 [facility] 08/22 17:26 Order name: Basic Metabolic Panel [facility] 08/22 17:26 Order name: CBC with Automated Diff [facility] 08/22 10:58 Order name: XRAY Chest (1 view); Complete Time: 12:19 [facility] 08/22 12:31 Order name: US Extremity Venous W Compression [place]; Complete Time: 14:44 [facility] 08/22 17:26 Order name: Lipid Profile [facility] 08/22 17:26 Order name: Troponin High Sensitivity [facility] 08/22 10:58 Order name: EKG; Complete Time: 10:58 [facility] 08/22 10:58 Order name: Cardiac monitoring; Complete Time: 10:59 [facility] 08/22 10:58 Order name: EKG - Nurse/Tech; Complete Time: 11:22 [facility] 08/22 10:58 Order name: IV Saline Lock; Complete Time: 12:01 [facility] 08/22 10:58 Order name: Labs collected and sent; Complete Time: 12:01 [facility] 08/22 10:58 Order name: O2 Per Protocol; Complete Time: 10:59 [facility] 08/22 10:58 Order name: O2 Sat Monitoring; Complete Time: 10:59 [facility] 08/22 17:26 Order name: Heart Healthy EDMS EC:12 Rate is 75 beats/min. Rhythm is regular. QRS [place] is Normal. [place] interval is normal. QRS vince interval is normal. QT interval is normal. No Q waves. T waves are Normal. No ST changes noted. Clinical impression: Normal ECG and No evidence of ischemia. Interpreted by me. Administered Medications: 11:33 Drug: Aspirin Chewable Tablet 162 mg Route: PO; kc6 12:30 Follow up: Response: No adverse reaction jd3 12:12 Drug: NS 0.9% 1000 ml Route: IV; Rate: 125 ml/hr; Site: right antecubital; kc6 13:18 Follow up: Response: No adverse reaction; IV Status: Infusion continued upon admission jd3 12:12 Drug: Zofran (Ondansetron) 4 mg Route: IVP; Site: right antecubital; kc6 13:00 Follow up: Response: No adverse reaction jd3 13:05 Drug: Lopressor (metoprolol TARTRATE)) 25 mg Route: PO; kc6 14:05 Follow up: Response: No adverse reaction; Blood pressure is lowered kc6 13:05 Drug: Norvasc (amlodipine) 10 mg Route: PO; kc6 14:05 Follow up: Response: No adverse reaction; Blood pressure is lowered kc6 13:05 Drug: Lovenox (enoxaparin) 100 mg Route: Sub-Q; Site: right lower abdomen; kc6 14:05 Follow up: Response: No adverse reaction kc6 13:05 Drug: morphine 4 mg Route: IVP; Infused Over: 4 mins; Site: right antecubital; kc6 14:05 Follow up: Response: No adverse reaction; Pain is decreased; RASS: Alert and Calm (0) kc6 13:05 Drug: Zofran (Ondansetron) 4 mg Route: IVP; Site: right antecubital; kc6 14:05 Follow up: Response: No adverse reaction; Nausea is decreased kc6 13:05 Drug: Pepcid (famotidine) 20 mg Route: IVP; Site: right antecubital; kc6 14:05 Follow up: Response: No adverse reaction kc6 Disposition Summary: 08/22/22 14:58 Transfer Ordered Transfer Location: [facility] vince Reason: Higher level of care vince Condition: Stable(08/22/22 14:58) vince Problem: new(08/22/22 14:58) vince Symptoms: have improved(08/22/22 14:58) vince Accepting Physician: [facility](08/22/22 18:50) kc6 Diagnosis - Chest pain on breathing(08/22/22 14:58) vince - Chest pain, unspecified(08/22/22 14:58) vince - Essential (primary) hypertension(08/22/22 14:58) vince Forms: - Medication Reconciliation Form vince - SBAR form vince Signatures: Dispatcher [employer] Jourdan Kwok MD MD cha Mickail, Joel, PA PA jmm Campbell, Kaitlyn RN RN kc6 Rudy Keller RN jd3 Corrections: (The following items were deleted from the chart) 12:36 12:20 Bridger Naik vince vince 14:56 12:20 Observation vince vince 14:56 12:20 Telemetry/MedSurg (observation) vince vince 14:56 12:20 Stable vince vince 14:56 12:20 new vince vince 14:56 12:20 have improved vince vince 14:56 12:20 Standard vince vince 14:56 12:20 vince vince 14:56 12:20 Chest pain on breathing vince vince 14: 12:20 Chest pain, unspecified vince vince 14:56 12:20 Essential (primary) hypertension vince vince 14:56 12:36 Elio Phelan vince vince 18:04 17:26 Chest For Pe Angio ordered. EDMS EDMS 18:50 14:58 [facility] kc6
[2022-08-22 12:32] LABS: Bilirubin Direct < 0.1 mg/dL (0-0.2)
[2022-08-22] MEDS ORDERED: MORPHINE 4 MG/ML SYR ONE (12:49)
[2022-08-22] MEDS ORDERED: METOPROLOL TAR 25 MG TAB ONE (12:50)
[2022-08-22] MEDS ORDERED: FAMOTIDINE 20 MG/2 ML VIAL IV ONE (12:50)
[2022-08-22] MEDS ORDERED: AMLODIPINE 10 MG TAB ONE (12:50)
[2022-08-22] MEDS ORDERED: ENOXAPARIN 100 MG/ML SYR SQ ONE (12:50)
--- NOTE | 2022-08-22 14:27 | RAD REPORT ---
EXAM DESCRIPTION: US - Extrem Venous W Compress [place] - 08/22/2022 2:11 pm CLINICAL HISTORY: PAIN Bilateral leg edema and swelling. COMPARISON: <Comparisons> TECHNIQUE: Real-time sonographic interrogation of the left and right lower extremity deep venous sys tems was performed. FINDINGS: Normal compressibility, flow augmentation, phasic flow and spontaneous flow is identified in both the left and right lower extremity deep venous systems. IMPRESSION: No sonographic evidence of left or right lower extremity deep venous thrombosis.
--- NOTE | 2022-08-22 15:24 | P.HP ---
Certification for Inpatient Patient admitted to: Observation With expected LOS: <2 Midnights Practitioner: I am a practitioner with admitting privileges, knowledge of patient current condition, hospital course, and medical plan of care. Services: Services provided to patient in accordance with Admission requirements found in Title 42 Section 412.3 of the Code of Federal Regulations Patient History Date of Service: 08/22/22 Reason for admission: Shortness of breath and chest pain History of Present Illness: 47-year-old -[place] woman with a past medical history of hypertension presented to the emergency department with a complaint of shortness of breath and chest pain worse with exertion. She states that her symptoms have been present for about 3 days. She denied any cough or palpitation. Patient noted to be short of breath just by transferring to bed. She reports multiple family members a history of blood clots and heart attack. Her initial troponin is n egative. D-dimer is elevated. Chest x-ray unremarkable. Venous Doppler of lower extremities shows no acute DVT. Patient reports mild allergy to iodine contrast with a rash however she has had a CT with IV contrast before but had to be premedicated before the procedure. Patient placed under observation for further management. Allergies Penicillins Allergy (Verified 02/12/16 09:12) Anaphylaxis shellfish derived Allergy (Verified 02/12/16 09:12) Rash Home Medications: NK [No Home Meds] 02/12/16 - Past Medical/Surgical History Diabetic: No -: Hypertension -: tubal ligation - Family History Sister -: Heart disease Brother -: Heart disease - Social History Smoking Status: Never smoker Alcohol use: No CD- Drugs: No Caffeine use: Yes Review of Systems Other: Except as documented, all other systems reviewed and negative. Physical Examination - Physical Exam General: Alert, In no apparent distress, Oriented x3 HEENT: Mucous membr. moist/pink Neck: Supple, JVD not distended Respiratory: Clear to auscultation bilaterally, Normal air movement Cardiovascular: No edema, Regular rate/rhythm, Normal S1 S2, No murmurs Capillary refill: <2 Seconds Gastrointestinal: Normal bowel sounds, Soft and benign, Non-distended, No tenderness Musculoskeletal: No swelling, No tenderness Integumentary: No rashes, No cyanosis Neurological: Normal speech, Normal strength at 5/5 x4 extr, Cranial nerves 3-12 intact Lymphatics: No axilla or inguinal lymphadenopathy - Studies Laboratory Data (last 24 hrs) 08/22/22 11:51: PT 11.2, INR 1.02 08/22/22 11:51: WBC 4.40, Hgb 12.8, Hct 39.7, Plt Count 271 08/22/22 11:51: Sodium 139, Potassium 3.3 L, BUN 11, Creatinine 1.18, Glucose 104, Magnesium 2.3, Total Bilirubin 0.3, AST 19, ALT 25, Alkaline Phosphatase 70, Lipase 66 L Assessment and Plan - Problems (Diagnosis) (1) Chest pain Current Visit: Yes Status: Acute (2) Hypertension Current Visit: Yes Status: Acute (3) Dyspnea on exertion Current Visit: Yes Status: Acute (4) Elevated d-dimer Current Visit: Yes Status: Acute - Plan Placed under observation. Trend troponin. Start aspirin. Continue home dose metoprolol. Check lipid profile Check hemoglobin A1c Obtain echo. Premedicate with oral prednisone and obtain CTA thorax. - Advance Directives Does patient have a Living Will: No Does patient have a Durable POA for Healthcare: No
[2022-08-22] MEDS ORDERED: ACETAMINOPHEN 500 MG TAB PO PRN (17:24)
[2022-08-22] MEDS ORDERED: NITROGLYCERIN 0.4 MG/TAB SL PRN (17:24)
[2022-08-22] MEDS ORDERED: predniSONE 20 MG TAB PO ONE (18:00)
[2022-08-22 19:09] VITALS: TEMP 98.4
[2022-08-22 19:15] VITALS: O2SAT 99
[2022-08-22 19:16] VITALS: BP 108/76
[2022-08-23] MEDS ORDERED: METOPROLOL XL 25 MG TAB PO SCH (06:00)
[2022-08-23] MEDS ORDERED: predniSONE 20 MG TAB PO ONE ×2 (07:00→08:00)
[2022-08-23] MEDS ORDERED: ENOXAPARIN 40 MG/0.4 ML SQ SCH (09:00)
[2022-08-23] MEDS ORDERED: ASPIRIN EC 81 MG TAB PO SCH (09:00)
--- NOTE | 2022-08-23 15:31 | EKG ---
Test Date: 2022-08-22 Test Time: 11:19:04 Trolley Car Operator: MUMTAZ MEASUREMENT RESULTS: Intervals: Rate: 75 AL: 136 QRSD: 76 QT: 402 QTc: 448 [place]: P: 42 AL: 136 QRS: 26 T: 40 INTERPRETIVE STATEMENTS: Normal sinus rhythm Normal ECG Compared to ECG 11/15/2018 10:18:26 No significant changes Electronically Signed On 08-23-22 15:28:34 [employer]INT [employer]W SUPERVISOR by Amado Wolfe
== END 2022-08-22 18:50 | disposition short-term general hospital (02) ==
LOC: ER 10:40
DX: R07.1 Chest pain on breathing (principal); R07.89 Other chest pain; I10 Essential (primary) hypertension; R06.00 Dyspnea, unspecified; R79.9 Abnormal finding of blood chemistry, unspecified; Z20.822 Contact with and (suspected) exposure to COVID-19; Z88.0 Allergy status to penicillin; Z91.013 Allergy to seafood; Z91.041 Radiographic dye allergy status; Z85.43 Personal history of malignant neoplasm of ovary; Z85.850 Personal history of malignant neoplasm of thyroid; Z82.49 Family history of ischemic heart disease and other diseases of the circulatory system
CPT/HCPCS: 96361; 93005; 85025; 80048; 36415; 83735; 85610; 85379; 80076; 84484; 83690; 83880; 71045; 93970; 96375; 96372; 96374; 99285; 87811; J1650; J7030; J2405 ×2

== ENCOUNTER 2025-01-30 15:36 | Emergency (ER) | payer OTHER ==
--- OUTSIDE RECORDS SUMMARY | 2025-01-30 15:40 | XMS REPORT | Continuity of Care Document ---
Author Name Unknown Address [address] [place] [address] [facility] Address [address] [place] [address] Care Team Providers Care Operating Room Nurse Name Role Phone PCP, PATIENT DOES NOT HAVE A Primary Care Physic allie Unavailable ANSELMO VAZQUEZ Attending Clinician Unav ailable [place], [facility] Pain Management Shilpa 1 - Attending Clinician Unavailable Eladio Dolan MD Attending Clinician Sena Solorzano RN Attending Clinician [phone] KELI ROBERTS Attending Clinician Unavailable Didi Mayberry MD Attending Clinician [phone]- [phone] Keli Roberts MD Attending Clinician [phone] DIDI MAYBERRY Admitting Clinician UnavailDidi Garcia MD Admitting Clinician [phone]- [phone] Payers Payer Name Policy Type Policy Number Effective Date Expirati on Date Source [employer] OPEN ACCESS/OPEN ACCESS PLUS [id number] 2009 00:00:00 Problems Condition Name Condition Details Condition Category Status Onset Date Resolution Date Last Treatment Date Treating Clinician Comments Source Facet arthritis of lumbar region Facet arthritis of lumbar region Disease Active 01-25 00:00: 00 [facility] Right sided sciatica Right sided sciatica Disease Active 01-25 00:00: 00 [facility] Lumbar disc herniation Lumbar disc herniation Disease Active 01-25 00:00: 00 Last Assessmen t & Plan: Formattin g of this note might be different from the original. Pending results of the MRI to be sent over from the emergency room. And I have ordered her referral to see anesthesi a pain managemen t for possible lumbar disc herniatio n with her symptomat ic setting of total right lower extremity have also given her prescript ion for physical therapy to start with she has completed Medrol prednison e Dosepak she may continue taking diclofena c. I have sent a prescript ion for methocarb kaylee 750 mg. [facility] Primary osteoarthr itis of both knees Primary osteoarthr itis of both knees Disease Active 01-05 00:00: 00 Last Assessmen t & Plan: Formattin g of this note might be different from the original. Stable, we will see approved for SALAZAR injection after 03/30/2023 3 months of conservat john treatment . She has done fairly well with CSI injection . Patient verbalize sharron benjamin. We will call once approved. Patient verbalize sharron benjamin we will call her once approved. Discussed with patient that the significa nt individua l improveme nts in knee pain, stiffness , and function in patients with osteoarth ritis treated with viscosupp lementati on injection s compared with intra-art icular corticost eroids or placebo, the [employer] (AMSSM) has recommend this treatment for knee osteoarth ritis. The research is published in the Clinical Journal of Sport Medicine. Each injectabl e medicatio n studied may have a different role in treating knee osteoarth ritis. Intra articular steroid injection was superior from 0 to 4 weeks after administr ation, but hyaluroni c injection was superior from 4 to 26 weeks. This could mean that intra articular steroid injection may be able to rapidly abort a flare of knee osteoarth ritis, while Hyaluroni c injection s may be used for longer-te rm control of baseline symptoms but may not be appropria te for treating acute exacerbat ions.Hand out for Hyaluroni c acid injection was made available to the patient. Any questions regarding the injection were answered, including common side effects.R ecommend intra articular steroid injection no sooner than 3 months at a time. Patient has opted for non-opera tive treatment and managemen t of knee osteoarth ritis and declines referral for total knee joint surgery at this time. Physical therapy ordered as well as recommend weight loss.Disc ussed at length the benefits and possible risks of Viscosupp lementati on injection with the patient. Will seek approval from the insurance company and once that has been obtained, the procedure will be scheduled in the office. [facility] Chronic pain of both knees Chronic pain of both knees Disease Active 01-05 00:00: 00 [facility] KNEE PAIN KNEE PAIN Active 10/03/2022 [facility] Diagnosis Active 10-03 08:00: 00 2023-01-17 15:12:00 Daniel Jacobsen History of ovarian cancer History of ovarian cancer Disease Active 2021-10 00:00: 00 [facility] History of thyroid cancer History of thyroid cancer Disease Active 2021-10 00:00: 00 [facility] HTN (hypertens ion) HTN (hypertens ion) Disease Active 2021-10 00:00: 00 [facility] Osteoarthr itis of knees, bilateral Osteoarthr itis of knees, bilateral Disease Active 2021-10 00:00: 00 [facility] Obesity (BMI 30-39.9) Obesity (BMI 30-39.9) Disease Active 2021-10 00:00: 00 [facility] ANGINA(EDIL ST PAIN) ANGINA(EDIL ST PAIN) Active 08/22/2022 Roger Jacobsen Diagnosis Active 2021-10 00:00: 00 2022-08-22 21:46:00 Daniel Jacobsen M25.569 - PAIN IN UNSPECIFIE D KNEE M25.569 - PAIN IN UNSPECIFIE D KNEE Active OPISharron Titus Diagnosis Active 2022-12-15 14:18:00 Daniel Jacobsen Allergies, Adverse Reactions, Alerts Allergy Name Allergy Type Status Severity Reaction(s) Onset Date Inactive Date Treating Clinician Comments Source Shellfis h-Derive d Products Propensi ty to adverse reaction s Active Swelling 4-05 00:00: 00 [facility] IODINATE D CONTRAST MEDIA Drug Class Active Unknown-Cmnt 2021-10 00:00: [address] [facility] Iodinate d Contrast Media Propensi ty to adverse reaction s Active Unknown - See comments 2021-10 00:00: 00 Hives, has had contrast studies previousl y during which she was premedica dennys with benadryl and tolerated the contrast well with minimal hives [facility] Iodinate d Contrast Media Propensi ty to adverse reaction s Active 2021-10 00:00: 00 Other reaction( s): Unknown - See commentsH dominic, has had contrast studies previousl y during which she was premedica dennys with benadryl and tolerated the contrast well with minimal hives [facility] Penicill ins Allergy to substanc e Active Swelling 5-12 00:00: 00 Other reaction( s): Anaphylax is [facility] Social History Social Habit Start Date Stop Date Quantity Comments Source History of tobacco use Passive smoker [facility] Alcohol intake 2023-04-01 00:00:00 2023-04-01 00:00:00 .29 /d [facility] Exposure to SARS-CoV-2 (event) 2023-02-21 00:00:00 2023-03-03 07:31:00 Not sure [facility] Tobacco use and exposure 2023-01-05 00:00:00 2023-01-05 00:00:00 Smokeless tobacco non-user [facility] Alcohol Comment 2023-01-05 00:00:00 2023-01-05 00:00:00 1 or 2 glasses maybe every other weekend [facility] Sex Assigned At 1975 00:00:00 1975 00:00:00 F [facility] Smoking Status Start Date Stop Date Source Never smoked tobacco [facility] Occasional tobacco smoker 2022-08-22 00:00:00 [facility] Medications Ordered Medication Name Filled Medication Name Start Date Stop Date Current Medication? Ordering Clinician Indication Dosage Frequency Signature (SIG) Comments Components Source celecoxib (CeleBREX) 200 MG capsule 6-30 00:00: 00 Yes [id number] 200mg Take 1 capsule (200 mg total) by mouth 1 (one) time each day if needed for mild pain for up to 15 doses. [facility] gabapentin (Neurontin) 300 MG capsule 18 00:00: 00 04-19 04:59 :00 No [id number] 300mg Q.[id number] 3D Take 1 capsule (300 mg total) by mouth in the morning and 1 capsule (300 mg total) at noon and 1 capsule (300 mg total) in the evening. [facility] methocarbam ol (Robaxin) 750 MG tablet 02-16 00:00: 00 Yes [id number] 750mg Q.[id number] 3D Take 1 tablet (750 mg total) by mouth 3 (three) times a day if needed for muscle spasms for up to 10 days. [facility] methocarbam ol (Robaxin) 750 MG tablet 01-25 00:00: 00 02-05 04:59 :00 No [id number] 750mg Q.[id number] 3D Take 1 tablet (750 mg total) by mouth 3 (three) times a day if needed for muscle spasms for up to 10 days. [facility] metoprolol succinate XL (Toprol-XL) 25 MG 24 hr tablet 01-24 00:00: 00 Yes 25mg QD Take 25 mg by mouth 1 (one) time each day. [facility] pantoprazol e (ProtoNix) 40 MG EC tablet 01-24 00:00: 00 Yes 40mg QD Take 40 mg by mouth 1 (one) time each day. [facility] topiramate 50 MG tablet 01-24 00:00: 00 Yes 1{tbl} Take 1 tablet by mouth if needed. [facility] triamcinolo ne acetonide (Kenalog) 10 MG/ML injection 10 mg 01-05 14:45: 00 01-05 14:45 :00 No [id number] 10mg [facility] bupivacaine (Marcaine) 0.25 % injection 4 mL 05 14:45: 00 01-05 14:45 :00 No [id number] 4mL [facility] lidocaine (Xylocaine) 2 % injection 2 mL 405 14:45: 00 01-05 14:45 :00 No [id number] 2mL [facility] metoprolol tartrate 25 mg tablet 2021-10 00:00: 00 Yes 25mg Take 1 tablet by mouth in the [facility]. [facility] 0.9% (NS) IV infusion 250 mL 2021-10 17:30: 00 Yes [id number] 250mL at 20 mL/hr, IV Infusion, CONTINUOUS , Starting on Tue08/25/22 at 1130, Until Discontinu ed, Routine
To keep vein open
[facility] perflutren lipid microsphere s (DEFINITY) injection 2 mL 2021-10 17:15: 00 08-25 17:13 :00 No [id number] 2mL 2 mL, IV Push, ONCE, 1 dose, On Tue08/25/22 at 1115, Routine [facility] metoprolol (LOPRESSOR) injection 5 mg 2021-10 17:15: 00 08-25 17:31 :00 No [id number] 5mg 5 mg, Slow IV Push, ONCE, 1 dose, On Tue08/25/22 at 1115, Routine [facility] atropine injection 1 mg 2021-10 17:15: 00 08-25 17:15 :00 No [id number] 1mg 1 mg, Slow IV Push, ONCE, 1 dose, On Tue08/25/22 at 1115, Routine [facility] DOBUTamine (DOBUTREX) 50 mg/50 mL IV infusion 2021-10 16:29: 01 Yes [id number] 5ug/kg/ min 5 mcg/kg/min ?97 kg (29.1 mL/hr), IV Infusion, TITRATE, MAP Goal > or = 65 mmHg, Titrate per admin instructio ns, Starting on Tue08/25/22 at 1029
No te and document the precise time that this is 3. ac complished . Begin the count with the EKG system's DSE applicatio n program. This is time zero.&nbsp ; At 2 minutes and 30 seconds after beginning the initial dosing, acquire parasterna l long axis and parasterna l short axis view at papillary level, apical 4 chamber, 2 chamber and apical long axis view, and BP At the 3 minute interval, simultaneo usly obtain a 12 lead EKG, heart rate and 02 saturation and increase the Dobutamine infusion to 10 mcg/kg/min . At the 5 minutes and 30 second interval, acquire parasterna l long axis and parasterna l short&nbsp ;axis view at papillary level, apical 4 chamber, 2 chamber and apical long axis view and measure BP. At the 6 minute interval, simultaneo usly obtain a 12 lead EKG, heart rate and 02saturati on an d increase the Dobutamine infusion to 20 mcg/kg/min . At the 8 minutes and 30 second interval, acquire parasterna l long axis and parasterna l short&nbsp ;axis view at papillary level, apical 4 chamber, 2 chamber and apical long axis view and measure BP. At the 9 minute interval, simultaneo usly obtain a 12 lead EKG, heart rate and 02 saturation and increase the Dobutamine infusion to 30 mcg/kg/min . (see Adjunctive Therapy)&n bsp; At the 11 minutes and 30 second interval, acquire parasterna l long axis and parasterna l short&nbsp ;axis view at papillary level, apical 4 chamber, 2 chamber and apical long axis view and m easure BP. At the 12 minute interval, simultaneo usly obtain a 12 lead EKG, heart rate and 02 saturation and increase the Dobutamine infusion to 40 mcg/kg/min . (see Adjunctive Therapy&nb sp; At the 14 minutes and 30 second interval, acquire parasterna l long axis and parasterna l short&nbsp ;axis view at papillary level, apical 4 chamber, 2 chamber and apical long axis view and m easure BP. At the 15 minute interval, simultaneo usly obtain a 12 lead EKG, heart rate and 02 saturation and terminate the Dobutamine infusion. (see Adjunctive Therapy)<b r> [facility] sulfur hexafluorid e microsphr (LUMASON) injection 5 mL 2021-10 20:30: 00 08-23 20:30 :00 No [id number] 5mL 5 mL, Intravenou s, ONCE, 1 dose, On Tue08/23/22 at 1430, Routine
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 enoxaparin (LOVENOX) injection 40 mg 2021-10 15:00: 00 Yes 40mg 40 mg, Subcutaneo us, DAILY, First dose on Tue08/23/22 at 0900, Until Discontinu ed, Routine [facility] iopamidol (ISOVUE 370-500 mL) injection 90 mL 2021-10 05:16: 00 08-23 05:30 :00 No [id number] 90mL 90 mL, Intravenou s, ONCE, 1 dose, On Tue08/22/22 at 2330, Routine [facility] acetaminoph en (TYLENOL) tablet 650 mg 2021-10 03:48: 18 Yes 650mg 650 mg, Oral, Q6HPRN, Starting on Tue08/22/22 at 2148, Until Discontinu ed, Routine, Pain (scale 1-3), Pain (scale 4-6) [facility] diphenhydrA MINE (BENADRYL) capsule 50 mg 2021-10 02:48: 55 Yes 50mg 50 mg, Oral, SEE-INSTRU CTIONS, Starting on Tue08/22/22 at 2048, Until Discontinu ed, Routine [facility] predniSONE (DELTASONE) tablet 50 mg 2021-10 02:48: 11 Yes 50mg 50 mg, Oral, SEE-INSTRU CTIONS, Starting on 08/22/22 at 2047, Until Discontinu ed, Routine [facility] famotidine (PEPCID AC) tablet 20 mg 2021-10 02:47: 49 Yes 20mg 20 mg, Oral, SEE-INSTRU CTIONS, Starting on 08/22/22 at 2046, Until Discontinu ed, Routine [facility] Vital Signs Vital Name Observation Time Observation Value Comments S ource Systolic blood pressure 2023-04-01 15:51:00 125 mm[Hg] [facility] Diastolic blood pressure 2023-04-01 15:51:00 89 mm[Hg] [facility] Heart rate 2023-04-01 15:51:00 98 /min [facility] Body weight 2023-04-01 15:51:00 91.627 [facility] Systolic blood pressure 2023-03-03 12:56:00 118 mm[Hg] [facility] Diastolic blood pressure 2023-03-03 12:56:00 83 mm[Hg] [facility] Heart rate 2023-03-03 12:56:00 89 /min [facility] Body temperature 2023-03-03 12:56:00 36.78 [facility] Body weight 2023-03-03 12:56:00 91.627 [facility] Oxygen saturation in Arterial blood by Pulse oximetry 2023-03-03 12:56:00 98 /min [facility] Systolic blood pressure 2023-02-17 18:03:00 128 mm[Hg] [facility] Diastolic blood pressure 2023-02-17 18:03:00 81 mm[Hg] [facility] Heart rate 2023-02-17 18:03:00 79 /min [facility] Body weight 2023-02-17 18:03:00 [facility].534 [facility] Body temperature 2022-08-25 10:35:00 36.28 [facility] Respiratory rate 2022-08-25 10:35:00 16 /min [facility] Oxygen saturation in Arterial blood by Pulse oximetry 2022-08-25 10:35:00 99 /min [facility] Systolic blood pressure 2022-08-25 10:35:00 119 mm[Hg] [facility] Diastolic blood pressure 2022-08-25 10:35:00 74 mm[Hg] [facility] Heart rate 2022-08-25 10:35:00 71 /min [facility] Body height 2022-08-23 03:41:00 160 cm [facility] Body weight 2022-08-23 03:41:00 97 kg [facility] BMI 2022-08-23 03:41:00 37.73 kg/m2 [facility] Procedures Procedure Date / Time Performed Performing Clinician Source [place] FLUOROSCOPY ASSIST UP TO 1 HOUR 2023-03-03 13:04:18 Anselmo Vazquez [facility] ARTHROCENTESIS ASPIR&/INJ MAJOR JT/BURSA W/US BILATERAL 2023-01-05 14:45:00 Eladio Dolan [facility] COMPLETE ECHOCARDIOGRAM DOBUTAMINE STRESS TEST W CONTRAST 2022-08-25 17:44:59 [facility] BASIC METABOLIC PANEL (NA, K, CL, CO2, GLUCOSE, BUN, CREATININE, CA) 2022-08-25 12:02:00 [facility] CBC WITH DIFF 2022-08-25 12:02:00 [facility] COMP. METABOLIC PANEL ([id number]) 2022-08-24 11:32:00 [facility] CBC WITH DIFF 2022-08-24 11:32:00 [facility] TRANSTHORACIC ECHO (TTE) COMPLETE W/ CONTRAST 2022-08-23 20:17:54 [facility]a [facility] TROPONIN I 2022-08-23 19:35:00 [facility] TROPONIN I 2022-08-23 11:28:00 [facility] BASIC METABOLIC PANEL (NA, K, CL, CO2, GLUCOSE, BUN, CREATININE, CA) 2022-08-23 11:28:00 [facility] CBC WITH DIFF 2022-08-23 11:28:00 [facility] CT CHEST PULMONARY ANGIOGRAM 2022-08-23 05:23:43 [facility] TROPONIN I 2022-08-23 03:37:00 [facility] HEPATIC FUNCTION PANEL ([id number]) (ALB,T.PRO,BILI T,BU/BC,ALT,AST,ALK PHOS) 2022-08-23 03:37:00 [facility] BASIC METABOLIC PANEL (NA, K, CL, CO2, GLUCOSE, BUN, CREATININE, CA) 2022-08-23 03:37:00 [facility] CBC WITH DIFF 2022-08-23 03:37:00 [facility] D-DIMER 2022-08-23 03:37:00 [facility] Encounters Start Date/Time End Date/Time Encounter Type Admission Type Attending [facility] Facility Care Department Encounter ID Source 2023-04-13 14:27:41 Outpatient [facility] [id number] [facility] 2023-03-21 08:53:30 Outpatient [facility] [id number] [facility] 2023-03-03 07:31:53 Outpatient [facility] [id number] [facility] 2023-03-02 10:10:44 Outpatient [facility] [id number] [facility] 2023-02-18 13:46:02 Outpatient [facility] [id number] [facility] 2023-02-16 08:36:03 Outpatient [facility] [id number] [facility] 2023-02-03 14:23:51 Outpatient [facility] [id number] [facility] 2023-01-25 15:30:57 Outpatient [facility] [id number] [facility] 2023-01-21 17:29:15 Outpatient [facility] [id number] [facility] 2023-01-05 09:13:51 Outpatient [facility] [id number] [facility] 2023-01-03 10:07:41 Outpatient [facility] [id number] [facility] 2023-07-15 13:15:00 2023-07-15 13:15:00 Outpatient ANSELMO VAZQUEZ [facility] [id number] [facility] 2023-06-03 10:30:00 2023-06-03 10:30:00 Outpatient ANSELMO VAZQUEZ [facility] [id number] [facility] 2023-04-01 10:45:00 2023-04-01 11:43:40 Office Visit JamesAnselmo atkinson [facility] [id number] [facility] 2023-03-03 08:00:00 2023-03-03 08:46:13 Procedure Visit JamesAnselmo atkinson [facility] [id number] [id number] [facility] 2023-03-03 00:00:00 2023-03-03 08:45:06 Ancillary Procedure [place] Shilpa 1 - [facility] [id number] [facility] 2023-02-17 13:00:00 2023-02-17 16:11:02 Office Visit GeorgeAnselmo [facility] [id number] [facility] 2023-02-16 09:30:00 2023-02-16 09:37:12 Office Visit Eladio Dolan [facility] 1 [id number] [facility] 2023-01-25 15:35:00 2023-01-25 16:02:34 Outpatient [facility] [id number] [facility] 2023-01-25 15:15:00 2023-01-25 16:01:52 Office Visit Eladio Dolan [facility] 1 [id number] [id number] [facility] 2023-01-05 09:45:00 2023-01-05 10:52:58 Office [facility] 1 [id number] [id number] [facility] 2022-12-15 19:09:00 2022-12-16 04:59:00 Outpt Diag Services [facility] Outpatient Imaging [place] [id number] Daniel Jacobsen 2022-08-30 00:00:00 2022-08-30 00:00:00 Transition of Care Sena Solorzano [facility] [id number] [id number] [id number] [id number] [facility] 2022-08-22 20:03:00 2022-08-25 07:20:00 Inpatient U KELI ROBERTS [facility] [id number] [facility] 2022-08-22 20:03:00 2022-08-25 07:20:00 Hospital Encounter Didi Mayberry Alvah R JENNIE [facility] [id number] [id number] [id number] [id number] [facility] 2022-08-23 05:59:00 2022-08-23 05:59:00 Observatio n IVONE [facility] [id number] Daniel Jacobsen Results Test Description Test Time Test Comments Results Result Co mments [id number]:28:21* Test Item Value Reference Range Interpretation Comme nts RADRPT (test code = RADRPT) PROCEDURE INFORMATION: Exam: XR Right Knee Exam date and time: 12/15/2022 2:38 PM Age: 47 years old Clinical indication: Pain in unspecified knee; Additional info: /m25.569 pain in unspecified knee TECHNIQUE: Imaging protocol: Radiologic exam of the right knee. Views: 3 views. AP Obilque Lateral COMPARISON: No relevant prior studies available. FINDINGS: Bones/joints: There is normal alignment without fractures or dislocations. There is minimal tricompartmental degenerative change with enthesopathy involving the right patella. Soft tissues: There are no radiopaque foreign bodies. Notes: If there is further concern, recommend follow-up radiographs or MRI for complete assessment. [place] OCEDURE INFORMATION: Exam: XR Left Knee Exam date and time: 12/15/2022 2:38 PM Age: 47 years old Clinical indication: Pain in unspecified knee; Additional info: /m25.569 pain in unspecified knee TECHNIQUE: Imaging protocol: Radiologic exam of the left knee. Views: 3 views. AP Obilque Lateral COMPARISON: No relevant prior studies available. FINDINGS: Bones/joints: There is normal alignment without fractures or dislocations. There is minimal tricompartmental degenerative change with enthesopathy involving the left patella. Soft tissues: There are no radiopaque foreign bodies. Notes: If there is further concern, recommend follow-up radiographs or MRI for complete assessment. IM PRESSION: XR Right Knee 1. No fracture or dislocation. 2. Degenerative change. XR Left Knee 1. No fracture or dislocation. 2. Degenerative change. Joseph Fink MD On 12/16/2022 14:26:54; [id number] [facility] dobutamine stress [id number] 23:27:00* Test Item Value Reference Range Interpretation Comme nts Height (test code = 8041239916) in Weight (test code = 4992622732) lbs Systolic BP (test code = 8788282933) mmHg Diastolic BP (test code = 0401484337) mmHg Heart Rate (test code = 7309846363) bpm BSA (test code = 1440394649) 1.[address] Depression (mm) (test code = 5714670266) [address] Depresion (mm) (test code = 3162162001) 0 mm Radiology Study observation (narrative) (test code = 04803-2) ISAIAH (test code = ISAIAH) Table formatting from the original result was not included. ?Post-stress: The post-stress echo shows appropriate increased thickness to all myocardial segments, increased ejection fraction 65-70 and no wall motion abnormalities noted. Left ventricle cavity appears normal post-stress. The left ventricle systolic function is hyperdynamic post-stress. The post-stress echo showed normal wall motion which was hyperdynamic compared to baseline. ?Post-stress?Impression: Adequate hemodynamic response, adequate inotropic response and adequate chronotropic response. This study shows a low prognostic risk. Stress ResultsProtocol: DSE Maximum Predicted HR: 173 Target HR: 147 % Maximum Predicted HR: 87 Stage Duration (mm:ss) Heart Rate (bpm) BP Dose Comment Baseline ?73 117/79 ?Definity 2mL Peak 14:08 151 170/57 40 Atropine .50 Recovery 4 4:00 134 151/61 ?Metoprolol 2.5 Recovery 10 10:00 ? 117/70 ? ?Add'l Recovery ?Stress Duration: 14:08 Recovery Time: 14:29 Maximum Stress HR: 151 ? Left VentriclePlease refer to full echo on udy DetailsA Dobutamine stress echocardiogram was performed using 2D, color flow Doppler and spectral Doppler. The apical, parasternal, subcostal and suprasternal views were obtained. 2 mL of Definity ultrasound enhancing agent used. Patient exhibited sinus rhythm. CR, RNResting ECGNormal sinus rhythm. Resting ECG shows no ST-segment deviation. The ECG shows normal sinus rhythm.Stress FindingsA pharmacological stress test was performed using dobutamine. The patient reported no symptoms during the stress test. Blood pressure demonstrated a normal response and heart rate demonstrated a normal response to stress. The patient's heart rate recovery was abnormal.Stress ECGNo ST deviation was noted. Arrhythmias during stress: rare PVCs. Arrhythmias during recovery: frequent PVCs. The ECG was negative for ischemia.Echo Post StressThe post-stress echo shows appropriate increased thickness to all myocardial segments, increased ejection fraction 65-70 and no wall motion abnormalities noted. Left ventricle cavity appears normal post-stress. The left ventricle systolic function is hyperdynamic post-stress. The post-stress echo showed normal wall motion which was hyperdynamic compared to baseline.Study ImpressionAdequate hemodynamic response, adequate inotropic response and adequate chronotropic response. This study shows a low prognostic risk. [facility] WITH [id number] 13:10:52* Test Item Value Reference Range Interpretation Comme nts WBC (test code = 6690-2) See_Comment [[employer]] The system which generated this result transmitted reference range: 4.30 - 11.10 10*3/?L. The reference range was not used to interpret this result as normal/abnormal. RBC (test code = 789-8) See_Comment [[employer]] The system which generated this result transmitted reference range: 3.93 - 5.25 10*6/?L. The reference range was not used to interpret this result as normal/abnormal. HGB (test code = 718-7) 11.7 g/dL 11.6-15.0 HCT (test code = 4544-3) 36.5 % 35.7-45.2 MCV (test code = 787-2) 83.5 fL 80.6-95.5 MCH (test code = 785-6) 26.8 pg 25.9-32.8 MCHC (test code = 786-4) 32.1 g/dL 31.6-35.1 RDW-SD (test code = 72847-7) 43.0 fL 39.0-49.9 RDW-CV (test code = 788-0) 14.0 % 12.0-15.5 PLT (test code = 777-3) See_Comment [[employer]] The system which generated this result transmitted reference range: 166 - 358 10*3/?L. The reference range was not used to interpret this result as normal/abnormal. MPV (test code = 65930-5) 10.0 fL 9.5-12.9 NRBC/100 WBC (test code = 7325122270) See_Comment [Autom[employer]] The system which generated this result transmitted reference range: 0.0 - 10.0 /100 WBCs. The reference range was not used to interpret this result as normal/abnormal. NRBC x10^3 (test code = 4357302569) See_Comment [Automated messa ge] The system which generated this result transmitted reference range: 10*3/?L. The reference range was not used to interpret this result as normal/abnormal. GRAN MAT (NEUT) % (test code = 770-8) 43.0 % IMM GRAN % (test code = 4037192901) 0.40 % LYMPH % (test code = 736-9) 49.2 % MONO % (test code = 5905-5) 5.6 % EOS % (test code = 713-8) 1.4 % BASO % (test code = 706-2) 0.4 % GRAN MAT x10^3(ANC) (test code = 1552905537) 2.15 10*3/uL 1.88-7.09 IMM GRAN x10^3 (test code = 4307886851) 0.00-0.06 LYMPH x10^3 (test code = 731-0) 2.46 10*3/uL 1.32-3.29 MONO x10^3 (test code = 742-7) 0.28 10*3/uL 0.33-0.92 L EOS x10^3 (test code = 711-2) 0.07 10*3/uL 0.03-0.39 BASO x10^3 (test code = 704-7) 0.01-0.07 REACT LYMPHS (test code = 0892408546) Moderate Lab Interpretation (test code = 33368-9) Abnormal [facility] METABOLIC PANEL (NA, K, CL, CO2, GLUCOSE, BUN, CREATININE, CA)2022-08-25 12:41:57* Test Item Value Reference Range Interpretation Comme nts NA (test code = 5402052722) 138 mmol/L 135-145 K (test code = 0660283641) 3.9 mmol/L 3.5-5.0 CL (test code = 5552495021) 104 mmol/L 98-108 CO2 TOTAL (test code = 7816822817) 30 mmol/L 23-31 AGAP (test code = 6078163497) 2-16 BUN (test code = 3051226284) 18 mg/dL 7-23 GLUCOSE (test code = 4079150835) 106 mg/dL 70-110 CREATININE (test code = 8237896598) 1.00 mg/dL 0.50-1.04 CALCIUM (test code = 9862693170) 8.2 mg/dL 8.6-10.6 L eGFR (test code = 5458781327) mL/min/1.73m2 ISAIAH (test code = ISAIAH) Association of Glomerular Filtration Rate (GFR) and Staging of Kidney Disease* + --+ --+ ------+| GFR (mL/min/1.73 m2) ?| With Kidney Damage ?| ?Without Kidney Damage+ --------+ --------+ +| ?>90 ?| ?Stage one ?| ? Normal ?+ ---+ ---+ -------+| ?60-89 ?| ?Stage two ?| ? Decreased GFR ? + --+ --+ ------+| ?30-59 ?| ?Stage three ?| ? Stage three ? + --+ --+ ------+| ?15-29 ?| ?Stage four ? | ? Stage four ?+ ---+ ---+ -------+| ?<15 (or dialysis) ? ?| ?Stage five ? | ? Stage five ?+ ---+ ---+ -------+ *Each stage assumes the associated GFR level has been in effect for at least three months. ?Stages 1 to 5, with or without kidney disease, indicate chronic kidney disease. Notes: Determination of stages one and two (with eGFR >59mL/min/1.73 m2) requires estimation of kidney damage for at least three months as defined by structural or functional abnormalities of the kidney, manifested by either:Pathological abnormalities or Markers of kidney damage (including abnormalities in the composition of the blood or urine or abnormalities in imaging tests). Lab Interpretation (test code = 14982-8) [facility] 22:41:07* Test Item Value Reference Range Interpretation Comme nts Height (test code = 9200198693) in Weight (test code = 6653600944) lbs Systolic BP (test code = 3163662272) mmHg Diastolic BP (test code = 2524316156) mmHg Heart Rate (test code = 8643301673) bpm LVOT stroke volume (test code = 9942819197) 56.80 cm3 EF(Teich) (test code = 9227277291) 64.30 % LVIDD (test code = 2804084385) 3.70 cm LVIDS (test code = 3828024467) 2.44 cm Left Ventricular End Systolic Volume by Teichholz Method (test code = 5364966) 21.1 mL Left Ventricular End Diastolic Volume by Teichholz Method (test code = 3579356) 58.9 mL IVS (test code = 3139027339) 0.94 cm LVPWD (test code = 1766883018) 1.09 cm LVOT diameter (test code = 8310350414) 1.92 cm LVOT area (test code = 7007159366) 2.90 cm2 FS (test code = 5249972177) 34 % LA volume (BP) (test code = 6870749115) 28.4 mL LVOT peak kwabena (test code = 9458147458) 108.0 cm/s LVOT mn grad (test code = 9791078545) mmHg LA size (test code = 1998707869) 2.6 cm LAV(MOD-sp2) (test code = 5818559486) 28.30 mL LAV(MOD-sp4) (test code = 0121074652) 28.20 mL Tapse (test code = 3300739389) 1.89 cm Aortic valve mean velocity (test code = 4847364674) 71.1 cm/s Ao peak kwabena (test code = 6285135820) 119.3 cm/s Ao VTI (test code = 8301861576) 23.0 cm AV LVOT peak gradient (test code = 0466197272) mmHg LVOT peak VTI (test code = 5538038187) 19.5 cm AV area by cont VTI (test code = 1517989122) 2.5 cm2 AV area peak kwabena (test code = 9165609167) 2.6 cm2 LV V1 mean (test code = 6215295812) 63.00 cm/s Ao max PG (test code = 9459527753) 5.70 mm[Hg] MV Prop V (test code = 5813867889) 64.80 cm/s TR Peak Kwabena (test code = 5930057285) 225.9 cm/s Triscuspid Valve Regurgitation Peak Gradient (test code = 2629216091) mmHg Ao root diam (test code = 5506521524) 2.90 cm AV peak gradient (test code = 6391260548) mmHg AV valve area (test code = 9921876342) 2.47 cm2 AV mean gradient (test code = 1244063463) mmHg Aortic root (test code = 2679145938) 2.9 cm Ao root annulus (test code = 3453166907) 2.9 cm PW (test code = 5564283214) 1.09 cm 0.6-1.1 EF - 2D (test code = 99139470) 64.30 % Interventricular Septum Diastolic Thickness by 2D (test code = 8103050) 0.94 cm LA Volume Index (BP) (test code = 1784298721) 14.3 mL/m2 BSA (test code = 7164269232) 1.99 m2 Radiology Study observation (narrative) (test code = 00616-2) ISAIAH (test code = ISAIAH) ?Left?Ventricle: Left ventricle size is normal. Ventricular mass is normal. There is concentric remodeling. Normal wall motion. No regional wall motion abnormalities. Estimated EF is 60 - 65%. Normal diastolic function. ?Right?Ventricle: Right ventricle size is normal. Normal wall motion. Normal systolic function. ?Left?Atrium: Left atrium size is normal. ?Tricuspid?Valve: Insufficient tricuspid regurgitation jet to estimate RVSP.Right ventricular systolic pressure is 20-25 mmHg. ?RA pressure is 0-5 mmHg. Meek Wynn Left VentricleLeft ventricle size is normal. Ventricular mass is normal. There is concentric remodeling. Normal wall motion. No regional wall motion abnormalities. Estimated EF is 60 - 65%. Normal diastolic function.Right VentricleRight ventricle size is normal. Normal wall motion. Normal systolic function.Left AtriumLeft atrium size is normal.Right AtriumNot well visualized.IVC/SVCIVC diameter is less than or equal to 21 mm and decreases greater than 50% during inspiration; therefore the estimated right atrial pressure is normal (~0-5 mmHg).Mitral ValveMitral valve structure is normal. No transvalvular regurgitation. No stenosis.Tricuspid ValveNot well visualized. Insufficient tricuspid regurgitation jet to estimate RVSP.Right ventricular systolic pressure is 20-25 mmHg. RA pressure is 0-5 mmHg. No stenosis.Aortic ValveTricuspid. No hemodynamically significant .Pulmonic ValveNot well visualized. Physiologically normal transvalvular regurgitation. No stenosis.Ascending AortaNormal sized sinus of Valsalva.PericardiumNo pericardial effusion.Study DetailsA complete echocardiogram was performed using 2D, color flow Doppler and spectral Doppler. The apical, parasternal and subcostal views were obtained. Lumason ultrasound enhancing agent used. [facility]"
--- NOTE | 2025-01-30 17:48 | RAD REPORT ---
EXAMINATION: CT CERVICAL SPINE WITHOUT CONTRAST HISTORY: PAIN COMPARISON: None TECHNIQUE: Multiple contiguous axial images were obtained in a CT of the cervical spine without IV co ntrast. Sagittal and coronal reformats were performed. One or more of the following dose reduction techniques were used: Automated exposure control, adjustment of the mA and kV according to patient si ze, and iterative reconstruction. Unless otherwise specified, incidental findings do not require dedicated imaging follow-up. FINDINGS: The vertebral bodies and intervertebral discs demonstrate normal height. No fracture or dislocation. Reversal of normal cervical lordosis.. Prominent mid cervical degenerative change with disc thinning and posterior osteophyte C3-4 and C4-5. No prevertebral soft tissue swelling is seen. The posterior facets are well aligned. Mild levoscoliosis.. The odontoid appears normal and the later al masses are symmetric. The lung apices are unremarkable. Right lobe of the thyroid appears prominent. IMPRESSION: No evidence of acute osseous abnormality of the cervical spine. Reversal of normal cervical lordosis may be related to muscle spasm or positioning.
--- NOTE | 2025-01-30 17:53 | RAD REPORT ---
EXAM: CT CHEST, ABDOMEN AND PELVIS WITHOUT CONTRAST CLINICAL INDICATION: BACK PAIN TECHNIQUE: CT chest, abdomen and pelvis was performed without contrast, as per department protocol. A xial, sagittal and coronal reconstructions were obtained. One or more of the following dose reduction techniques were used: Automated exposure control, adjustment of the mA and/or kV according to patient size, and/or iterative reconstruction. Unless otherwise specified, incidental findings do not require dedicated imaging follow-up. Examination is limited by the lack of intravenous contrast material. COMPARISON: No prior exam. FINDINGS: LUNGS: No evidence of airspace or interstitial process. No nodules. PLEURA: No pleural effusion. No pneumothorax. MEDIASTINUM AND LYMPH NODES: No mediastinal mass or fluid collection. Normal size mediastinal, hilar, and axillary lymph nodes. OSSEOUS STRUCTURES AND CHEST WALL: Intact. LIVER: Normal in size and contour. No focal lesion or biliary dilatation. Grossly unremarkable gallbl adder. PANCREAS: No mass, ductal dilation, or dylan-pancreatic fluid. SPLEEN: Normal size. No focal lesion. ADRENALS: Normal; no mass. KIDNEYS: Normal size and contour. No hydronephrosis. URINARY BLADDER: Normal contour. GASTROINTESTINAL TRACT: No bowel obstruction, free air, significant free fluid or abscess. APPENDIX: Normal appendix. LYMPH NODES: No lymphadenopathy. MUSCULOSKELETAL: No acute or suspicious osseous abnormality. OTHER: IMPRESSION: No acute seen in the chest, abdomen or pelvis.
--- NOTE | 2025-01-30 19:20 | ER ---
Nurse's Notes [facility] Name: Italia Avendano Age: 49 yrs Sex: Female : 1975 Arrival Date: 01/30/2025 Time: 15:36 Bed DX3 Private MD: Diagnosis: Low back pain;Unspecified symptoms and signs involving the musculoskeletal system;Strain of muscle and tendon of back wall of thorax;Sciatica, right side Presentation: 01/30 16:28 Chief complaint: Patient states: mid back pain radiating to right leg, feels like a iw bunch of needles, started Tuesday , no injury , feels heavy, she bent forward and that's when she felt the pain in Tuesday. Coronavirus screen: At this time, the client does not indicate any symptoms associated with coronavirus-19. Ebola Screen: No symptoms or risks identified at this time. Initial Sepsis Screen: Does the patient meet any 2 criteria? No. Patient's initial sepsis screen is negative. Does the patient have a suspected source of infection? No. Patient's initial sepsis screen is negative. Risk Assessment: Do you want to hurt yourself or someone else? Patient reports no desire to harm self or others. Onset of symptoms was January 25, 2025. 16:28 Method Of Arrival: Ambulatory iw 16:28 Acuity: BARRY 3 iw 16:30 Chief complaint: Patient states: also has pain to back of neck and shoulders. iw Historical: - Allergies: 16:29 Iodinated Contrast Media - IV Dye; needs benadryl before; iw 16:29 PENICILLINS; iw 16:29 SHELLFISH; iw - PMHx: 16:29 Hypertension; ovarian cancer; THYROID CANCER; Thyroid problem; iw - PSHx: 16:29 Thyroidectomy; tubal ligation; iw - Infectious Disease History:: Denies. Vital Signs: 16:28 BP 126 / 90; Pulse 86; Resp 16; Temp 97.6; Pulse Ox 100% on R/A; Weight 88.45 kg; iw Height 5 ft. 3 in. ; Pain 8/10; 16:28 Body Mass Index 34.54 (88.45 kg, 160.02 cm) iw 16:28 Pain Scale: Adult iw ED Course: 15:39 Patient arrived in ED. im 16:23 Jourdan Sanchez MD is Attending Physician. vince 16:29 Triage completed. iw 16:30 Arm band placed on. iw 17:22 CT C Spine In Process Unspecified. EDMS 17:23 CT Chest Abdomen Pelvis W/O Contrast In Process Unspecified. EDOR 19:19 Td Donnelly MD is Referral Physician. vince Administered Medications: 19:42 Drug: Ketorolac IM 60 mg IM once Route: IM; Site: right gluteus; ll1 19:43 Follow up: Response: Medication administered at discharge. ll1 19:43 CANCELLED (Physician Discretion): ns 0.9% 1000 ml IV at 1000 ml once; to be given as a ll1 bolus over 60 minutes 19:43 Drug: Dexamethasone PO 10 mg PO once Route: PO; ll1 19:44 Follow up: Response: Medication administered at discharge. 1 Outcome: 19:20 Discharge ordered by . [facility] 19:49 Discharged to home ambulatory, ll1 19:49 Condition: stable 19:49 Discharge instructions given to patient, Instructed on discharge instructions, follow up and referral plans. medication usage, Demonstrated understanding of instructions, follow-up care, medications, Prescriptions given X 4, 19:49 Patient left the ED. 1 Signatures: Dispatcher [employer] Jourdan Kwok MD MD cha Williams, Irene, RN DESHAWN Vianney Doty RN RN [facility] Kristi Trujillo Corrections: (The following items were deleted from the chart) 16:30 16:28 BP 126 / 90; Pulse 86bpm; Resp 16bpm; Pulse Ox 100% RA; Temp 97.6F; iw
--- NOTE | 2025-01-30 19:21 | EDPHYS ---
Physician Documentation [facility] Name: Italia Avendano Age: 49 yrs Sex: Female : 1975 Arrival Date: 01/30/2025 Time: 15:36 Bed DX3 Private MD: ED Physician Jourdan Sanchez HPI: 01/30 19:12 This 49 yrs old Black Female presents to ER via Ambulatory with complaints of Low Back vince Pain, Leg Pain, buttock pain, Neck Pain, <24hrs Old. 19:12 The patient presents with pain that is acute, and decreased range of motion. The vince symptoms are located in the thoracic area and lumbar area. The pain radiates to the right low back. The problem was sustained when bending over, when lifting. Onset: The symptoms/episode began/occurred 3 day(s) ago. Modifying factors: The patient symptoms are alleviated by nothing, remaining still, the patient symptoms are aggravated by any movement, bending, standing. Associated signs and symptoms: Pertinent positives:. Severity of symptoms: At their worst the symptoms were moderate, severe, in the emergency department the symptoms are unchanged. The patient has experienced similar episodes in the past, a few times. Historical: - Allergies: 16:29 Iodinated Contrast Media - IV Dye; needs benadryl before; iw 16:29 PENICILLINS; iw 16:29 SHELLFISH; iw - PMHx: 16:29 Hypertension; ovarian cancer; THYROID CANCER; Thyroid problem; iw - PSHx: 16:29 Thyroidectomy; tubal ligation; iw - Infectious Disease History:: Denies. ROS: 19:14 Constitutional: Negative for fever, chills, and weight loss, Eyes: Negative for injury, vince pain, redness, and discharge, ENT: Negative for injury, pain, and discharge, Neck: Negative for injury, pain, and swelling, Cardiovascular: Negative for chest pain, palpitations, and edema, Respiratory: Negative for shortness of breath, cough, wheezing, and pleuritic chest pain, Abdomen/GI: Negative for abdominal pain, nausea, vomiting, diarrhea, and constipation, : Negative for injury, bleeding, discharge, and swelling, MS/Extremity: Negative for injury and deformity, Skin: Negative for injury, rash, and discoloration, Neuro: Negative for headache, weakness, numbness, tingling, and seizure, Psych: Negative for depression, anxiety, suicide ideation, homicidal ideation, and hallucinations, Allergy/Immunology: Negative for hives, rash, and allergies, Endocrine: Negative for neck swelling, polydipsia, polyuria, polyphagia, and marked weight changes, Hematologic/Lymphatic: Negative for swollen nodes, abnormal bleeding, and unusual bruising, 19:14 Back: Positive for decreased range of motion, pain at rest, pain with movement, radiated pain, 19:14 MS/extremity: Positive for pain, tenderness, of the right lower back and right gluteus zeinab, Exam: 19:14 Constitutional: This is a well developed, well nourished patient who is awake, alert, vince and in no acute distress. Head/Face: Normocephalic, atraumatic. Eyes: Pupils equal round and reactive to light, extra-ocular motions intact. Lids and lashes normal. Conjunctiva and sclera are non-icteric and not injected. Cornea within normal limits. Periorbital areas with no swelling, redness, or edema. ENT: Nares patent. No nasal discharge, no septal abnormalities noted. Tympanic membranes are normal and external auditory canals are clear. Oropharynx with no redness, swelling, or masses, exudates, or evidence of obstruction, uvula midline. Mucous membranes moist. Neck: Trachea midline, no thyromegaly or masses palpated, and no cervical lymphadenopathy. Supple, full range of motion without nuchal rigidity, or vertebral point tenderness. No Meningismus. Chest/axilla: Normal chest wall appearance and motion. Nontender with no deformity. No lesions are appreciated. Cardiovascular: Regular rate and rhythm with a normal S1 and S2. No gallops, murmurs, or rubs. Normal PMI, no JVD. No pulse deficits. Respiratory: Lungs have equal breath sounds bilaterally, clear to auscultation and percussion. No rales, rhonchi or wheezes noted. No increased work of breathing, no retractions or nasal flaring. Abdomen/GI: Soft, non-tender, with normal bowel sounds. No distension or tympany. No guarding or rebound. No evidence of tenderness throughout. Skin: Warm, dry with normal turgor. Normal color with no rashes, no lesions, and no evidence of cellulitis. Neuro: Awake and alert, GCS 15, oriented to person, place, time, and situation. Cranial nerves II-XII grossly intact. Motor strength 5/5 in all extremities. Sensory grossly intact. Cerebellar exam normal. Normal gait. Psych: Awake, alert, with orientation to person, place and time. Behavior, mood, and affect are within normal limits. 19:14 Abdomen/GI: Inspection: abdomen appears normal, Bowel sounds: normal, Palpation: abdomen is soft and non-tender, Liver: no appreciated palpable abnormalities, Hernia: not appreciated, 19:14 Back: pain, that is moderate, of the thoracic area, lumbar area and right low back, muscle spasm, is appreciated in the left low back, left mid back, right mid back and right low back, 19:14 Musculoskeletal/extremity: ROM: limited active range of motion, limited passive range of motion, limited active range of motion due to pain, limited passive range of motion due to pain, in the right hip, Vital Signs: 16:28 BP 126 / 90; Pulse 86; Resp 16; Temp 97.6; Pulse Ox 100% on R/A; Weight 88.45 kg; iw Height 5 ft. 3 in. ; Pain 8/10; 16:28 Body Mass Index 34.54 (88.45 kg, 160.02 cm) iw 16:28 Pain Scale: Adult iw MDM: 16:23 Medical Screening Exam initiated vince 19:17 Differential diagnosis: arthritis, strain, fracture, sciatica, contusion, Herniated vince disc UTI, arthritis, chronic back pain, Fatigue Fracture Ligament Injury Osteoarthritis Osteoporosis ruptured disc, Scoliosis spinal injury, Ureterolithiasis vertebral fracture. Data reviewed: vital signs, nurses notes, radiologic studies, CT scan. Independent interpretation of the following test(s) in the Emergency Department CT Scan: My interpretation is CT C SPINE,CAP. Test considered but Not performed: MRI: NO SPINAL MRI. Care significantly affected by the following chronic conditions: Hypertension, Cancer, THYROID PROBLEM. Counseling: I had a detailed discussion with the patient and/or guardian regarding the historical points, exam findings, and any diagnostic results supporting the discharge/admit diagnosis, radiology results, the need for outpatient follow up, for definitive care, a family practitioner, a neurologist. 01/30 16:27 Order name: CT C Spine; Complete Time: 18:07 [facility] 01/30 16:27 Order name: CT Chest Abdomen Pelvis W/O Contrast; Complete Time: 18:07 vince Administered Medications: 19:42 Drug: Ketorolac IM 60 mg IM once Route: IM; Site: right gluteus; ll1 19:43 Follow up: Response: Medication administered at discharge. ll1 19:43 CANCELLED (Physician Discretion): ns 0.9% 1000 ml IV at 1000 ml once; to be given as a ll1 bolus over 60 minutes 19:43 Drug: Dexamethasone PO 10 mg PO once Route: PO; ll1 19:44 Follow up: Response: Medication administered at discharge. ll1 Disposition Summary: 01/30/25 19:20 Discharge Ordered Notes: Location: Home vince Problem: new vince Symptoms: have improved vince Condition: Stable vince Diagnosis - Low back pain vince - Unspecified symptoms and signs involving the musculoskeletal system vince - Strain of muscle and tendon of back wall of thorax vince - Sciatica, right side vince Followup: vince - With: Private Physician - When: 2 - 3 days - Reason: Recheck today's complaints, Continuance of care, Re-evaluation by your physician Followup: vince - With: Td Donnelly MD - When: 2 - 3 days - Reason: Recheck today's complaints, Re-evaluation by your physician Discharge Instructions: - Discharge Summary Sheet vince - Acute Back Pain, Adult vince - Musculoskeletal Pain vince - Sciatica vince - Back Injury Prevention, [id number] vince - Sciatica, [id number] vince - Radicular Pain [facility] Forms: - Medication Reconciliation Form vince - Antibiotic Education vince - Prescription Opioid Use vince - Patient Portal Instructions [facility] - Leadership Thank You Letter [facility] Prescriptions: - Ibuprofen 600 mg Oral Tablet - take 1 tablet ORAL route every 6 hours As needed take with food; 30 tablet; vince Refills: 0, Product Selection Permitted - methocarbamol 750 mg Oral tablet - take 1 tablet ORAL route every 6 hours PRN; 28 tablet; Refills: 0, Product vince Selection Permitted - Tylenol-Codeine #3 300mg-30mg Oral tablet - take 2 tablets ORAL route every 6 hours As needed; 20 tablet; Refills: 0, [facility] Product Selection Permitted - Dexamethasone 4mg Oral tablet - take 1 tablet ORAL route daily for 4 days; 4 tablet; Refills: 0, Product vince Selection Permitted Signatures: Dispatcher [employer] Jourdan Kwok MD MD cha Williams, Irene, RN RN iw Vianney Doty RN RN ll1 Corrections: (The following items were deleted from the chart) 19:43 16:27 NS 0.9% IV 1000 ml IV at 1000 ml once; to be given as a bolus over 60 minutes ll1 ordered. vince
[2025-01-30] MEDS ORDERED: dexAMETHasone 4 MG TAB ONE (19:34)
[2025-01-30] MEDS ORDERED: KETOROLAC 30 MG/ML INJ ONE ×2 (19:34→19:35)
[2025-01-30 20:42] VITALS: BP 128/73; TEMP 98; O2SAT 99
== END 2025-01-30 19:49 | disposition home or self-care (01) ==
LOC: ER 15:36
DX: M54.31 Sciatica, right side (principal); S29.012A Strain of muscle and tendon of back wall of thorax, initial encounter; R29.91 Unspecified symptoms and signs involving the musculoskeletal system
CPT/HCPCS: 71250; 72125; 74176; J8540